=== PATIENT | female | born 1945 | race Caucasian/White ===

== ENCOUNTER → 2016-07-10 | Outpatient (CLI) | payer OTHER ==
[~2016-07-10] MED LIST: ASPI-232 PO; ATOR-22 PO; BROM0.07 OPL; CANA1TAB PO; CEPH500C2 PO; CHOL2000 PO; CIPR1TAB11 PO; FLUO20CA35 PO; FLUO27.5 PO; FLUT0.15 INH; FMR25 PO; GLC5 PO; GLC500 PO; GLUC10007 PO; LEVO125T4 PO; LEVO150T9 PO; LEVO175T PO; LISI2.5T5 PO; OXYB5TAB74 PO; PRED1SUS3 OPR; PRED20TA2 PO; TRN400 PO; VNTHFA/IN INH
--- NOTE | 2016-07-10 16:05 | DIAGNOSTIC IMAGING REPORT ---
PELVIC ULTRASOUND CLINICAL HISTORY: Postmenopausal bleeding. Status post right oophorectomy. COMPARISON STUDY: CT of the abdomen and pelvis November 21, 2011 and pelvic ultrasound January 21, 2013. TECHNIQUE: Transabdominal and transvaginal sonography of the pelvis was performed. FINDINGS: The uterus measures 6 x 3.4 x 2.5 cm. There is fluid within the endometrial cavity. The endometrium measures 4 mm in thickness. The left ovary was not visualized. Within the right adnexa, there is a 5.3 x 5 x 2.9 cm cystic abnormality. This is similar in appearance to exam of April 23, 2012. This remains indeterminate. No color flow shown within this finding. Slight irregularity of the wall is noted without definite mural nodularity. IMPRESSION: 1. No change in the 5.3 cm cystic focus within the right adnexa since ultrasound of April 23, 2012. Correlation with prior surgical history is recommended. By report, the patient is status post right oophorectomy. The imaging appearance favors a benign etiology although is considered pathologic in a postmenopausal patient. 2. Small amount of fluid within the endometrial cavity, a nonspecific finding. No significant endometrial thickening. 3. Nonvisualization of the left ovary. Electronically signed by: Ismael Darling M.D. 07/10/2016 4:04 PM Dictated Date/Time: 07/10/2016 3:59 PM
== END | disposition home or self-care (01) ==
LOC: C.ULTRBC 14:39
PROVIDERS: ATTEND Family Medicine
DX: N95.0 Postmenopausal bleeding (principal)

== ENCOUNTER → 2016-07-29 | Outpatient (CLI) | payer OTHER ==
[~2016-07-29] MED LIST changes: -BROM0.07 OPL; -LEVO175T PO; -PRED1SUS3 OPR
== END | disposition home or self-care (01) ==
LOC: C.PATHSPEC 17:36
PROVIDERS: ATTEND Obstetrics & Gynecology
DX: N95.0 Postmenopausal bleeding (principal); N85.8 Other specified noninflammatory disorders of uterus; Z51.0 Encounter for antineoplastic radiation therapy; C50.511 Malignant neoplasm of lower-outer quadrant of right female breast

== ENCOUNTER 2016-09-03 18:36 | Emergency (ER) | payer OTHER ==
[~2016-09-03] VITALS: Ht 170.2 cm; Wt 98.0 kg
[~2016-09-03 18:36] MED LIST changes: -CEPH500C2 PO; -DTR/5 PO; -FLUO27.5 PO; -GLUC10007 PO; -GLUCTAB7 PO; -LEVO125T5 PO; -LPT/40 PO; +OXYB5TAB74 PO; -PRED20TA2 PO; -TERB1CRE10 TOP; -VNTHFA/IN INH
[2016-09-03 18:40] VITALS: TEMP 36.6; Ht 170.2 cm; Wt 98.0 kg
[2016-09-03] MEDS ORDERED: SODIUM CHLORIDE 0.9% 1000ML 1,000 ML IV STA ×2 (18:51→19:41)
--- NOTE | 2016-09-03 18:54 | EMERGENCY ROOM VISIT NOTE ---
History Report prepared by Tomer: Alla Bhat Under the Supervision of: Dr. Ken Goode D.O. First contact with patient: 18:47 Chief Complaint: ABNORMAL LABS Stated Complaint: ABNORMAL LAB LEVELS History of Present Illness The patient is a 70 year old female who presents to the Emergency Room with complaints of abnormal lab results starting earlier today. The patient states that for the last 3 weeks she has been having respiratory issues and her PCP prescribed her prednisone and an antibiotic. The patient states that today she had a follow up today following radiation treatments ending in July and saw a [facility]. At this time she had blood work done and had a chest X-ray performed but they stated that tomorrow they would call her with the results. Later in the day the patient got a call stating her blood glucose was over 500 and her bilirubin was above 2 and to come into the ED to be evaluated. The patient states that she has not had any chest pain, pain or swelling in her legs or any recent fevers. The patient states that she had breast cancer and was treated with radiation treatments and did not need chemotherapy treatment and is currently not in need of further treatment. The patient states that she has been experiencing some increase in urinary frequency recently. Source of History: patient Onset: earlier today CLINICAL CYTOGENETICS DIRECTOR Position: other (global) Symptom Intensity: 500 blood glucose Associated Symptoms: + urinary symptoms (increased frequency), No chest pain , No fevers Note: Patient denies any leg pain or swelling Review of Systems See HPI for pertinent positives & negatives. A total of 10 systems reviewed and were otherwise negative. Past Medical & Surgical Medical Problems: (1) Peripheral artery disease (2) Type 2 diabetes mellitus Surgical Problems: (1) History of total adrenalectomy (2) History of tubal ligation Family History Patient reports no known family medical history. Social History Smoking Status: Former Smoker Alcohol Use: none Drug Use: none Marital Status: Occupation Status: employed Current/Historical Medications Scheduled Albuterol Hfa (Ventolin Hfa), 1 PUFF INH Q4 Aspirin (Aspir-81), 1 TAB PO DAILY Atorvastatin (Lipitor), 40 MG PO QAM Canagliflozin (Invokana), 1 TAB PO QAM Cephalexin Monohydrate (Keflex), 500 MG PO TID Cholecalciferol (Vitamin D3), 2 CAP PO DAILY Ciprofloxacin Tab (Cipro), 1 TAB PO BID Fluoxetine Hcl (Fluoxetine Hcl), 60 MG PO DAILY Glipizide (Glipizide), 1 TAB PO QAM Letrozole (Femara), 1 TAB PO DAILY Levothyroxine Sodium (Levothyroxine Sodium), 1 TAB PO DAILY Lisinopril (Lisinopril), 2.5 MG PO QAM Metformin HCl (Metformin HCl), 1,000 MG PO BID Oxybutynin Chloride (Ditropan), 10 MG PO QAM Pentoxifylline (Pentoxifylline ER), 1 TAB PO TID Scheduled PRN Fluticasone Propionate (Nasal) (Flonase Allergy Relief), 2 SPRAYS INH BID PRN for Nasal Congestion Miscellaneous Medications Prednisone (Prednisone Tab), 20 MG PO Allergies Coded Allergies: Coffee (Verified Allergy, Severe, TONGUE SWELLING,HIVES-COFFEE BEANS, 09/11) Magnesium Salicylate (Verified Adverse Reaction, Mild, migraines, 09/12/15) Physical Exam Vital Signs Date Time Temp Pulse Resp B/P Pulse Ox O2 Delivery O2 Flow Rate FiO2 09/03/16 21:42 74 18 139/74 99 09/03/16 20:15 72 17 118/53 95 Room Air 09/03/16 18:40 36.6 93 20 121/73 97 Physical Exam GENERAL: Patient is awake, alert, and in no acute distress. Patient is resting comfortably and showing no signs of anxiety EYES: The conjunctivae are clear. The pupils are round and reactive. EARS, NOSE, MOUTH AND THROAT: The nose is without any evidence of any deformity. Mucous membranes are moist tongue is midline NECK: The neck is nontender and supple. RESPIRATORY: Normal respiratory effort is noted there is no evidence of wheezing rhonchi or rales CARDIOVASCULAR: Regular rate and rhythm noted there no murmurs rubs or gallops normal S1 normal S2 GASTROINTESTINAL: The abdomen is soft. Bowel sounds are present in all quadrants. Abdomen is nontender MUSCULOSKELETAL/EXTREMITIES: There is no evidence of gross deformity full range of motion is noted in the hips and shoulders SKIN: There is no obvious evidence of any rash. There are no petechiae, pallor or cyanosis noted. NEUROLOGIC: Patient is awake alert and oriented x3. Medical Decision & Procedures ER Provider Diagnostic Interpretation: X-ray results as stated below per interpretation by me and the radiologist. CHEST 2 VIEWS ROUTINE CLINICAL HISTORY: cough dyspnea COMPARISON STUDY: HISTORY: 2015 FINDINGS: The bones soft tissues and hemidiaphragms are normal. The cardiomediastinal silhouette is normal. The lungs are clear. The pulmonary vasculature is normal. IMPRESSION: Negative chest. Electronically signed by: Rufus Perez M.D. 09/03/2016 8:22 PM Dictated Date/Time: 09/03/2016 8:22 PM Laboratory Results 09/03/16 19:05 Red Blood Count 5.09, Mean Corpuscular Volume 88.8, Mean Corpuscular Hemoglobin 31.2, Mean Corpuscular Hemoglobin Concent 35.2, Mean Platelet Volume 10.1, Neutrophils (%) (Auto) 68.4, Lymphocytes (%) (Auto) 21.2, Monocytes (%) (Auto) 7.9, Eosinophils (%) (Auto) 0.8, Basophils (%) (Auto) 0.2, Neutrophils # (Auto) 8.67, Lymphocytes # (Auto) 2.69, Monocytes # (Auto) 1.00, Eosinophils # (Auto) 0.10, Basophils # (Auto) 0.02 09/03/16 19:05 Test 09/03/16 19:05 09/03/16 20:00 White Blood Count 12.67 K/uL (4.8-10.8) Red Blood Count 5.09 M/uL (4.2-5.4) Hemoglobin 15.9 g/dL (12.0-16.0) Hematocrit 45.2 % (37-47) Mean Corpuscular Volume 88.8 fL (80-100) Mean Corpuscular Hemoglobin 31.2 pg (25-34) Mean Corpuscular Hemoglobin Concent 35.2 g/dl (32-36) Platelet Count 299 K/uL (130-400) Mean Platelet Volume 10.1 fL (7.4-10.4) Neutrophils (%) (Auto) 68.4 % Lymphocytes (%) (Auto) 21.2 % Monocytes (%) (Auto) 7.9 % Eosinophils (%) (Auto) 0.8 % Basophils (%) (Auto) 0.2 % Neutrophils # (Auto) 8.67 K/uL (1.4-6.5) Lymphocytes # (Auto) 2.69 K/uL (1.2-3.4) Monocytes # (Auto) 1.00 K/uL (0.11-0.59) Eosinophils # (Auto) 0.10 K/uL (0-0.5) Basophils # (Auto) 0.02 K/uL (0-0.2) RDW Standard Deviation 42.0 fL (36.4-46.3) RDW Coefficient of Variation 12.9 % (11.5-14.5) Immature Granulocyte % (Auto) 1.5 % Immature Granulocyte # (Auto) 0.19 K/uL (0.00-0.02) Prothrombin Time 10.2 SECONDS (9.0-12.0) Prothromb Time International Ratio 1.0 (0.9-1.1) Activated Partial Thromboplast Time 27.2 SECONDS (21.0-31.0) Partial Thromboplastin Ratio 1.0 Venous Blood pH 7.41 (7.36-7.41) Venous Blood Partial Pressure CO2 35 mmHg (38.0-50.0) Venous Blood Partial Pressure O2 37 mmHg Venous Blood HCO3 22 mmol/L Venous Blood Oxygen Saturation 68.5 % Venous Blood Base Excess -2.3 mmol/L Anion Gap 17.0 mmol/L (3-11) Est Creatinine Clear Calc Drug Dose 33.6 ml/min Estimated GFR () 30.6 Estimated GFR (Non- 26.4 BUN/Creatinine Ratio 19.6 (10-20) Calcium Level 9.6 mg/dl (8.5-10.1) Total Bilirubin 1.4 mg/dl (0.2-1) Direct Bilirubin 0.2 mg/dl (0-0.2) Aspartate Amino Transf (AST/SGOT) 14 U/L (15-37) Alanine Aminotransferase (ALT/SGPT) 31 U/L (12-78) Alkaline Phosphatase 106 U/L (45-117) Total Creatine Kinase 41 U/L (26-192) Creatine Kinase MB 2.0 ng/ml (0.5-3.6) Creatine Kinase MB Ratio 4.9 (0-3.0) Troponin I < 0.015 ng/ml (0-0.045) Total Protein 7.1 gm/dl (6.4-8.2) Albumin 3.5 gm/dl (3.4-5.0) Lipase 152 U/L (73-393) Beta-Hydroxybutyric Acid 1.36 mg/dL (0.2-2.81) Urine Color YELLOW Urine Appearance CLEAR (CLEAR) Urine pH 5.0 (4.5-7.5) Urine Specific Hines 1.032 (1.000-1.030) Urine Protein NEG (NEG) Urine Glucose (UA) 3+ (NEG) Urine Ketones NEG (NEG) Urine Occult Blood NEG (NEG) Urine Nitrite NEG (NEG) Urine Bilirubin NEG (NEG) Urine Urobilinogen NEG (NEG) Urine Leukocyte Esterase SMALL (NEG) Urine WBC (Auto) >30 /hpf (0-5) Urine RBC (Auto) 0-4 /hpf (0-4) Urine Hyaline Casts (Auto) 1-5 /lpf (0-5) Urine Epithelial Cells (Auto) 20-30 /lpf (0-5) Urine Bacteria (Auto) 1+ (NEG) Urine Yeast (Auto) BUD W/ HYPHAE (NONE PRSENT) Laboratory results per my review. Medications Administered Medications (Trade) Dose Ordered Sig/Karyna Route Start Time Stop Time Status Last Admin Dose Admin Sodium Chloride 1,000 ml @ 999 mls/hr Q1H1M STAT IV 09/03/16 18:51 09/03/16 19:51 DC 09/03/16 18:51 999 MLS/HR Sodium Chloride (Nss 1000ml) 1,000 ml @ 999 mls/hr Q1H1M STAT IV 09/03/16 19:41 09/03/16 20:41 DC 09/03/16 19:41 999 MLS/HR Albuterol (Ventolin Hfa Inhaler) 2 puffs NOW ONCE INH 09/03/16 21:15 09/03/16 21:16 DC 09/03/16 21:18 2 PUFFS Cephalexin Monohydrate (Keflex Cap) 500 mg NOW ONCE PO 09/03/16 21:15 09/03/16 21:16 DC 09/03/16 21:18 500 MG Cephalexin Monohydrate (Keflex 500MG Home Pack) 1 homepack NOW ONCE PO 09/03/16 21:15 09/03/16 21:16 DC 09/03/16 21:18 1 HOMEPACK ECG Indication: other (abnormal labs) Rate (beats per minute): 78 Rhythm: normal sinus Findings: no ectopy, other (No ST elevation) Comparison ECG Date: November 21, 2011 Change: no significant change ED Course 184: The patient was evaluated in room A3. A complete history and physical examination were performed. 1850: Ordered NSS 1,000 ml @ 999 mls/hr IV. 1940: Ordered NSS 1,000 ml @ 999 mls/hr IV 2022: I reevaluated the patient and she was resting comfortably. 2103: Upon reevaluation, the patient is resting comfortably. I discussed the results and treatment plan with her. She verbalized agreement of the treatment plan. The patient was discharged home. 2114: Ordered Cephalexin Monohydrate 1 homepack PO, Cephalexin Monohydrate 500 mg PO, Albuterol 2 puffs INH. Medical Decision Prior records/ancillary studies reviewed and summarized above. Nursing notes reviewed. Differential diagnosis: Etiologies such as metabolic, infection, hypo/hyperglycemia, electrolyte abnormalities, cardiac sources, intracerebral event, toxicologic, neurologic, as well as others were entertained. The patient is a 70-year-old female who presented to the emergency department for an evaluation of polyuria and polydipsia. The patient has a cough which is been ongoing for quite some time. She is currently taking Cipro and prednisone for the bronchitis. The patient had outpatient laboratory studies which revealed hyperglycemia which is likely secondary to the prednisone. She was told to go to the emergency department. She was treated with IV fluids in the emergency department. She appeared to have signs of urinary tract infection on urinalysis. She was started on antibiotic emergency department. I discussed the patient's laboratory and radiographic studies with her. She was encouraged to stop taking the prednisone. She was also encouraged to continue all other medications as prescribed. Is also encouraged to call her primary care physician in the morning to schedule follow-up appointment. She was also encouraged to return the emergency Department immediately if symptoms change worsen or the need arises. I also recommended that she have repeat laboratory studies done in 3-4 days to ensure her creatinine and her blood sugar were improving. Impression Primary Impression: Hyperglycemia Additional Impressions: Acute renal injury UTI (urinary tract infection) Scribe Attestation The scribe's documentation has been prepared under my direction and personally reviewed by me in its entirety. I confirm that the note above accurately reflects all work, treatment, procedures, and medical decision making performed by me. Departure Information Dispostion Home / Self-Care Prescriptions Albuterol Hfa (VENTOLIN HFA) 200 Puffs/91957 Mcg Aers 1 PUFF INH Q4, #1 INHALER Prov: Ken Goode, 09/03/16 Cephalexin Monohydrate (KEFLEX) 500 Mg Cap 500 MG PO TID, #28 CAP Prov: Ken Goode DO 09/03/16 Referrals Zane Mari DO (PCP) Forms HOME CARE DOCUMENTATION FORM, IMPORTANT VISIT INFORMATION, WORK / SCHOOL INSTRUCTIONS Patient Instructions [facility] Additional Instructions Call your family in the morning to schedule a follow-up appointment. Stop taking the steroid. Drink plenty of clear liquids. I would recommend repeat laboratory studies to recheck your kidney function as well as her blood sugar this week. Return to the emergency Department immediately if symptoms change worsen or if the need arises. Problem Qualifiers Additional Impressions: UTI (urinary tract infection) Urinary tract infection type: site unspecified Hematuria presence: without hematuria Qualified Codes: N39.0 - Urinary tract infection, site not specified
[2016-09-03] MEDS ORDERED: FLUO27.5 PO (19:07)
[2016-09-03] MEDS ORDERED: PRED20TA2 PO (19:07)
[2016-09-03 19:18] LABS: BASO % 0.2 %; BASO ABS # 0.02 K/uL (0-0.2); COMPLETE YES; EOS % 0.8 %; HEMATOCRIT 45.2 % (37-47); IG% 1.5 %; LYMPH % 21.2 %; LYMPH ABS # 2.69 K/uL (1.2-3.4); MEAN CELL VOLUME 88.8 fL (80-100); MEAN CORPUSCULAR HEMOGLOBIN 31.2 pg (25-34); MEAN CORPUSCULAR HGB CONC 35.2 g/dl (32-36); MEAN PLATELET VOLUME 10.1 fL (7.4-10.4); MONO % 7.9 %; NEUT % 68.4 %; PLATELET COUNT 299 K/uL (130-400); RED BLOOD COUNT 5.09 M/uL (4.2-5.4); WHITE BLOOD COUNT 12.67 K/uL (4.8-10.8)
[2016-09-03 19:19] LABS: VEN BLD GAS O2 SATURATION 68.5 %; VEN BLOOD GAS BASE EXCESS -2.3 mmol/L
[2016-09-03 19:35] LABS: PROTHROMBIN TIME (PATIENT) 10.2 SECONDS (9.0-12.0)
[2016-09-03 19:53] LABS: ALKALINE PHOSPHATASE 106 U/L (45-117); ALT/SGPT 31 U/L (12-78); AST/SGOT 14 U/L (15-37); BETA-HYDROXYBUTYRATE 1.36 mg/dL (0.2-2.81); BLOOD UREA NITROGEN 37 mg/dl (7-18); BUN/CREATININE RATIO 19.6 (10-20); CALCIUM 9.6 mg/dl (8.5-10.1); CARBON DIOXIDE 17 mmol/L (21-32); CHLORIDE 98 mmol/L (98-107); CKMB/CK RATIO 4.9 (0-3.0); GLUCOSE 387 mg/dl (70-99); POTASSIUM 4.2 mmol/L (3.5-5.1); SODIUM 132 mmol/L (136-145)
[2016-09-03 20:17] LABS: URINE APPEARANCE CLEAR (CLEAR); URINE BILIRUBIN NEG (NEG); URINE COLOR YELLOW; URINE EPITHELIAL CELL AUTO 20-30 /lpf (0-5); URINE NITRITE NEG (NEG); URINE SPECIFIC GRAVITY 1.032 (1.000-1.030); UROBILINOGEN NEG (NEG)
[2016-09-03 20:19] LABS: REVIEW REQ? YES
[2016-09-03 20:20] LABS: MANUAL MICROSCOPIC REQUIRED? NO
--- NOTE | 2016-09-03 20:23 | DIAGNOSTIC IMAGING REPORT ---
CHEST 2 VIEWS ROUTINE CLINICAL HISTORY: cough dyspnea COMPARISON STUDY: HISTORY: 2015 FINDINGS: The bones soft tissues and hemidiaphragms are normal. The cardiomediastinal silhouette is normal. The lungs are clear. The pulmonary vasculature is normal. IMPRESSION: Negative chest. Electronically signed by: Rufus Perez M.D. 09/03/2016 8:22 PM Dictated Date/Time: 09/03/2016 8:22 PM
[2016-09-03] MEDS ORDERED: VNTHFA/IN INH (21:10)
[2016-09-03] MEDS ORDERED: CEPH500C2 PO (21:10)
[2016-09-03] MEDS ORDERED: CEPHALEXIN 500MG HOME PACK 1 EA BTL PO ONE (21:15)
[2016-09-03] MEDS ORDERED: ALBUTEROL HFA 8 GM INHALER INH ONE (21:15)
[2016-09-03] MEDS ORDERED: CEPHALEXIN MONOHYDRATE 250 MG CAP PO ONE (21:15)
[2016-09-03 21:42] VITALS: BP 139/74; PULSE 74; O2SAT 99
[2017-03-06] MEDS ORDERED: GLUC10007 PO (14:44)
[2017-03-06] MEDS ORDERED: LEVO125T4 PO (14:44)
== END 2016-09-03 21:49 | disposition home or self-care (01) ==
LOC: C.EDB 18:38 → C.EDA 21:49
DX: E11.65 Type 2 diabetes mellitus with hyperglycemia (principal); N17.9 Acute kidney failure, unspecified; N39.0 Urinary tract infection, site not specified; I73.9 Peripheral vascular disease, unspecified; Z85.3 Personal history of malignant neoplasm of breast; E89.6 Postprocedural adrenocortical (-medullary) hypofunction; Z98.51 Tubal ligation status; Z87.891 Personal history of nicotine dependence; Z79.82 Long term (current) use of aspirin; Z79.84 Long term (current) use of oral hypoglycemic drugs; Z08 Encounter for follow-up examination after completed treatment for malignant neoplasm; Z92.3 Personal history of irradiation

== ENCOUNTER → 2016-09-03 | Outpatient (CLI) | payer OTHER ==
[~2016-09-03] MED LIST changes: +DTR/5 PO; +GLUCTAB7 PO; -LEVO125T4 PO; +LEVO125T5 PO; +LPT/40 PO; -OXYB5TAB74 PO; +TERB1CRE10 TOP
[2016-09-03 14:53] VITALS: BP 101/64; PULSE 84; TEMP 36.7; O2SAT 93
--- NOTE | 2016-09-03 16:42 | Radiation Oncology Follow-Up ---
Radiation Oncology Follow-Up Date of Visit Sep 03, 2016. Reason For Visit One-month follow-up a cancer survivorship care plan Radiation Completion Date 08/02/16 APB Diagnosis (1) Breast cancer Status: Acute Onset Date: 04/17/2016 Histology Subtype: ductal Stage: l (A) Permanent Comment: Abnormal right breast mammogram 04/17/2016 Status post stereotactic guided biopsy of the right breast 05/27/2016 revealing microinvasive ductal carcinoma Status post right partial mastectomy and sentinel lymph node biopsy 06/21/2016 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 Status post completion of radiation therapy 08/02/2016 received 3850 cGy utilizing accelerated partial breast treatment Last Edited By: Tati Tyler on Aug 09, 2016 09:42 History of Present Illness Ms. Shah is a 70-year-old female without a family history of breast cancer. She has been followed by annual screening mammograms. On 04/17/2016 patient underwent bilateral digital screening mammogram with CAD. This showed a new cluster of calcifications in the right anterior subareolar breast best seen on the craniocaudad view. There likely in the lower right breast on the MLO view. These calcifications are indeterminate and additional views were recommended. On 05/06/2016 patient underwent a unilateral right digital diagnostic mammogram. This confirmed a cluster of punctate and linear microcalcifications extending in a linear distribution over 9 mm in the 7:00 anterior right breast that is indeterminate. This warrants further evaluation with tissue sampling. No obvious arc detectable distortion or masses are identified. On 05/27/2016 the patient underwent a stereotactic guided biopsy of the lower outer quadrant of the right breast. This revealed a high-grade ductal carcinoma in situ with nuclear grade 3 of 3 and comedonecrosis. These areas were multiple with the largest measuring 6 mm in greatest dimension. Also noted was an area of microinvasive ductal carcinoma measuring 0.67 mm. This microinvasive carcinoma was within in a small nest of high-grade DCIS. The DCIS was ER and UT positive. The evaluation by HER-2 gene amplification by FISH was reported as negative. Case: [id number]. Patient was seen by Dr. Martínez Willis who discussed treatment options. The patient opted to proceed with the breast conserving technique. Therefore on she underwent a right partial mastectomy and sentinel node biopsy. The sentinel node was negative with no evidence of metastatic disease. The residual tissue excised contained no invasive carcinoma. There was however residual ductal carcinoma in situ, high-grade without necrosis. The examined margins of resection were negative however the DCIS was present less than 1 mm from the inked deep margins. As noted by Dr. Willis the deep margin is represented by the muscle fascia. He indicated that the muscle fascia contained no invasive or noninvasive disease. Therefore the deep margin is clearly negative. Case: [id number]. The patient has recovered well from surgery. She is felt to be a candidate for tamoxifen therapy but not for Arimidex. We were asked to see her in referral to discuss the potential role of adjuvant radiation. Options of treatment were reviewed with her. She returned for CT simulation. She was found to be a candidate for accelerated partial breast treatment. Treatment was given from 07/29/2016 to 08/02/2016. She received 3850 cGy. Interim History She has noticed no changes of her breast. She has noticed no masses or tenderness and no change of the axilla she's had no swelling of her arm. She is seen Dr. Willis follow-up and has recommended that she have a mammogram in November. She is going to call and schedule the mammogram on her an. This would be a digital diagnostic mammogram and it will be the right breast. She unfortunately has been having difficulty with viral illnesses and sinusitis. In June she had nausea, vomiting, and diarrhea. She then developed a sinus infection. She was seen by her primary care physician and given antibiotic therapy and then steroids. She continues to have a residual cough which is mildly productive. She has had a poor appetite and has lost approximately 16 pounds over the past 4 weeks. She is fatigued. She saw Dr. Wise and has been started on Femara. Allergies Coded Allergies: Coffee (Verified Allergy, Severe, TONGUE SWELLING,HIVES-COFFEE BEANS, 09/11) Magnesium Salicylate (Verified Adverse Reaction, Mild, migraines, 09/12/15) Home Medications Scheduled Aspirin (Aspir-81), 1 TAB PO DAILY Atorvastatin (Lipitor), 40 MG PO QAM Canagliflozin (Invokana), 1 TAB PO QAM Cholecalciferol (Vitamin D3), 2 CAP PO DAILY Ciprofloxacin Tab (Cipro), 1 TAB PO BID Fluoxetine (Prozac), 60 MG PO QAM Glipizide (Glipizide), 1 TAB PO QAM Letrozole (Femara), 1 TAB PO DAILY Levothyroxine Sodium (Levothyroxine Sodium), 1 TAB PO DAILY Lisinopril (Lisinopril), 2.5 MG PO QAM Metformin HCl (Metformin HCl), 1,000 MG PO BID Oxybutynin Chloride (Ditropan), 10 MG PO QAM Pentoxifylline (Pentoxifylline ER), 1 TAB PO TID Miscellaneous Medications Fluticasone Propionate (Nasal) (Flonase Allergy Relief) Review of Systems Gastrointestinal: Symptoms: Nausea, Vomiting GI Comments: Has vomited 3 times in the past 3 weeks;vomits and nausea resolves; Oral: Symptoms: No Problems Respiratory: Symptoms: Moist Cough, Productive Cough Respiratory Comments: Yellow nasal drainage with blowing nose; Other Respiratory: Does't look at sputum color. Urinary: Symptoms: WNL Skin: Symptoms: No Problems Breast: Right Upper Arm Measurement: 31.5 Right Mid Arm Measurement: 26.0 Right Wrist Measurement: 17.0 Left Upper Arm Measurement: 32.0 Left Mid Arm Measurement: 25.0 Left Wrist Measurement: 17.0 Arm Dominence: Right Physical Exam Vital Signs Date Time Temp Pulse Resp B/P Pulse Ox O2 Delivery O2 Flow Rate FiO2 09/03/16 14:53 36.7 84 20 101/64 93 Fatigue: Moderate General Appearance: no apparent distress Eyes: normal inspection, EOMI ENT: normal ENT inspection, hearing grossly normal Neck: no adenopathy, thyroid normal Respiratory/Chest: lungs clear, no respiratory distress, no accessory muscle use Breast: Breast examination reveals well-healed incisions of the right breast. There are no masses or tenderness and no axillary adenopathy. There is some edema of the nipple in the lower quadrants. Using the [place] score cosmesis she has a good outcome. The left breast showed no masses or tenderness and no axillary adenopathy. Cardiovascular: regular rate, rhythm, no gallop, no murmur Abdomen: non tender, soft Extremities: no pedal edema Neurologic/Psychiatric: no motor/sensory deficits, alert, normal mood/affect Skin: warm/dry Lymphatic: no adenopathy Laboratory Studies Test 09/03/16 15:58 Assessment & Plan Plan: Continue follow-up with Dr. Willis and her primary care physician. Continue follow-up with Dr. Wise. She'll be scheduling her mammogram for November. Due to the weight loss and upper respiratory infection symptoms laboratory studies were ordered. We'll plan to send a copy of these to Dr. Vivian Reddy. I included laboratory studies that he had recommended on his last note. We'll also obtain a chest x-ray due to the cough. She will be notified as to results of these studies. Today we completed a cancer survivorship care plan. A copy of the document was given to the patient. She was given a survivorship booklet. We asked her to return to our office in 6 months. She' ll need to continue to follow with her primary care physician in regards to her upper respiratory symptoms. Total Time In Follow-Up I spent 25 minutes speaking to the patient performing examination. I spent 20 minutes reviewing information in completing this note. Copy To Martínez Willis M.D.; Zane Mari, ; Tristan Wise MD Problem Qualifiers (1) Breast cancer: Breast location: lower outer quadrant of breast Laterality: right
[2016-09-03 16:44] LABS: BASO % 0.2 %; BASO ABS # 0.03 K/uL (0-0.2); COMPLETE YES; EOS % 0.7 %; HEMATOCRIT 46.6 % (37-47); IG% 1.6 %; LYMPH % 20.3 %; MEAN CELL VOLUME 90.1 fL (80-100); MEAN CORPUSCULAR HEMOGLOBIN 30.6 pg (25-34); MEAN CORPUSCULAR HGB CONC 33.9 g/dl (32-36); MEAN PLATELET VOLUME 10.3 fL (7.4-10.4); MONO % 5.9 %; NEUT % 71.3 %; PLATELET COUNT 300 K/uL (130-400); RED BLOOD COUNT 5.17 M/uL (4.2-5.4); WHITE BLOOD COUNT 12.81 K/uL (4.8-10.8)
[2016-09-03 17:21] LABS: ALKALINE PHOSPHATASE 102 U/L (45-117); ALT/SGPT 35 U/L (12-78); AST/SGOT 9 U/L (15-37); BLOOD UREA NITROGEN 40 mg/dl (7-18); CALCIUM 9.2 mg/dl (8.5-10.1); CARBON DIOXIDE 24 mmol/L (21-32); CHLORIDE 98 mmol/L (98-107); GLUCOSE 520 mg/dl (70-99); SODIUM 132 mmol/L (136-145)
[2016-09-03 17:43] LABS: BETA-HYDROXYBUTYRATE 0.93 mg/dL (0.2-2.81)
== END | disposition home or self-care (01) ==
LOC: C.ONC 14:47
PROVIDERS: ATTEND Physician Assistant Medical
DX: Z08 Encounter for follow-up examination after completed treatment for malignant neoplasm (principal); Z92.3 Personal history of irradiation; Z85.3 Personal history of malignant neoplasm of breast

== ENCOUNTER → 2016-12-20 | Outpatient (CLI) | payer OTHER ==
[~2016-12-20] MED LIST changes: +CEPH500C2 PO; +DTR/5 PO; -FLUO20CA35 PO; +FLUO27.5 PO; +GLUC10007 PO; +GLUCTAB7 PO; +LEVO125T5 PO; +LPT/40 PO; -OXYB5TAB74 PO; +PRED20TA2 PO; +TERB1CRE10 TOP; +VNTHFA/IN INH
--- NOTE | 2016-12-20 16:02 | MAMMOGRAPHY REPORT ---
UNILATERAL RIGHT DIGITAL DIAGNOSTIC MAMMOGRAM TOMOSYNTHESIS WITH CAD: 12/20/2016 CLINICAL HISTORY: History of right breast cancer status post lumpectomy May 2016 as well as radi ation therapy. The patient reports no current complaints. TECHNIQUE: Breast tomosynthesis in addition to standard 2D mammography was performed. Current study was also evaluated with a Computer Aided Detection (CAD) system. Right CC and MLO 2-D and tomosynthe sis images and spot magnification right cc and ML views were obtained. COMPARISON: Comparison is made to exams dated: 05/27/2016 mammogram, 05/27/2016 stereotactic biopsy, 05/06/2016 mammogram, 04/17/2016 mammogram, 04/14/2015 mammogram, and 04/13/2014 mammogram - [facility]. BREAST COMPOSITION: The tissue of the right breast is heterogeneously dense, which may obscure small masses. FINDINGS: There are new post surgical changes in the right central breast status post lumpectomy, in cluding architectural distortion and surgical clips at the lumpectomy bed. A linear scar marker alex henrique a scar on the right breast. Spot magnification views of the lumpectomy bed demonstrate no suspic ious masses or clusters of microcalcifications at the lumpectomy bed. 2 coarse benign-appearing calc ifications within the right upper inner quadrant are stable compared to prior exams including the 201 5 exam. The remainder of the right breast is stable compared to prior exams, without suspicious mass es, calcifications, or areas of architectural distortion noted. Small nodular asymmetry in the right superior breast on the MLO view middle depth is stable compared to the 2011 exam. IMPRESSION: ACR-BI-RADS CATEGORY 3: PROBABLY BENIGN Expected post surgical changes status post lumpectomy, without mammographic evidence of malignancy in the right breast. Recommend bilateral diagnostic mammograms in 6 months, to reevaluate the right br east postsurgical changes and for routine mammography of the left breast. The patient has been verbally notified of the results. Approximately 10% of breast cancers are not detected with mammography. A negative mammographic report should not delay biopsy if a clinically suggestive mass is present. Samara Holden M.D. /:12/20/2016 14:44:13 Hardware Engineering Manager: Ronnell ARIAS(R)(Paresh), [facility] letter sent: Personal History 3 BI-RADS Code: ACR-BI-RADS Category 3: Probably Benign
== END | disposition home or self-care (01) ==
LOC: C.MAMM 14:10
PROVIDERS: ATTEND Surgery
DX: Z08 Encounter for follow-up examination after completed treatment for malignant neoplasm (principal); Z85.3 Personal history of malignant neoplasm of breast; Z92.3 Personal history of irradiation

== ENCOUNTER → 2017-03-06 | Outpatient (CLI) | payer OTHER ==
[~2017-03-06] MED LIST changes: -DTR/5 PO; -GLUCTAB7 PO; +LEVO125T4 PO; -LEVO125T5 PO; -LPT/40 PO; +OXYB5TAB74 PO; -TERB1CRE10 TOP
[2017-03-06 14:29] VITALS: BP 114/65; PULSE 77; TEMP 37; O2SAT 94
--- NOTE | 2017-03-06 15:28 | Radiation Oncology Follow-Up ---
Radiation Oncology Follow-Up Date of Visit Mar 06, 2017. Reason For Visit Six-month follow-up Radiation Completion Date finished accelerated partial breast radiation therapy 08-02-16 Diagnosis (1) Breast cancer Status: Resolved Onset Date: 04/17/2016 Stage: l (A) Permanent Comment: Abnormal right breast mammogram 04/17/2016 Status post stereotactic guided biopsy of the right breast 05/27/2016 revealing microinvasive ductal carcinoma Status post right partial mastectomy and sentinel lymph node biopsy 06/21/2016 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 Status post completion of radiation therapy 08/02/2016 received 3850 cGy utilizing accelerated partial breast treatment Last Edited By: Tati Tyler on Aug 09, 2016 09:42 History of Present Illness Ms. Shah is a 70-year-old female without a family history of breast cancer. She has been followed by annual screening mammograms. On 04/17/2016 patient underwent bilateral digital screening mammogram with CAD. This showed a new cluster of calcifications in the right anterior subareolar breast best seen on the craniocaudad view. There likely in the lower right breast on the MLO view. These calcifications are indeterminate and additional views were recommended. On 05/06/2016 patient underwent a unilateral right digital diagnostic mammogram. This confirmed a cluster of punctate and linear microcalcifications extending in a linear distribution over 9 mm in the 7:00 anterior right breast that is indeterminate. This warrants further evaluation with tissue sampling. No obvious arc detectable distortion or masses are identified. On 05/27/2016 the patient underwent a stereotactic guided biopsy of the lower outer quadrant of the right breast. This revealed a high-grade ductal carcinoma in situ with nuclear grade 3 of 3 and comedonecrosis. These areas were multiple with the largest measuring 6 mm in greatest dimension. Also noted was an area of microinvasive ductal carcinoma measuring 0.67 mm. This microinvasive carcinoma was within in a small nest of high-grade DCIS. The DCIS was ER and CO positive. The evaluation by HER-2 gene amplification by FISH was reported as negative. Case: [id number]. Patient was seen by Dr. Martínez Willis who discussed treatment options. The patient opted to proceed with the breast conserving technique. Therefore on she underwent a right partial mastectomy and sentinel node biopsy. The sentinel node was negative with no evidence of metastatic disease. The residual tissue excised contained no invasive carcinoma. There was however residual ductal carcinoma in situ, high-grade without necrosis. The examined margins of resection were negative however the DCIS was present less than 1 mm from the inked deep margins. As noted by Dr. Willis the deep margin is represented by the muscle fascia. He indicated that the muscle fascia contained no invasive or noninvasive disease. Therefore the deep margin is clearly negative. Case: [id number]. The patient has recovered well from surgery. She is felt to be a candidate for tamoxifen therapy but not for Arimidex. We were asked to see her in referral to discuss the potential role of adjuvant radiation. Options of treatment were reviewed with her. She returned for CT simulation. She was found to be a candidate for accelerated partial breast treatment. Treatment was given from 07/29/2016 to 08/02/2016. She received 3850 cGy. Interim History She's been doing well over this past month. She has noted no changes to her breasts. She has no masses or tenderness no change of the axilla. She has no swelling of her arm. She is up-to-date on mammography. She continues on Femara. At her last visit she had complained of a loss and feeling poorly. Laboratory studies were obtained. She was found have a blood sugar greater than 500. She went to the emergency room at our request. She was evaluated and treated. She had been on steroids for bronchitis which caused the sugar to go up. She has become much more aware of her type 2 diabetes and is proactive in checking her blood sugars and watching her diet. She has completed diabetic education classes and will now be joining a support group. Allergies Coded Allergies: Coffee (Verified Allergy, Severe, TONGUE SWELLING,HIVES-COFFEE BEANS, 09/11) Magnesium Salicylate (Verified Adverse Reaction, Mild, migraines, 09/12/15) Home Medications Scheduled Aspirin (Aspir-81), 1 TAB PO DAILY Atorvastatin (Lipitor), 40 MG PO QAM Canagliflozin (Invokana), 1 TAB PO QAM Cholecalciferol (Vitamin D3), 2 CAP PO DAILY Fluoxetine Hcl (Fluoxetine Hcl), 60 MG PO DAILY Glipizide (Glipizide), 1 TAB PO QAM Glucosamine Sulfate (Glucosamine), 1,000 MG PO TID Letrozole (Femara), 1 TAB PO DAILY Levothyroxine Sodium (Levothyroxine Sodium), 1 TAB PO DAILY Lisinopril (Lisinopril), 2.5 MG PO QAM Metformin HCl (Metformin HCl), 1,000 MG PO BID Oxybutynin Chloride (Ditropan), 10 MG PO QAM Pentoxifylline (Pentoxifylline ER), 1 TAB PO TID Review of Systems Gastrointestinal: Symptoms: WNL Oral: Symptoms: No Problems Respiratory: Symptoms: WNL Urinary: Symptoms: Nocturia Comments: nocturia times 1 Skin: Symptoms: No Problems Breast: Right Upper Arm Measurement: 33.0 Right Mid Arm Measurement: 26.0 Right Wrist Measurement: 17.4 Left Upper Arm Measurement: 31.5 Left Mid Arm Measurement: 25.5 Left Wrist Measurement: 17.1 Arm Dominence: Right Patient Cosmetic Evaluation: Excellent Staff Cosmetic Evalaluation: Excellent Physical Exam Vital Signs Date Time Temp Pulse Resp B/P (MAP) Pulse Ox O2 Delivery O2 Flow Rate FiO2 03/06/17 14:29 37.0 77 16 114/65 94 Pain: Side: Bilateral Patient Pain Scale: 0 - 10 Initial Pain Intensity: 0.0 Fatigue: None General Appearance: no apparent distress Eyes: normal inspection, EOMI ENT: normal ENT inspection, hearing grossly normal Neck: no adenopathy, thyroid normal Respiratory/Chest: lungs clear, no respiratory distress, no accessory muscle use Breast: Breast examination reveals well-healed incisions of the right breast. There are no masses or tenderness and no axillary adenopathy. She has no skin retractions or nipple changes. Using the Flushing score of cosmesis, she has an excellent outcome. The left breast showed no masses or tenderness and no axillary adenopathy. Cardiovascular: regular rate, rhythm, no gallop, no murmur Abdomen: non tender, soft Extremities: no pedal edema Neurologic/Psychiatric: no motor/sensory deficits, alert, normal mood/affect Skin: warm/dry Laboratory Studies Test 12/18/16 14:26 White Blood Count 9.45 K/uL (4.8-10.8) Red Blood Count 4.85 M/uL (4.2-5.4) Hemoglobin 15.0 g/dL (12.0-16.0) Hematocrit 46.0 % (37-47) Mean Corpuscular Volume 94.8 fL (80-100) Mean Corpuscular Hemoglobin 30.9 pg (25-34) Mean Corpuscular Hemoglobin Concent 32.6 g/dl (32-36) Platelet Count 318 K/uL (130-400) Mean Platelet Volume 10.0 fL (7.4-10.4) Neutrophils (%) (Auto) 66.2 % Lymphocytes (%) (Auto) 26.3 % Monocytes (%) (Auto) 5.3 % Eosinophils (%) (Auto) 1.6 % Basophils (%) (Auto) 0.3 % Neutrophils # (Auto) 6.25 K/uL (1.4-6.5) Lymphocytes # (Auto) 2.49 K/uL (1.2-3.4) Monocytes # (Auto) 0.50 K/uL (0.11-0.59) Eosinophils # (Auto) 0.15 K/uL (0-0.5) Basophils # (Auto) 0.03 K/uL (0-0.2) RDW Standard Deviation 44.3 fL (36.4-46.3) RDW Coefficient of Variation 13.0 % (11.5-14.5) Immature Granulocyte % (Auto) 0.3 % Immature Granulocyte # (Auto) 0.03 K/uL (0.00-0.02) Sodium Level 140 mmol/L (136-145) Potassium Level 4.6 mmol/L (3.5-5.1) Chloride Level 106 mmol/L (98-107) Carbon Dioxide Level 24 mmol/L (21-32) Anion Gap 10.0 mmol/L (3-11) Blood Urea Nitrogen 29 mg/dl (7-18) Creatinine 1.50 mg/dl (0.60-1.20) Estimated GFR () 40.5 Estimated GFR (Non- 34.9 BUN/Creatinine Ratio 19.3 (10-20) Random Glucose 125 mg/dl (70-99) Calcium Level 9.6 mg/dl (8.5-10.1) Total Bilirubin 0.9 mg/dl (0.2-1) Aspartate Amino Transferase (AST) 16 U/L (15-37) Alanine Aminotransferase (ALT) 25 U/L (12-78) Alkaline Phosphatase 100 U/L (45-117) Lactate Dehydrogenase 128 U/L (84-246) Total Protein 7.5 gm/dl (6.4-8.2) Albumin 3.9 gm/dl (3.4-5.0) Globulin 3.6 gm/dl (2.5-4.0) Albumin/Globulin Ratio 1.1 (0.9-2) Additional Studies Patient: NASRA MANNING Rec: [id number] Address[address]: [address] Address2: Acct ID: [id number] Date: 1945 Sex: F Ref Phy: Abdiaziz Nettles M.D. Att Phy: Martínez Willis M.D. Jesusita Phy: Zane Mari, Inter Phy: Samara Holden MD [facility] Zip: [place] [address] SC: .MAMM Report #: [id number] Utilities Estimator And Drafter: SHAR Diagnosis: 6 MONTH F/U S/P BREAST SURGERY Service Date: 12/20/16 MNE: [id number] Ordering Dr: Martínez Willis M.D. CC: Martínez Willis M.D. CONF: DICTATED BY: Samara Holden MD MAMMOGRAPHY REPORT UNILATERAL RIGHT DIGITAL DIAGNOSTIC MAMMOGRAM TOMOSYNTHESIS WITH CAD: 12/20/2016 CLINICAL HISTORY: History of right breast cancer status post lumpectomy May 2016 as well as radiation therapy. The patient reports no current complaints. TECHNIQUE: Breast tomosynthesis in addition to standard 2D mammography was performed. Current study was also evaluated with a Computer Aided Detection (CAD ) system. Right CC and MLO 2-D and tomosynthesis images and spot magnification right cc and ML views were obtained. COMPARISON: Comparison is made to exams dated: 05/27/2016 mammogram, 2015 stereotactic biopsy, 05/06/2016 mammogram, 04/17/2016 mammogram, 04/14/2015 mammogram, and 04/13/2014 mammogram - [facility]. BREAST COMPOSITION: The tissue of the right breast is heterogeneously dense, which may obscure small masses. FINDINGS: There are new post surgical changes in the right central breast status post lumpectomy, including architectural distortion and surgical clips at the lumpectomy bed. A linear scar marker denotes a scar on the right breast. Spot magnification views of the lumpectomy bed demonstrate no suspicious masses or clusters of microcalcifications at the lumpectomy bed. 2 coarse benign-appearing calcifications within the right upper inner quadrant are stable compared to prior exams including the 2015 exam. The remainder of the right breast is stable compared to prior exams, without suspicious masses, calcifications, or areas of architectural distortion noted. Small nodular asymmetry in the right superior breast on the MLO view middle depth is stable compared to the 2011 exam. IMPRESSION: ACR-BI-RADS CATEGORY 3: PROBABLY BENIGN Expected post surgical changes status post lumpectomy, without mammographic evidence of malignancy in the right breast. Recommend bilateral diagnostic mammograms in 6 months, to reevaluate the right breast postsurgical changes and for routine mammography of the left breast. The patient has been verbally notified of the results. Approximately 10% of breast cancers are not detected with mammography. A negative mammographic report should not delay biopsy if a clinically suggestive mass is present. Samara Holden M.D. ah/:12/20/2016 14:44:13 Company Driver: Ronnell ARIAS(Alphonse)(Paersh), [facility] letter sent: Personal History 3 BI-RADS Code: ACR-BI-RADS Category 3: Probably Benign Dictated by: Samara Holden MD Signed by: Samara Holden MD Assessment & Plan Plan: Continue regular follow-up with Dr. Wise, her breast surgeon, and Dr. Mari. Continue with scheduled mammography. She is due for her next mammogram in May. She continues on Femara. We asked her to return to our office in 1 year. She may call if she has any questions or concerns in the interim. Total Time In Follow-Up I spent 20 minutes speaking to the patient and performing examination. I spent 15 minutes reviewing information and completeness note. Copy To Martínez Willis M.D.; Zane Mari, DO; Tristan Wise MD Problem Qualifiers (1) Breast cancer: Breast location: lower outer quadrant of breast Estrogen receptor status: positive Patient sex: female Laterality: right Qualified Codes: C50.511 - Malignant neoplasm of lower-outer quadrant of right female breast; Z17.0 - Estrogen receptor positive status [ER+]
== END | disposition home or self-care (01) ==
LOC: C.ONC 14:15
PROVIDERS: ATTEND Physician Assistant Medical
DX: Z08 Encounter for follow-up examination after completed treatment for malignant neoplasm (principal); Z92.3 Personal history of irradiation; Z85.3 Personal history of malignant neoplasm of breast

== ENCOUNTER → 2017-06-02 | Day surgery (SDC) | payer OTHER ==
[2017-05-20 07:42] VITALS: Ht 170.2 cm; Wt 97.3 kg
[~2017-06-02] VITALS: Ht 170.2 cm; Wt 97.3 kg
[~2017-06-02] MED LIST changes: -ATOR-22 PO; -CEPH500C2 PO; -CIPR1TAB11 PO; +DTR/5 PO; -FLUT0.15 INH; -GLUC10007 PO; +GLUCTAB7 PO; -LEVO125T4 PO; +LEVO125T5 PO; -LEVO150T9 PO; +LIDOCAINE HCL 2% 2 ML VIAL (20MG/ML) ONE; +LPT/40 PO; -OXYB5TAB74 PO; -PRED20TA2 PO; +PROPOFOL IV EMULSION 10 MG/ML 20 ML VIAL IV ONE; +TERB1CRE10 TOP; -VNTHFA/IN INH
--- NOTE | 2017-06-02 14:07 | Endo History and Physical ---
History & Physical Date of Service: Jun 02, 2017. Chief Complaint: 5 yr F/U, hx of polyps Referring Physician: Ruthy Mari History of Present Illness For colonoscopy Past Medical History Cancer, High Cholesterol, Thyroid Disease, Depression Past Surgical History Hx Cardiac Surgery: No Hx Internal Defibrillator: No Hx Pacemaker: No Hx Abdominal Surgery: Yes (RT OVARIAN CYSTECTOMY) Hx of Implantable Prosthesis: No Hx Post-Op Nausea and Vomiting: No Hx Cancer Surgery: Yes (RT BREAST LUMPECTOMY) Hx Thoracic Surgery: No Hx Orthopedic: No Hx Urinary Tract Surgery: No Family History Colon CA Social History Smoking Status: Former Smoker Hx Substance Use: No Hx Alcohol Use: No Allergies Coded Allergies: Coffee (Verified Allergy, Severe, TONGUE SWELLING,HIVES-COFFEE BEANS, 06/02) Magnesium Salicylate (Verified Adverse Reaction, Mild, migraines, 06/02/17) Current Medications Reported Home Medications Medications Dose Route/Sig Max Daily Dose Days Date Category Lamisil At Athletes Foot (Terbinafine Hcl (Topical)) 1 % Cre 1 Dose TOP DAILY 05/20/17 Reported Glucosamine Chondroitin (Kefwbbhhdsk-Uaadadtnbjv-Pse C-) 1 Tab Tab 1 Tab PO TID 05/20/17 Reported Lipitor (Atorvastatin) 40 Mg Tab 40 Mg PO QAM 05/20/17 Reported Levothyroxine Sodium 125 Mcg Tab 1 Tab PO QAM 03/06/17 Reported Fluoxetine Hcl 60 Mg Tab 60 Mg PO QAM 09/03/16 Reported Femara (Letrozole) 2.5 Mg Tab 1 Tab PO AFTERNOON 09/03/16 Reported Vitamin D3 (Cholecalciferol) 2,000 Unit Cap 2 Cap PO QAM 07/11/16 Reported Pentoxifylline ER (Pentoxifylline) 400 Mg Tabcr 1 Tab PO TID 07/11/16 Reported Aspir-81 (Aspirin) 81 Mg Tab 1 Tab PO QAM 07/11/16 Reported Ditropan (Oxybutynin Chloride) 5 Mg Tab 10 Mg PO QAM 06/19/15 Reported Metformin HCl 500 Mg Tab 1,000 Mg PO BID 06/19/15 Reported Glipizide 5 Mg Tab 1 Tab PO QAM 06/19/15 Reported Invokana (Canagliflozin) 100 Mg Tab 1 Tab PO QAM 06/19/15 Reported Lisinopril 2.5 Mg Tab 2.5 Mg PO QAM 06/19/15 Reported Vital Signs Weight (Kilograms): 97.27 Height (Feet): 5 Height (Inches): 7 Date Time Temp Pulse Resp B/P (MAP) Pulse Ox O2 Delivery O2 Flow Rate FiO2 06/02/17 13:47 37.1 74 18 102/54 (70) 92 Room Air Physical Exam General Appearance: + obese Respiratory/Chest: Respiratory effort: no dyspnea, good air movement Cardiovascular: Heart Auscultation: RRR Abdomen: Bowel Sounds: pertinent finding (Scars) Assessment and Plan Hx polyps for colonoscopy
--- NOTE | 2017-06-02 14:34 | Discharge Instructions ---
Endoscopy Patient Instructions Date / Procedure(s) Performed Jun 02, 2017. Colonoscopy Allergy Information Coded Allergies: Coffee (Verified Allergy, Severe, TONGUE SWELLING,HIVES-COFFEE BEANS, 06/02) Magnesium Salicylate (Verified Adverse Reaction, Mild, migraines, 06/02/17) Discharge Date / Findings Jun 02, 2017. Normal colon Medication Instructions Stopped Medication(s): Glipizide last taken on 06/01/17 Metformin last taken on 05/30/17 81mg Aspirin last taken on 05/30/17 Restart Stopped Medication(s): resume meds Reported Home Medications Medications Dose Route/Sig Max Daily Dose Days Date Category Lamisil At Athletes Foot (Terbinafine Hcl (Topical)) 1 % Cre 1 Dose TOP DAILY 05/20/17 Reported Glucosamine Chondroitin (Ltzjcipvzcz-Nhyjgalniwp-Hsm C-) 1 Tab Tab 1 Tab PO TID 05/20/17 Reported Lipitor (Atorvastatin) 40 Mg Tab 40 Mg PO QAM 05/20/17 Reported Levothyroxine Sodium 125 Mcg Tab 1 Tab PO QAM 03/06/17 Reported Fluoxetine Hcl 60 Mg Tab 60 Mg PO QAM 09/03/16 Reported Femara (Letrozole) 2.5 Mg Tab 1 Tab PO AFTERNOON 09/03/16 Reported Vitamin D3 (Cholecalciferol) 2,000 Unit Cap 2 Cap PO QAM 07/11/16 Reported Pentoxifylline ER (Pentoxifylline) 400 Mg Tabcr 1 Tab PO TID 07/11/16 Reported Aspir-81 (Aspirin) 81 Mg Tab 1 Tab PO QAM 07/11/16 Reported Ditropan (Oxybutynin Chloride) 5 Mg Tab 10 Mg PO QAM 06/19/15 Reported Metformin HCl 500 Mg Tab 1,000 Mg PO BID 06/19/15 Reported Glipizide 5 Mg Tab 1 Tab PO QAM 06/19/15 Reported Invokana (Canagliflozin) 100 Mg Tab 1 Tab PO QAM 06/19/15 Reported Lisinopril 2.5 Mg Tab 2.5 Mg PO QAM 06/19/15 Reported Provider Instructions Activity Restrictions - No exercising or heavy lifting for 24 hours. - Do not drink alcohol the day of the procedure. - Do not drive a car or operate machinery until the day after the procedure. - Do not make any important decisions or sign important papers in 24 hours after the procedure. Following Day: - Return to full activity which may include returning to work/school. Diet Start your diet with liquids and light foods (jello, soup, juice, toast). Then eat your usual diet if not nauseated. Treatment For Common After Affects For mild abdominal pain, bloating, or excessive gas: - Rest - Eat lightly - Lie on right side Follow-Up Information Follow-up with Ruthy Mari as scheduled Anesthesia Information What You Should Know You have had a procedure that required some medicine to reduce anxiety and discomfort. This treatment is called moderate sedation. After receiving the treatment, you may be sleepy, but you will be able to breathe on your own. The effects of the treatment may last for several hours. Follow these instructions along with Activity/Diet recommendations noted above: * Do NOT do anything where dizziness or clumsiness would be dangerous. * Rest quietly at home today, then you can be up and about tomorrow. * Have a responsible person stay with you the rest of today. * You may have had an I.V. today. If so, you may take the dressing off later today. Recommendations Call your doctor if: * Trouble breathing * Continuous vomiting for more than 24 hours * Temperature above 101 degrees * Severe abdominal pain or bloating * Pain not relieved by pain medicine ordered * There is increased drainage or redness from any incision * A large amount of rectal bleeding greater than 2-3 tablespoons. (If you had a polyp/s removed or have hemorrhoids, a small amount of blood - from the rectum is to be expected.) * You have any unanswered questions or concerns. IN THE EVENT OF A SERIOUS EMERGENCY, GO TO THE NEAREST EMERGENCY ROOM Your discharge instructions were prepared by provider Bhaskar Rocha. Patient Instructions Signature Page Diana Scott Patient (or Guardian) Signature/Date: I have read and understand the instructions given to me by my caregivers. Caregiver/RN/Doctor Signature/Date: The above-named patient and/or guardian has received patient instructions on this date. + Original Patient Signature Page (only) stays with chart. Please make copy for patient.
--- NOTE | 2017-06-02 14:37 | GI REPORT ---
Procedure Date: 06/02/2017 2:11 PM Procedure: Colonoscopy Indications: Personal history of colonic polyps Medicines: Propofol total dose 260 mg IV, Lidocaine 40 mg IV Complications: No immediate complications. Estimated Blood Loss: Estimated blood loss: none. Procedure: Pre-Anesthesia Assessment: - Prior to the procedure, a History and Physical was performed, and patient medications, allergies and sensitivities were reviewed. The patient's tolerance of previous anesthesia was reviewed. - The risks and benefits of the procedure and the sedation options and risks were discussed with the patient. All questions were answered and informed consent was obtained. After I obtained informed consent, the scope was passed under direct vision. Throughout the procedure, the patient's blood pressure, pulse, and oxygen saturations were monitored continuously. The scope was introduced through the anus and advanced to the cecum, identified by appendiceal orifice and ileocecal valve. The colonoscopy was performed without difficulty. The patient tolerated the procedure well. The quality of the bowel preparation was good. Findings: The entire examined colon appeared normal. Impression: - The entire examined colon is normal. - No specimens collected. Recommendation: - Discharge patient to home (ambulatory). - Continue present medications. - Repeat colonoscopy in 5 years for surveillance. - Return to primary care physician PRN. Bhaskar Rocha M.D. Bhaskar Rocha MD 06/02/2017 2:36:51 PM This report has been signed electronically. Note Initiated On: 06/02/2017 2:11 PM I attest to the content of the Intraoperative Record and orders documented therein, exceptions below
--- NOTE | 2017-06-02 15:10 | Anesthesiology Progress Note ---
Anesthesia Post Op Note Date & Time Jun 02, 2017 at 15:10 Vital Signs Pain Intensity: 0 Vital Signs Past 12 Hours Date Time Temp Pulse Resp B/P (MAP) Pulse Ox O2 Delivery O2 Flow Rate FiO2 06/02/17 14:56 69 20 130/79 (96) 94 Room Air 06/02/17 14:41 72 20 109/50 (69) 93 Room Air 06/02/17 13:47 37.1 74 18 102/54 (70) 92 Room Air Notes Mental Status: alert / awake / arousable, participated in evaluation Pt Amnestic to Procedure: Yes Nausea / Vomiting: adequately controlled Pain: adequately controlled Airway Patency, RR, SpO2: stable & adequate BP & HR: stable & adequate Hydration State: stable & adequate Anesthetic Complications: no major complications apparent
[2017-06-02 15:11] VITALS: BP 141/85; PULSE 69; O2SAT 96
== END | disposition home or self-care (01) ==
LOC: C.GI 13:17
PROVIDERS: ATTEND Internal Medicine Gastroenterology
DX: Z86.010 Personal history of colon polyps (principal); Z80.0 Family history of malignant neoplasm of digestive organs; Z87.891 Personal history of nicotine dependence; Z85.3 Personal history of malignant neoplasm of breast; E07.9 Disorder of thyroid, unspecified

== ENCOUNTER → 2017-07-14 | Outpatient (CLI) | payer OTHER ==
[~2017-07-14] MED LIST changes: -LIDOCAINE HCL 2% 2 ML VIAL (20MG/ML) ONE; -PROPOFOL IV EMULSION 10 MG/ML 20 ML VIAL IV ONE
--- NOTE | 2017-07-14 14:48 | MAMMOGRAPHY REPORT ---
BILATERAL DIGITAL DIAGNOSTIC MAMMOGRAM TOMOSYNTHESIS WITH CAD AND TARGETED RIGHT ULTRASOUND: 8 CLINICAL HISTORY: 71-year-old woman with a personal history of right breast carcinoma status post lum pectomy and radiation therapy. She presents for close follow-up in the right breast and routine eval uation of the left breast one year after treatment. She also reports an abnormal sensation and possi ble lump in the right axilla. TECHNIQUE: Bilateral breast tomosynthesis in addition to standard 2D mammography was performed. Spot magnification right CC and ML views were also obtained. Current study was also evaluated with a CalA[employer] Aided Detection (CAD) system. COMPARISON: Comparison is made to exams dated: 12/20/2016 mammogram, 05/27/2016 mammogram, 05/27/2016 stereotactic biopsy, 05/06/2016 mammogram, 04/17/2016 mammogram, and 04/14/2015 mammogram - [facility]. BREAST COMPOSITION: There are scattered areas of fibroglandular density in both breasts. FINDINGS: There is expected architectural distortion and surgical clips in the lower outer middle one third of the right breast, at the site of prior lumpectomy. There is minimal persistent skin thicke eliel of the lower inner quadrant of the right breast, likely related to prior treatment. There are a re 2 stable punctate microcalcifications in the medial right breast, which appears similar dating moshe k to at least 2013, therefore likely benign. No new suspicious mass, asymmetry, architectural distor tion or suspicious calcifications are seen in the right breast. There is fluctuating nodularity in the medial left breast, most likely represented fluctuating cysts. The visualized circumscribed masses are decreased comparing to the 2015 mammograms. There are scat tered benign round and coarse calcifications throughout the remainder of the left breast. No new sofia picious spiculated or irregular mass, focal area of architectural distortion, asymmetry or suspicious calcifications are seen in the left breast. Targeted ultrasound was performed in the right axilla in the area of abnormal sensation pointed out b y the patient. Sonographically normal subcutaneous tissues are identified as well as a few morpholog ically normal lymph nodes. No focal skin thickening, drainable fluid collection, suspicious mass or suspicious lymphadenopathy identified. IMPRESSION: ACR-BI-RADS CATEGORY 3: PROBABLY BENIGN, TARGETED ULTRASOUND ACR-BI-RADS CATEGORY 3: PRO BABLY BENIGN 1. Stable expected posttreatment changes in the right breast, without definite mammographic evidence of malignancy. Another close follow-up right diagnostic tomosynthesis mammogram and possible ultras ound is recommended to ensure longer stability after treatment. 2. Fluctuating nodularity in the medial left breast, without mammographic evidence of malignancy in the left breast. Recommend routine screening in 1 year. 3. No targeted sonographic evidence of malignancy or suspicious lymphadenopathy identified in the ri ght axilla in the area of concern pointed out by the patient. Continued clinical monitoring is recom mended. These results and recommendations were discussed with the patient at the time of the exam. Approximately 10% of breast cancers are not detected with mammography. A negative mammographic report should not delay biopsy if a clinically suggestive mass is present. Solange Perez M.D. ay/:07/14/2017 14:32:17 Correspondence Dictator: Millie MCBRIDE (R)), [facility] letter sent: Follow Up Recommended 3 BI-RADS Code: ACR-BI-RADS Category 3: Probably Benign Ultrasound BI-RADS: ACR-BI-RADS Category 3: Pr obably Benign
== END ==
LOC: C.MAMM 13:48
PROVIDERS: ATTEND Physician Assistant Medical
DX: Z09 Encounter for follow-up examination after completed treatment for conditions other than malignant neoplasm (principal); Z85.3 Personal history of malignant neoplasm of breast

== ENCOUNTER → 2017-09-25 | Outpatient (CLI) | payer OTHER ==
--- NOTE | 2017-09-25 09:07 | DIAGNOSTIC IMAGING REPORT ---
ULTRASOUND ABDOMEN COMPLETE CLINICAL HISTORY: Generalized abdominal pain. COMPARISON STUDY: Abdominal CT dated 11/21/2011. TECHNIQUE: Real-time, grayscale, and color flow sonography of the abdomen was performed. Images are reviewed in the transverse and longitudinal planes. FINDINGS: Liver: The liver appears mildly enlarged and demonstrates heterogeneously increased echotexture consistent with hepatic steatosis. There is no intrahepatic biliary ductal dilatation. The main portal vein is patent. Gallbladder: The gallbladder is normal in appearance. No gallstones are identified. There is no gallbladder wall thickening or pericholecystic fluid. A sonographic Gonzalez's sign is reportedly absent. The common bile duct measures up to 0.4 cm in diameter. Pancreas: Visualized portions of the pancreatic head and body are normal in appearance. Spleen: The spleen is normal in size and echotexture, measuring 10.3 cm in length. Kidneys: The kidneys demonstrate mild cortical atrophy. There is no hydronephrosis. The right kidney measures 11.8 cm in length and the left kidney measures 12.2 cm in length. No shadowing calculi are identified. Abdominal vasculature: Visualized portions of the abdominal aorta and IVC are normal as imaged. Ascites: None. IMPRESSION: 1. No acute sonographic abnormality is identified. No gallstones are seen. 2. Hepatomegaly and hepatic steatosis. Electronically signed by: Moe Martinez M.D. 09/25/2017 9:05 AM Dictated Date/Time: 09/25/2017 9:03 AM
== END | disposition home or self-care (01) ==
LOC: C.ULTRBC 08:20
PROVIDERS: ATTEND Family Medicine
DX: R10.11 Right upper quadrant pain (principal); R16.0 Hepatomegaly, not elsewhere classified; K76.0 Fatty (change of) liver, not elsewhere classified

== ENCOUNTER → 2017-10-09 | Outpatient (CLI) | payer OTHER ==
[~2017-10-09] MED LIST changes: +LISI-1116 PO; -LISI2.5T5 PO; +SINCALIDE INJ 1.9 MCG in SODIUM CHLORIDE 0.9% 100ML 100 ML IV ONE
--- NOTE | 2017-10-09 12:59 | DIAGNOSTIC IMAGING REPORT ---
NUCLEAR MEDICINE HEPATOBILIARY SCAN WITH GALLBLADDER EJECTION FRACTION CLINICAL HISTORY: Generalized abdominal pain. COMPARISON: Abdominal ultrasound September 26, 2007 13. TECHNIQUE: 5.4 mCi of technetium 99m Choletec IV was injected at 10:30 AM on October 09, 2017. Immediately following injection, imaging of the abdomen was carried out for 60 minutes in the anterior projection. At this time, 1.9 mcg of Sincalide was injected IV as per protocol. Imaging was performed for an additional 45 minutes to estimate a gallbladder ejection fraction. FINDINGS: Hepatic uptake of radiotracer is prompt and homogeneous. Activity is identified within the gallbladder, common bile duct and small bowel at 10 minutes. Following injection of sincalide, normal gallbladder emptying was noted within ejection fraction of 44%. Normal screening in 30-35%. IMPRESSION: 1. Normal hepatobiliary scan. No evidence for acute or chronic cholecystitis. 2. Normal gallbladder ejection fraction of 44%. Electronically signed by: Ismael Darling M.D. 10/09/2017 12:58 PM Dictated Date/Time: 10/09/2017 12:57 PM
== END | disposition home or self-care (01) ==
LOC: C.NUCL 10:08
PROVIDERS: ATTEND Family Medicine
DX: R10.84 Generalized abdominal pain (principal)

== ENCOUNTER → 2018-01-14 | Outpatient (CLI) | payer OTHER ==
[~2018-01-14] MED LIST changes: -SINCALIDE INJ 1.9 MCG in SODIUM CHLORIDE 0.9% 100ML 100 ML IV ONE
--- NOTE | 2018-01-15 08:09 | MAMMOGRAPHY REPORT ---
UNILATERAL RIGHT DIGITAL DIAGNOSTIC MAMMOGRAM TOMOSYNTHESIS WITH CAD AND RIGHT ULTRASOUND: 01/14/2018 CLINICAL HISTORY: 72-year-old woman with a personal history of right breast cancer status post breast conservation treatment presents for continued close follow-up imaging of the right breast. TECHNIQUE: Right breast CC and MLO 2D and tomosynthesis images, spot magnification right CC and ML; s pot compression right CC and exaggerated lateral tomosynthesis right CC views were obtained. The cur rent study was also evaluated with the use of computer aided detection. COMPARISON: Comparison is made to exams dated: 07/14/2017 mammogram, 12/20/2016 mammogram, 05/27/2016 mammogram, 05/06/2016 mammogram, 04/17/2016 mammogram, and 04/14/2015 mammogram - [facility]. BREAST COMPOSITION: The tissue of right breast is heterogeneously dense, which may obscure small mass es. FINDINGS: There are stable postsurgical changes in the central right breast at the site of prior lump ectomy, with surgical clips remaining in place. There are a few scattered benign-appearing calcifica tions in the medial and retroareolar right breast that are stable comparing to remote prior mammogram s, therefore considered benign. There is a 4.4 mm nodular asymmetry in the lateral, posterior right breast seen on the CC 2D and tomosynthesis images that could represent scar tissue or normal overlapp ing tissue and additional spot compression CC tomosynthesis and exaggerated lateral CC tomosynthesis images were obtained. The supplemental tomosynthesis images demonstrate partial effacement of the 4.4 mm nodular asymmetry in the lateral, posterior right breast. Further evaluation with ultrasound was performed. Targeted ultrasound was performed in the lateral right breast with particular attention to the 6:00 a nd 7:00 axes. There is visible diagonally oriented skin surgical scar in this location, suggesting t he asymmetry may simply represent scar tissue. No suspicious sonographic mass was identified. Howev er, given the personal history of right breast cancer and dense breasts as well as far posterior loca tion of this asymmetry, further characterization with a bilateral breast MRI is recommended. IMPRESSION: ACR BI-RADS CATEGORY 0: INCOMPLETE EVALUATION: NEED ADDITIONAL IMAGING EVALUATION, ULTRAS OUND ACR BI-RADS CATEGORY 0: INCOMPLETE EVALUATION: NEED ADDITIONAL IMAGING EVALUATION 1. A contrast-enhanced bilateral breast MRI is recommended for additional surveillance and also for an effacing asymmetry in the far posterior, lateral right breast which may simply represent scar tiss ue or normal overlapping fibroglandular tissue given that additional tomosynthesis views and ultrasou nd obtained during this diagnostic workup did not reveal any suspicious abnormality. Nevertheless, b ilateral breast MRI is recommended. 2. Also recommend bilateral diagnostic mammography and possible ultrasound in 6 months to ensure 2 y ears of stability after treatment. These results and recommendations were discussed with the patient at the time of the exam. Approximately 10% of breast cancers are not detected with mammography. A negative mammographic report should not delay biopsy if a clinically suggestive mass is present. Solange Perez M.D. ay/:01/14/2018 15:22:35 Intelligence Agent: RT Kimberly(Alphonse)(M), [facility]; Fátima Quintero [facility] letter sent: Addl Imaging 0 OVERALL STUDY BIRADS: 0 Indeterminate
== END | disposition home or self-care (01) ==
LOC: C.MAMM 13:33
PROVIDERS: ATTEND Family Medicine
DX: R92.8 Other abnormal and inconclusive findings on diagnostic imaging of breast (principal); Z85.3 Personal history of malignant neoplasm of breast; Z08 Encounter for follow-up examination after completed treatment for malignant neoplasm

== ENCOUNTER → 2018-01-28 | Outpatient (CLI) | payer OTHER ==
[~2018-01-28] MED LIST changes: +GADAVIST IV PRN
--- NOTE | 2018-01-29 14:57 | MAMMOGRAPHY REPORT ---
BREAST MRI OF BOTH BREASTS: 01/28/2018 CLINICAL HISTORY: History of right breast cancer status post right lumpectomy. The patient presents f or additional surveillance and evaluate an asymmetry seen within the right lateral posterior breast o n recent diagnostic mammograms. COMPARISON: Comparison is made to exams dated: 01/14/2018 mammogram, 01/14/2018 ultrasound, 07/14/2017 ultrasound, 07/14/2017 mammogram, 12/20/2016 mammogram, and 05/27/2016 mammogram - [facility]. Technique: The patient was placed prone in a dedicated breast imaging coil. Precontrast axial T1-angeles ghted, axial T2-weighted fat saturation, and axial T1-weighted fat saturation images were obtained. After the administration of 9.5 mL of Gadavist IV contrast, sequential T1-weighted fat saturation meena ges were obtained. Subtraction images were obtained of the dynamic contrast enhanced sequences, and 3-D reformations were performed. The [email or web address] software was used for kinetic analysis. Findings: Right breast: There is mild background parenchymal enhancement involving the right breast. There are expected postsurgical changes in the right lateral breast from prior lumpectomy. There are no suspi cious enhancing masses or areas of abnormal non-mass enhancement within the right breast. Specifical ly, there are no suspicious enhancing masses in the region of the asymmetry seen within the right lat eral posterior breast on the recent diagnostic mammograms. Left breast: There is mild background parenchymal enhancement involving the left breast. A few round circumscribed subcentimeter T2 hyperintense, rim-enhancing masses are seen within the left breast, c onsistent with benign cysts. There is an ovoid enhancing 4 mm focus with circumscribed margins in th e left subareolar breast, which demonstrates a benign type persistent kinetic pattern (series [id number] i [id number]) and is probably benign. The remainder of the left breast demonstrates no suspicious enhanci ng masses or areas of abnormal murmurs enhancement. There is no evidence of axillary adenopathy. Visualized extramammary soft tissues are grossly unrema rkable. IMPRESSION: ACR-BI-RADS CATEGORY 3: PROBABLY BENIGN 1. Expected posttreatment changes in the right breast, without MRI evidence of malignancy in the rig ht breast. No corresponding suspicious abnormality seen within the right lateral posterior breast in the region of the mammographic asymmetry; given the lack of a corresponding MRI abnormality, the asy mmetry is probably benign and likely represents normal fibroglandular tissue. This can be reassessed at the time of bilateral diagnostic mammograms which are due June 2018. 2. Ovoid enhancing 4 mm focus in the left subareolar breast, which demonstrates a benign type persis tent kinetic pattern and is probably benign. Recommend follow-up bilateral breast MRI in 6 months to reevaluate, given no prior MRIs to document stability. The patient will receive written notification of the results. Samara Holden M.D. ah/:01/28/2018 16:26:47 Adoption Manager: diamond powder mixer, [facility] letter sent: Follow Up Recommended 3 BI-RADS Code: ACR-BI-RADS Category 3: Probably Benign
== END | disposition home or self-care (01) ==
LOC: C.MRI 11:29
PROVIDERS: ATTEND Family Medicine
DX: R92.8 Other abnormal and inconclusive findings on diagnostic imaging of breast (principal)

== ENCOUNTER 2019-12-07 17:09 | Inpatient (IN) ==
--- NOTE | 2019-12-07 17:17 | Emergency Department Note ---
Impression & Plan Brain TIA, Dehydration ED Provider Note NAME: NASRA MANNING AGE: 74 SEX: F : 1945 ARRIVES VIA: Ambulance INFORMANT: Patient, ED PROVIDER(S): Sudheer Gold MD Chief Complaint: Syncope, fall HPI: Patient does present status post fall. The patient is unsure as really not she truly passed out. Jzuca-wa-pgmx glucose prior to arrival was 136. Patient states that she dropped a mouse and then bent over to try and get it in which point she fell over. The patient at this time felt as though she had some di fficulty with expressive speech as well as some right arm numbness. Patient denies any history of seizures. The patient states that her speech is improved. Patient states this started around 330 and lasted about 30 minutes. Patient states as though she felt as though she was can have a migraine aura but that it went away. Patient currently denies any headache. The patient did have associated nausea with vomiting and still has nausea. The patient denies any recent head trauma. Patient denies any visual difficulties. Patient denies current sensory deficits. ROS: See HPI for pertinent positives and negatives. A total of 10 systems were reviewed and otherwise negative. Past medical history: See below Surgical history: See below Social history: See below Physical Exam: GENERAL: NAD, non-toxic. Wearing a mask. EYE EXAM: Normal conjunctiva. PERRL, no anisocoria and EOM's grossly intact w/o pain. NECK: Supple, no nuchal rigidity, no adenopathy, non-tender. No signs of meningismus. LUNGS: Clear to auscultation. Normal chest wall mechanics. HEART: NSR, no MRG. ABDOMEN: Abdomen soft, non-tender, normo-active bowel sounds, no masses, no rebound or guarding. BACK: No CVA TTP. SKIN: No rashes and no bruising. UPPER EXTREMITIES: Upper extremities are grossly normal. LOWER EXTREMITIES: Grossly normal, no edema. NEURO EXAM: A&O x3, cranial nerves II-XII grossly intact, normal speech, moves all 4 extremities on command w/o issue. Slight difficulty with uflqyo-ur-yvcb, no drift, no sensory deficits. Differential diagnoses: Infection, dehydration, metabolic abnormality, hyp o/hyperglycemia, electrolyte disturbance, anemia, hypoxia, cardiac sources, intracerebral event, toxicologic, neurologic, as well as other pathologies. Course: Patient was seen and evaluated the bedside. Full history physical exam was performed. EKG: Indication: Fall Normal sinus rhythm, rate of 94, normal intervals, left axis deviation, no acute ST S elevations. Imaging Studies: Radiology results as stated below per my review in the radiologist's interpretation: XR chest 1V portable HISTORY: weakness COMPARISON: Chest 10 03/05/2006. FINDINGS: Patchy left basilar densities. The heart is mildly enlarged. There are low lung volumes. No evidence for pulmonary edema. No pleural effusions. No pneumothorax. IMPRESSION: Patchy left basilar densities. This may represent atelectasis or pneumonia. ACT 112: Negative or not required by law. Electronically signed by: Anant Adam M.D. 12/07/2019 6:05 PM Dictated: 12/07/191801 Transcribed: 12/07/191801 HEAD CT NONCONTRAST CT DOSE: 614.27 mGy.cm HISTORY: expressive aphasia TECHNIQUE: Multiaxial CT images of the head were performed without the use of intravenous contrast. Automated exposure control was utilized for this study. A dose lowering technique was utilized adhering to the principles of ALARA. Comparison: None. Findings: The paranasal sinuses and mastoid air cells are clear. The calvarium and skull base are intact. There is no mass, hematoma, midline shift, acute infarct. White matter hypodensity is nonspecific but suggestive of microvascular ischemic change. The ventricles and sulci demonstrate mild age-related involutional changes. 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 Impression: No acute intracranial abnormality. Atrophy and microvascular ischemic changes. ACT 112: Negative or not required by law. Electronically signed by: Anant Adam M.D. 12/07/2019 6:33 PM Dictated: 12/07/191827 Transcribed: 12/07/191827 Cardiac monitoring: An order was placed for continuous cardiac monitoring. The monitor shows a rate of 93 with sinus rhythm. MDM: Patient is present with concern for fall as well as TIA type symptoms. Blood work was obtained. BSG prior to arrival was normal. The patient is awake alert oriented follows commands slight difficulty with xuawmx-cy-zkzv but otherwise no obvious focal findings currently. The patient speech is appropriate. Patient did have CT of the head was given IV fluids and antiemetics. Patient denies any headache or abdominal pain. Patient has mild white count of 15. They are calling patchy atelectatic versus pneumonia on the chest x-ray. The patient has not complained of any infectious symptoms and I believe this is more to be atelectatic. Patient does have some mildly elevated BUN to creatinine ratio consistent with prerenal azotemia. Patient CT just shows chronic changes but nothing acute. The patient was ordered a full dose aspirin. I did speak the on-call hospitalist Dr. Mixon. The patient was admitted to the [facility] medicine service. 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 Status post completion of radiation therapy 08/02/2016 received 3850 cGy utilizing accelerated partial breast treatment" Breast cancer RIGHT-05/2016 Hyperlipidemia Hypertension Migraine HX Peripheral artery disease (Chronic) Thyroid nodule RADIATION TX Type 2 diabetes mellitus (Chronic) Surgical History History of cataract surgery R/L History of colonoscopy X MULTIPLE Hx of lumpectomy 2015 WITH NODE EXCISION-RADIATION/NO CHEMO Family History Mother Family hx of colon cancer Other Cancer Diabetes Lung disease Social History Preferred Language: Iraqi Communication Ability: Effective 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 Beliefs That Will Affect Care: None Current Living Situation: Alone Other Information That Helps Us Care for You: No Feels Safe at Home: Yes Safety Concerns: Feels Safe At This Time Smoking Status: Never smoker Do You Dip or Chew Tobacco: No ; Second Hand Exposure: No ; Tobacco Cessation Education Requested by Patient: No Hx Alcohol Use: No Hx Substance Use: No Allergies Allergies Allergy/AdvReac Type Severity Reaction Status Date / Time coffee (Coffea arabica) Allergy Severe TONGUE Verified 12/07/19 18:43 SWELLING,HIVES-COFFEE BEANS magnesium salicylate AdvReac Mild migraines-M Verified 12/07/19 18:43 SG lactose AdvReac Unknown INTOLERANT Verified 12/07/19 18:43 WITH MILK PRODUCTS Home Meds Home Medications Medication Instructions Recorded Confirmed aspirin 81 mg PO QAM 07/24/18 12/07/19 atorvastatin 40 mg PO QAM 07/24/18 12/07/19 cholecalciferol (vitamin D3) 4,000 unit PO QAM 07/24/18 12/07/19 fluoxetine 60 mg PO QAM 07/24/18 12/07/19 glipizide 2.5 mg PO QAM 07/24/18 12/07/19 letrozole 2.5 mg PO QAM 07/24/18 12/07/19 levothyroxine 150 mcg PO QAM 07/24/18 12/07/19 lisinopril 2.5 mg PO QAM 07/24/18 12/07/19 metformin 1,000 mg PO 07/24/18 12/07/19 oxybutynin chloride 10 mg PO QAM 07/24/18 12/07/19 pentoxifylline 1 tab PO BID 07/24/18 12/07/19 empagliflozin 10 mg tablet 10 mg PO QAM 03/09/19 12/07/19 Probiotic 3,000 mmu cells PO QAM 07/30/19 12/07/19 cholecalciferol (vitamin D3) 25 mcg PO QPM 07/30/19 12/07/19 [Vitamin D3] cyanocobalamin (vitamin B-12) 1,000 mcg PO 07/30/19 12/07/19 ibuprofen [Motrin IB] 600 mg PO Q6H PRN 07/30/19 12/07/19 tramadol 50 mg PO BID 12/07/19 12/07/19 Results & Data (ED) Vital Signs Vital Signs - 24 hr 12/07/19 17:17 12/07/19 17:30 12/07/19 17:32 Temperature 37.3 C Temperature Source Oral Pulse Rate 93 H 94 H 85 Pulse Rate from SpO2 Sensor 94 H 84 Pulse Rhythm Regular Pulse Strength Normal Respiratory Rate 18 21 20 Respiratory Effort / Characteristics Non-Labored Spontaneous Respiratory Depth Normal Respiratory Pattern Regular Blood Pressure 117/74 118/65 Blood Pressure Mean 88 95 Blood Pressure Position Lying Pulse Oximetry 97 94 94 Oxygen Delivery Method Room Air Room Air Room Air Sepsis Recent Fever Within 48 Hours No Sepsis New/Unexplained Change in Mental Status No Sepsis Action Taken by Nursing No Action Required 12/07/19 17:34 12/07/19 18:08 12/07/19 18:10 Temperature Temperature Source Pulse Rate 74 73 Pulse Rate from SpO2 Sensor 74 Pulse Rhythm Pulse Strength Respiratory Rate 17 15 Respiratory Effort / Characteristics Respiratory Depth Respiratory Pattern Blood Pressure 132/55 L Blood Pressure Mean 77 Blood Pressure Position Pulse Oximetry 97 97 Oxygen Delivery Method Room Air Room Air Sepsis Recent Fever Within 48 Hours Sepsis New/Unexplained Change in Mental Status Sepsis Action Taken by Nursing 12/07/19 18:30 12/07/19 18:54 12/07/19 19:00 Temperature Temperature Source Pulse Rate 75 73 78 Pulse Rate from SpO2 Sensor 75 73 79 Pulse Rhythm Pulse Strength Respiratory Rate 18 17 29 H Respiratory Effort / Characteristics Respiratory Depth Respiratory Pattern Blood Pressure 138/84 147/66 H Blood Pressure Mean 104 76 Blood Pressure Position Pulse Oximetry 98 95 96 Oxygen Delivery Method Room Air Room Air Room Air Sepsis Recent Fever Within 48 Hours Sepsis New/Unexplained Change in Mental Status Sepsis Action Taken by Nursing 12/07/19 19:30 12/07/19 19:31 12/07/19 19:32 Temperature Temperature Source Pulse Rate 74 73 72 Pulse Rate from SpO2 Sensor 74 73 73 Pulse Rhythm Pulse Strength Respiratory Rate 20 20 20 Respiratory Effort / Characteristics Respiratory Depth Respiratory Pattern Blood Pressure 121/64 Blood Pressure Mean 81 Blood Pressure Position Pulse Oximetry 96 96 Oxygen Delivery Method Room Air Room Air Sepsis Recent Fever Within 48 Hours Sepsis New/Unexplained Change in Mental Status Sepsis Action Taken by Nursing 12/07/19 20:00 12/07/19 20:01 12/07/19 20:30 Temperature Temperature Source Pulse Rate 77 75 73 Pulse Rate from SpO2 Sensor 74 74 Pulse Rhythm Pulse Strength Respiratory Rate 21 21 Respiratory Effort / Characteristics Respiratory Depth Respiratory Pattern Blood Pressure 125/75 124/73 Blood Pressure Mean 119 92 Blood Pressure Position Pulse Oximetry 95 93 Oxygen Delivery Method Room Air Room Air Sepsis Recent Fever Within 48 Hours Sepsis New/Unexplained Change in Mental Status Sepsis Action Taken by Nursing 12/07/19 20:31 Temperature Temperature Source Pulse Rate 73 Pulse Rate from SpO2 Sensor 73 Pulse Rhythm Pulse Strength Respiratory Rate Respiratory Effort / Characteristics Respiratory Depth Respiratory Pattern Blood Pressure Blood Pressure Mean Blood Pressure Position Pulse Oximetry 94 Oxygen Delivery Method Room Air Sepsis Recent Fever Within 48 Hours Sepsis New/Unexplained Change in Mental Status Sepsis Action Taken by Longterm Medications Current Medication List: was personally reviewed by me Laboratory Data Attestation: I reviewed the patient's lab results. Result diagrams: 12/07/19 17:42 12/07/19 17:42 Lab Results 12/07/19 12/07/19 Range/Units 17:42 17:42 WBC 15.25 H (4.8-10.8) K/uL RBC 4.62 (4.2-5.4) M/uL Hgb 14.6 (12.0-16.0) g/dL Hct 43.5 (37-47) % MCV 94.2 (80-100) fL MCH 31.6 (25-34) pg MCHC 33.6 (32-36) g/dL RDW Std Deviation 41.8 (36.4-46.3) fL RDW Coeff of Slim 12.3 (11.5-14.5) % Plt Count 301 (130-400) K/uL MPV 10.2 (7.4-10.4) fL Immature Gran % (Auto) 0.2 % Neut % (Auto) 85.9 % Lymph % (Auto) 8.1 % [place]oula % (Auto) 5.0 % Eos % (Auto) 0.7 % Baso % (Auto) 0.1 % Immature Gran # (Auto) 0.03 H (0.00-0.02) K/uL Neut # (Auto) 13.11 H (1.4-6.5) K/uL Lymph # (Auto) 1.23 (1.2-3.4) K/uL [place] # (Auto) 0.76 H (0.11-0.59) K/uL Eos # (Auto) 0.10 (0-0.5) K/uL Baso # (Auto) 0.02 (0-0.2) K/uL Sodium 136 (136-145) mmol/L Potassium 4.5 (3.5-5.1) mmol/L Chloride 106 (98-107) mmol/L Carbon Dioxide 20 L (21-32) mmol/L Anion Gap 10.0 (3-11) BUN 27 H (7-18) mg/dl Creatinine 1.19 (0.6-1.2) mg/dl Est Cr Clr Drug Dosing 49.9 ml/min Est GFR ( Amer) 52.4 Est GFR (Non-Af Amer) 45.3 BUN/Creatinine Ratio 22.5 H (10-20) Glucose 145 H (70-99) mg/dl Calcium 9.5 (8.5-10.1) mg/dl Magnesium 2.0 (1.8-2.4) mg/dl Total Bilirubin 0.9 (0.2-1) mg/dl AST 15 (15-37) U/L ALT 28 (12-78) U/L Alkaline Phosphatase 131 H (45-117) U/L Troponin I < 0.015 (0-0.045) ng/ml Total Protein 7.9 (6.4-8.2) gm/dl Albumin 3.8 (3.4-5.0) gm/dl Globulin 4.1 H (2.5-4.0) gm/dl Albumin/Globulin Ratio 0.9 (0.9-2) TSH 0.371 (0.300-4.500) uIu/ml Administered Medications Gadobutrol (Gadavist 65ml) 9 ml IV ONCE PRN PRN Reason: Interaction Checking Stop: 12/11/19 23:23 Last Admin: 12/07/19 23:24 Dose: 9 ml Documented by: [id number] Ioversol (Optiray 320 125ml) 120 ml IV ONCE PRN PRN Reason: Interaction Checking Stop: 12/11/19 22:36 Last Admin: 12/07/19 22:37 Dose: 120 ml Documented by: [id number] Discontinued Medications Aspirin (Aspirin) 324 mg PO NOW STA Stop: 12/07/19 19:22 Last Admin: 12/07/19 20:00 Dose: 324 mg Documented by: [id number] Sodium Chloride (Nss 1000ml) 1,000 mls @ 999 mls/hr IV .Q1H1M ELISHA Stop: 12/07/19 18:30 Last Infusion: 12/07/19 18:43 Dose: 0 mls/hr Documented by: [id number] Admin: 12/07/19 17:42 Dose: 999 mls/hr Documented by: [id number] Ondansetron HCl (Zofran) 4 mg IV NOW STA Stop: 12/07/19 17:27 Last Admin: 12/07/19 17:42 Dose: 4 mg Documented by: [id number] Discharge Plan Visit Data *Final* Discharge Date/Time: 12/07/19 21:15 Chief Complaint: Syncope Stated Complaint: SYNCOPE ED Provider: Sudheer Gold Discharge Problem: Brain TIA, Dehydration Patient Disposition: Admitted As Inpatient Discharge Instructions Interventions: ED Discharge Assessment Last Done: 12/07/19 21:15
[2019-12-07] MEDS ORDERED: ONDANSETRON INJ 2 MG/ML 2 ML VIAL IV STA (17:26)
[2019-12-07] MEDS ORDERED: SODIUM CHLORIDE 0.9% 1000ML 1,000 ML IV SCH (17:30)
[2019-12-07 18:01] LABS: Basophils # (auto) 0.02 K/uL (0-0.2); Basophils % (auto) 0.1 %; Eosinophils % (auto) 0.7 %; Hematocrit (blood only) 43.5 % (37-47); Hemoglobin 14.6 g/dL (12.0-16.0); Immature Granulocytes # (auto) 0.03 K/uL (0.00-0.02); Immature Granulocytes % (auto) 0.2 %; Lymphocytes # (auto) 1.23 K/uL (1.2-3.4); Lymphocytes % (auto) 8.1 %; Mean Corpuscular Hemoglobin 31.6 pg (25-34); Mean Corpuscular Hgb Conc 33.6 g/dL (32-36); Mean Corpuscular Volume 94.2 fL (80-100); Mean Platelet Volume 10.2 fL (7.4-10.4); Monocytes # (auto) 0.76 K/uL (0.11-0.59); Neutrophils # (auto) 13.11 K/uL (1.4-6.5); Neutrophils % (auto) 85.9 %; Platelet Count 301 K/uL (130-400); RDW Coefficient of Variation 12.3 % (11.5-14.5); RDW Standard Deviation 41.8 fL (36.4-46.3); Red Blood Count 4.62 M/uL (4.2-5.4); White Blood Count 15.25 K/uL (4.8-10.8)
--- NOTE | 2019-12-07 18:06 | XRay Report ---
XR chest 1V portable HISTORY: weakness COMPARISON: Chest 10 03/05/2006. FINDINGS: Patchy left basilar densities. The heart is mildly enlarged. There are low lung volumes. No evidence for pulmonary edema. No pleural effusions. No pneumothorax. IMPRESSION: Patchy left basilar densities. This may represent atelectasis or pneumonia. ACT 112: Negative or not required by law. Electronically signed by: Anant Adam M.D. 12/07/2019 6:05 PM
[2019-12-07 18:27] LABS: Alanine Aminotransferase 28 U/L (12-78); Albumin Level 3.8 gm/dl (3.4-5.0); Aspartate Aminotransferase 15 U/L (15-37); BUN Creatinine Ratio 22.5 (10-20); Blood Urea Nitrogen 27 mg/dl (7-18); Calcium 9.5 mg/dl (8.5-10.1); Carbon Dioxide 20 mmol/L (21-32); Chloride 106 mmol/L (98-107); Creatinine Clr Calc Pharmacy 49.9 ml/min; Est GFR (African American) 52.4; Est GFR (Non-African American) 45.3; Glucose 145 mg/dl (70-99); Potassium 4.5 mmol/L (3.5-5.1); Sodium 136 mmol/L (136-145)
--- NOTE | 2019-12-07 18:35 | CT Scan Report ---
HEAD CT NONCONTRAST CT DOSE: 614.27 mGy.cm HISTORY: expressive aphasia TECHNIQUE: Multiaxial CT images of the head were performed without the use of intravenous contrast. A utomated exposure control was utilized for this study. A dose lowering technique was utilized adheri ng to the principles of ALARA. Comparison: None. Findings: The paranasal sinuses and mastoid air cells are clear. The calvarium and skull base are int act. There is no mass, hematoma, midline shift, acute infarct. White matter hypodensity is nonspecifi c but suggestive of microvascular ischemic change. The ventricles and sulci demonstrate mild age-rela manuel involutional changes. 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 Impression: No acute intracranial abnormality. Atrophy and microvascular ischemic changes. ACT 112: Negative or not required by law. Electronically signed by: Anant Adam M.D. 12/07/2019 6:33 PM
[2019-12-07 18:38] LABS: Albumin Globulin Ratio 0.9 (0.9-2); Alkaline Phosphatase 131 U/L (45-117); Bilirubin,Total 0.9 mg/dl (0.2-1); Globulin 4.1 gm/dl (2.5-4.0); Thyroid Stimulating Hormone 0.371 uIu/ml (0.300-4.500); Total Protein 7.9 gm/dl (6.4-8.2); Troponin I < 0.015 ng/ml (0-0.045)
[2019-12-07] MEDS ORDERED: ASPIRIN CHEW 324 MG PO STA (19:21)
--- NOTE | 2019-12-07 21:11 | History & Physical Report ---
Date of Service December 07, 2019 Assessment & Plan (1) Fall: Mrs. Scott is a 74 yo F with a PMHx of well-controlled type 2 diabetes mellitus, peripheral arterial disease and breast cancer s/p lumpectomy and radiation, currently on aromatase inhibitor therapy who presented to the ED for evaluation of a fall and subsequent neurological symptoms concerning for stoke/TIA. Patient presented to ED outside of TPA window. - fall was not mechanical; history of prodrome suggests vaso-vagal syncope - unclear as to whether patient lost consciousness - not on a blood thinner - head CT on admission showing no active process (2) Right upper extremity numbness: - clumsiness appreciated on physical exam - reduced speed of rapid alternative movements on R relative to L - co-existent expressive aphasia is concerning for occlusive vascular disease - patient has multiple vascular risk factors including diabetes, PAD, aromatase inhibitor use, 20 pack year smoking history - will pursue stroke/TIA work up, including brain MRI, CTA head and neck, TTE, cardiac monitoring, HbA1c, fasting lipid panel - neuro consult placed (3) Type 2 diabetes mellitus: - per patient A1c from two weeks ago 7.4; at goal for age - home regimen consists of Metformin, Glipizide and empagliflozin - will hold oral anti-glycemics while in hospital - 9 units of basal insulin BID; NovoLog with correction factor of 40 and carb ratio of 15 - HbA1c and fasting lipid panel as part of stroke work up - patient is on high intensity statin, daily ASA and PRIMITIVO inhibitor. - continue the above while in hospital (4) Peripheral artery disease: - patient already on high intensity statin, daily baby ASA and pentoxifylline - continue all of the above while in hospital (5) Breast cancer: - hx of ER+, [place] +, DCIS in 2005 - status post lumpectomy and radiation therapy - on daily Aromatase Inhibitor therapy - continue the above while in hospital (6) Hypothyroid: - currently on replacement with levothyroxine 150 mcg - TSH 0.3 on admission Dispo: Tele Diet: NPO until bedside swallow DVT: lovenox Code: full History of Present Illness Primary Care Provider: NO PCP Mrs. Scott is a 74 yo F with a PMHx of type II diabetes mellitus, peripheral arterial disease, and a history of breast cancer, currently on an Aromatase inhibitor, who presented to the ED after falling from a seated position while at home today at 3:30 pm. She dropped her mouse while working on the computer, and when she bent over to pick it up, she realized she had fallen to the floor. When asked if she experienced a prodrome, she ambivalently endorses a feeling of lightheadedness. She does not believe she lost consciousness, although this event was unwitnessed. When she got herself up, she realized her R forearm was numb. Denies associated R arm weakness, but provides a description of R hand clumsiness. She phoned a friend for assistance after falling and reports her "words came out jumbled," when making the phone call. Her friend contacted her PCP, who sent an ambulance directly to Mrs. Scott's home. On the ride to the hospital, her blood glucose was recorded at 136. She reports that her expressive aphasia has persisted on arrival to the hospital, as she was unable to clearly state her PCP's name to ED staff even though she knew the answer. She also reports intermittent R hand clumsiness since arrival. While in the ED she became nauseous and vomited x2. Mrs. Shaffer diabetes seems to be well-controlled. She reports an A1c of 7.4 drawn two weeks ago. She manages it with Glipizide, Metformin and empagliflozin. Additional vascular risk factors include history a 20 pack year history of cigarette smoking, although she quit in 2011. No personal history of seizure disorder. Remote history of migraine headaches with aura, although none in past years. Prior to this episode, Mrs. Scott had been in her usual state of health, denies fever/chills, cough, SOB, general malaise. ED course: Non-contrast Head CT on admission showing no acute process. WBC elevated to 15 with neutrophil predominance; CBC otherwise normal. CMP WNL. Blood glucose at 145. CXR showing a patchy left basilar infiltrate. Patient was bolused with 1 liter of normal saline and given chewable Aspirin 324mg. She was placed on harvest worker field crop. Allergies Allergy/AdvReac Type Severity Reaction Status Date / Time coffee (Coffea arabica) Allergy Severe TONGUE Verified 12/07/19 18:43 SWELLING,HIVES-COFFEE BEANS No Known Drug Allergies Allergy Unknown Verified 12/08/19 12:01 magnesium salicylate AdvReac Mild migraines-M Verified 12/07/19 18:43 SG lactose AdvReac Unknown INTOLERANT Verified 12/07/19 18:43 WITH MILK PRODUCTS Home Medications Home Medications Medication Instructions Recorded Confirmed Type aspirin 81 mg PO QAM 07/24/18 12/07/19 History atorvastatin 40 mg PO QAM 07/24/18 12/07/19 History cholecalciferol (vitamin D3) 4,000 unit PO QAM 07/24/18 12/07/19 History fluoxetine 60 mg PO QAM 07/24/18 12/07/19 History glipizide 2.5 mg PO QAM 07/24/18 12/07/19 History letrozole 2.5 mg PO QAM 07/24/18 12/07/19 History levothyroxine 150 mcg PO QAM 07/24/18 12/07/19 History lisinopril 2.5 mg PO QAM 07/24/18 12/07/19 History metformin 1,000 mg PO HS 07/24/18 12/07/19 History oxybutynin chloride 10 mg PO QAM 07/24/18 12/07/19 History pentoxifylline 1 tab PO BID 07/24/18 12/07/19 History empagliflozin 10 mg tablet 10 mg PO QAM 03/09/19 12/07/19 History Probiotic 3,000 mmu cells PO QAM 07/30/19 12/07/19 History cholecalciferol (vitamin D3) 25 mcg PO QPM 07/30/19 12/07/19 History [Vitamin D3] cyanocobalamin (vitamin B-12) 1,000 mcg PO HS 07/30/19 12/07/19 History ibuprofen [Motrin IB] 600 mg PO Q6H PRN 07/30/19 12/07/19 History tramadol 50 mg PO BID 12/07/19 12/07/19 History 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 Status post completion of radiation therapy 08/02/2016 received 3850 cGy utilizing accelerated partial breast treatment" Breast cancer RIGHT-05/2016 Hyperlipidemia Hypertension Migraine HX Peripheral artery disease (Chronic) Thyroid nodule RADIATION [place] Type 2 diabetes mellitus (Chronic) Surgical History History of cataract surgery R/L History of colonoscopy X MULTIPLE Hx of lumpectomy 2016 WITH NODE EXCISION-RADIATION/NO CHEMO Family History Mother Family hx of colon cancer Other Cancer Diabetes Lung disease Social History Preferred Language: Chilean Communication Ability: Effective 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 Beliefs That Will Affect Care: None Current Living Situation: Alone Other Information That Helps Us Care for You: No Feels Safe at Home: Yes Safety Concerns: Feels Safe At This Time Smoking Status: Never smoker Do You Dip or Chew Tobacco: No ; Second Hand Exposure: No ; Tobacco Cessation Education Requested by Patient: No Hx Alcohol Use: No Hx Substance Use: No Review of Systems Gastrointestinal: + nausea and + vomiting Neurologic: + numbness (R forearm ) and + abnormal speech Physical Exam Constitutional: WD/WN, vitals as above no acute distress Eyes: + anicteric sclerae and + nystagmus (2 beats horiztontal in R eye) ENMT: external ear and nose normal, oropharynx normal Neck: normal visual inspection and trachea midline Respiratory: normal respiratory effort, lungs clear to auscultation Cardiovascular: Rate/Rhythm: regular rate and regular rhythm Heart Sounds: normal S1, normal S2 and + murmur (systolic ejection murmur) Vessels: normal carotid upstroke Extremities: no pedal edema Gastrointestinal (Abdomen): normal bowel sounds, soft, nontender, no hepatosplenomegaly Skin: no rashes, warm and dry Neurologic: PERRL, EOMI, accommodation nl, no face palsy, no dysarthria CN's II-XI intact bilaterally and moves all extremities; no focal motor deficits Speech / Cognition: normal speech Motor/Sensory: no sensory deficit Coordination: + abnormal rapid alternating movements (R hand clumisness relative to left ) Psychiatric: A+Ox3, euthymic affect Results & Data Results & Data ([facility]) Vital Signs (Past 12 Hours) Vital Signs Temp Pulse Resp BP Pulse Ox 12/07/19 20:31 73 94 12/07/19 20:30 73 124/73 93 12/07/19 20:01 75 21 125/75 95 12/07/19 20:00 77 21 12/07/19 19:32 72 20 96 12/07/19 19:31 73 20 121/64 96 12/07/19 19:30 74 20 12/07/19 19:00 78 29 H 147/66 H 96 12/07/19 18:54 73 17 138/84 95 12/07/19 18:30 75 18 98 12/07/19 18:10 73 15 132/55 L 97 12/07/19 18:08 74 17 12/07/19 17:34 97 12/07/19 17:32 85 20 94 12/07/19 17:30 94 H 21 118/65 94 12/07/19 17:17 37.3 C 93 H 18 117/74 97 Supervising Physician Co-Signing Physician Notes Attending addendum: I have physically seen this patient, have supervised the medical residents activities, and agree with the H&P unless as otherwise noted. Assessment and Plan: Stroke without TPA- Syncopal event, with resolved expressive aphasia but persistent right upper extremity numbness and clumsiness. The patient will be admitted to telemetry for serial cardiac enzymes, serial EKG's, cardiac rhythm monitoring and a 2-D echocardiogram with Dopplers. Admit on stroke without TPA protocol. Continue aspirin 81 mg chewable daily N.p.o. until passes dysphagia screening. Permissive hypertension. CT of head negative. Order CTA head and neck. Order MRI brain without contrast. Consult PT/OT/speech/neurology Check hemoglobin A1c and fasting lipid panel. Hold ibuprofen. Diabetes mellitus- Hold empagliflozin, glipizide and metformin. Placed on Accu-Cheks before meals and at bedtime with NovoLog coverage per scale. Check hemoglobin A1c. Hypothyroidism- Continue levothyroxine 90 mcg daily. Peripheral vascular disease- Continue pentoxifylline. Remainder of orders and notations as noted. Resident Activity Tracking Resident Involvement: Resident Care Provided Care Provided: [facility] Medicine (1) Breast cancer Breast location: lower outer quadrant of breast Estrogen receptor status: positive Laterality: right Patient sex: female Qualified Code(s): C50.511 - Malignant neoplasm of lower-outer quadrant of right female breast; Z17.0 - Estrogen receptor positive status [ER+]
[2019-12-07] MEDS ORDERED: GLUCOSE 10 TABS/TUBE PO PRN (21:40)
[2019-12-07] MEDS ORDERED: DEXTROSE 50% 50 ML SYRINGE IV PRN (21:40)
[2019-12-07] MEDS ORDERED: GLUCAGON FOR INJ 1 MG VIAL SQ PRN (21:40)
[2019-12-07] MEDS ORDERED: PHARMACIST DISCHARGE MED REC CONSULT PRN (21:40)
[2019-12-07] MEDS ORDERED: GLUCOSE 40% GEL 15 GM TUBE PO PRN (21:40)
[2019-12-07] MEDS ORDERED: CARBOHYDRATES FOR HYPOGLYCEMIA PO PRN (21:40)
[2019-12-07] MEDS ORDERED: OPTIRAY 320 125ml IV PRN (22:37)
[2019-12-07] MEDS ORDERED: GADOBUTROL 65ML VIAL IV PRN (23:24)
[2019-12-08] MEDS ORDERED: ENOXAPARIN INJ 40 MG/0.4 ML SYR SQ SCH ×2 (00:15→09:00)
[2019-12-08] MEDS: INSULIN GLARGINE SOLOSTAR 100 UNITS/ML 3 ML PEN SC SCH ×3 (00:20→20:54)
[2019-12-08] MEDS: INSULIN ASPART 100 UNITS/ML 3 ML PEN SC SCH ×5 (00:21→20:56)
[2019-12-08] MEDS: PENTOXIFYLLINE 400MG EXT REL TAB PO SCH ×3 (00:22→20:57)
[2019-12-08] MEDS: CYANOCOBALAMIN 500 MCG TABLET (VITAMIN B-12) PO SCH ×2 (00:22→20:57)
[2019-12-08] MEDS: CHOLECALCIFEROL 1,000 UNITS 25 MCG TAB PO SCH ×3 (00:25→20:58)
[2019-12-08] MEDS: LEVOTHYROXINE SODIUM 150 MCG TABLET PO SCH (05:24)
[2019-12-08 05:29] LABS: Appearance Urine Clear (Clear); Bilirubin Urine Negative (Negative); Blood Urine Negative (Negative); Color Urine Yellow; Glucose Urine UA 3+ (Negative); Ketones Urine Negative (Negative); Leukocyte Esterase Urine Negative (Negative); Nitrite Urine Negative (Negative); Protein Urine Negative (Negative); Specific Gravity Urine 1.024 (1.000-1.030); Urobilinogen Urine Negative (Negative)
[2019-12-08] MEDS ORDERED: LEVOTHYROXINE SODIUM 150 MCG TABLET PO SCH (06:30)
[2019-12-08 06:41] LABS: Basophils # (auto) 0.02 K/uL (0-0.2); Basophils % (auto) 0.2 %; Eosinophils # (auto) 0.11 K/uL (0-0.5); Eosinophils % (auto) 0.9 %; Hematocrit (blood only) 41.2 % (37-47); Immature Granulocytes # (auto) 0.04 K/uL (0.00-0.02); Immature Granulocytes % (auto) 0.3 %; Lymphocytes # (auto) 1.74 K/uL (1.2-3.4); Mean Corpuscular Hemoglobin 32.3 pg (25-34); Mean Corpuscular Volume 94.9 fL (80-100); Mean Platelet Volume 10.4 fL (7.4-10.4); Monocytes # (auto) 0.95 K/uL (0.11-0.59); Monocytes % (auto) 7.7 %; Neutrophils # (auto) 9.53 K/uL (1.4-6.5); Neutrophils % (auto) 76.9 %; Platelet Count 274 K/uL (130-400); RDW Coefficient of Variation 12.3 % (11.5-14.5); RDW Standard Deviation 42.3 fL (36.4-46.3); Red Blood Count 4.34 M/uL (4.2-5.4); White Blood Count 12.39 K/uL (4.8-10.8)
[2019-12-08 06:48] LABS: Prothrombin Time 10.4 Seconds (9.0-12.0)
[2019-12-08 07:06] LABS: Estimated Average Glucose 180 mg/dl; Hemoglobin A1C 7.9 % (4.5-5.6)
[2019-12-08 07:14] LABS: BUN Creatinine Ratio 20.6 (10-20); Calcium 9.6 mg/dl (8.5-10.1); Creatinine Clr Calc Pharmacy 49.1 ml/min; Est GFR (Non-African American) 45.7; Potassium 4.7 mmol/L (3.5-5.1)
--- NOTE | 2019-12-08 07:35 | Magnetic Resonance Report ---
MRI OF THE BRAIN WITHOUT AND WITH IV CONTRAST CLINICAL HISTORY: expressive aphasia, R upper extremity numbness COMPARISON STUDY: Head CT and CTA of the head December 07, 2019. TECHNIQUE: Utilizing a 1.5 Cookie magnet and dedicated coil, multiplanar, multiecho imaging of the br ain was performed pre and postcontrast administration. IV administration of 9 mL of Gadavist contras t was uneventful. FINDINGS: There are several small foci of acute infarction within the left centrum semiovale ovale an d left parietal and temporal lobes. There is no mass effect or hemorrhage. Ventricular system is unre markable. The basilar cisterns are patent. There is no intracranial mass or pathologic enhancement. C alvarial signal is normal. An old infarct within left cerebellar hemisphere is noted. White matter T2 hyperintense foci suggest small vessel disease. Orbits are unremarkable. Note is made of moderate at rophy. IMPRESSION: Several small acute infarcts within the left centrum semiovale ovale and left parietal and temporal l obes. No mass effect or hemorrhage. ACT 112: Negative or not required by law. Electronically signed by: Ismael Darling M.D. 12/08/2019 7:34 AM
[2019-12-08] MEDS: LETROZOLE 2.5 MG TAB PO SCH (07:43)
[2019-12-08] MEDS: ASPIRIN 81 MG ECTAB PO SCH (07:45)
[2019-12-08] MEDS: OXYBUTYNIN CHLORIDE XL 5 MG TABCR PO SCH (07:45)
[2019-12-08] MEDS: FLUOXETINE HCL 20 MG CAP PO SCH (07:45)
--- NOTE | 2019-12-08 07:47 | CT Scan Report ---
CT ANGIOGRAPHY OF THE NECK WITH CONTRAST CLINICAL HISTORY: R upper extremity numbness, expressive aphasia COMPARISON STUDY: No previous studies for comparison. Technique: CT angiography of the carotid and vertebral arteries was obtained using [employer] 320 IV and 3D reconstruction on an independent workstation. NASCET criteria was utilized. Automated exposure c ontrol was utilized for the study. A dose lowering technique was utilized adhering to the principles of ALARA. CT DOSE: 591.72 mGy.cm Findings: Lung apices are clear. There is no cervical lymphadenopathy. There is no cervical spine fra cture. No suspicious osseous lesions are noted. No mucosal lesions are identified by CT. Note is made of calcified and noncalcified plaque within the proximal left internal carotid artery which results in severe stenosis. The vessel caliber at site of narrowing is approximately 0.4 mm. The distal left internal carotid artery measures 3.3 mm in caliber. There is calcified plaque within the proximal rig ht internal carotid artery which results in stenosis. Vessel measures 1.1 mm in caliber at site of st enosis and 3.6 mm distally. There is tortuosity of the cervical left internal carotid artery and prox imal left vertebral artery. The vertebral arteries are patent. There is no dissection within the iker r vessels of the neck. Incidental note is made of a 1.2 cm right lobe thyroid nodule. IMPRESSION: 1. Severe stenosis of the proximal bilateral internal carotid arteries, more severe on the left. Appr oximate 90% stenosis of the proximal left internal carotid artery and 80% stenosis of the proximal ri ght internal carotid artery. 2. No dissection. ACT 112: Negative or not required by law. Electronically signed by: Ismael Darling M.D. 12/08/2019 7:46 AM
--- NOTE | 2019-12-08 08:19 | CT Scan Report ---
HEAD CTA HISTORY: R hand numbness, expressive aphasia TECHNIQUE: Multiaxial CT images of the head were performed following the intravenous administration o f contrast to evaluate the major cerebral vessels. Maximum intensity projection images were also obta ined. A dose lowering technique was utilized adhering to the principles of ALARA. COMPARISON: Head CT 12/07/2019. FINDINGS: Outside plaque within the cavernous portion of internal carotid arteries, left greater than right. Disr-nj-ngpcucos diffuse narrowing of the intracranial left internal carotid artery in compar brandon to the right. This demonstrates up to 60% narrowing within the distal petrous and cavernous segm ents. Visualized distal vertebral arteries, and basilar artery are widely patent. There is no signifi cant stenosis, occlusion, or aneurysm seen within the bilateral ACAs, MCAs, or order processor. IMPRESSION: No significant stenosis, occlusion, or aneurysm within the ely [place]. Mild to moderate narrowi ng of the intracranial left internal carotid artery which demonstrates up to 60% narrowing at the dis akash petrous and cavernous segments. ACT 112: Negative or not required by law. Electronically signed by: Anant Adam M.D. 12/08/2019 8:17 AM
[2019-12-08] MEDS ORDERED: ATORVASTATIN 40 MG TAB PO SCH (09:00)
[2019-12-08] MEDS: TRAMADOL HCL 50 MG TABLET PO SCH ×2 (09:36→20:55)
--- NOTE | 2019-12-08 11:19 | Neurology Consultation ---
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 There is an 80% stenosis of the proximal right internal carotid artery as well which would be considered asymptomatic at this time. Patient will need consultation with vascular surgery to discuss carotid endarterectomy. Would start Plavix 75 mg/day. Continue daily low-dose aspirin. Consider increasing dosage of atorvastatin to 80 mg/day. Please order echocardiogram if not already done so. PT/OT/speech therapy consultations. Avoid aggressive reduction in blood pressure, systolic blood pressure 140 to 160 mmHg appropriate at this time. History of Present Illness Reason for Consultation: Stroke Requesting Physician: Patricia Hernández MD Attending Physician: Alireza Chacon DO History of Present Illness The patient is a 74-year-old female with a chief complaint of right upper extremity numbness and weakness with associated difficulty with expressive speech that began acutely late yesterday afternoon, and nearly resolved within about 30 minutes. She continues to complain of very mild difficulty with weakness or coordination of the right hand. Her speech difficulty has resolved. Patient denies headache or vertigo. 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 Allergies Allergy/AdvReac Type Severity Reaction Status Date / Time coffee (Coffea arabica) Allergy Severe TONGUE Verified 12/07/19 18:43 SWELLING,HIVES-COFFEE BEANS No Known Drug Allergies Allergy Unknown Verified 12/08/19 12:01 magnesium salicylate AdvReac Mild migraines-M Verified 12/07/19 18:43 SG lactose AdvReac Unknown INTOLERANT Verified 12/07/19 18:43 WITH MILK PRODUCTS Home Medications Home Medications Medication Instructions Recorded Confirmed Type aspirin 81 mg PO QAM 07/24/18 12/07/19 History atorvastatin 40 mg PO QAM 07/24/18 12/07/19 History cholecalciferol (vitamin D3) 4,000 unit PO QAM 07/24/18 12/07/19 History fluoxetine 60 mg PO QAM 07/24/18 12/07/19 History glipizide 2.5 mg PO QAM 07/24/18 12/07/19 History letrozole 2.5 mg PO QAM 07/24/18 12/07/19 History levothyroxine 150 mcg PO QAM 07/24/18 12/07/19 History lisinopril 2.5 mg PO QAM 07/24/18 12/07/19 History metformin 1,000 mg PO HS 07/24/18 12/07/19 History oxybutynin chloride 10 mg PO QAM 07/24/18 12/07/19 History pentoxifylline 1 tab PO BID 07/24/18 12/07/19 History empagliflozin 10 mg tablet 10 mg PO QAM 03/09/19 12/07/19 History Probiotic 3,000 mmu cells PO QAM 07/30/19 12/07/19 History cholecalciferol (vitamin D3) 25 mcg PO QPM 07/30/19 12/07/19 History [Vitamin D3] cyanocobalamin (vitamin B-12) 1,000 mcg PO HS 07/30/19 12/07/19 History ibuprofen [Motrin IB] 600 mg PO Q6H PRN 07/30/19 12/07/19 History tramadol 50 mg PO BID 12/07/19 12/07/19 History Patient History Medical History Arthritis LEFT HAND Breast cancer (Chronic 04/17/16) "Abnormal right breast mammogram 04/17/2016 Status post stereotactic guided biopsy of the right breast 05/27/2016 revealing microinvasive ductal carcinoma Status post right partial mastectomy and sentinel lymph node biopsy 05/31 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 Status post completion of radiation therapy 08/02/2016 received 3850 cGy utilizing accelerated partial breast treatment" Breast cancer RIGHT-05/2016 Hyperlipidemia Hypertension Migraine HX Peripheral artery disease (Chronic) Thyroid nodule RADIATION [place] Type 2 diabetes mellitus (Chronic) Surgical History History of cataract surgery R/L History of colonoscopy X MULTIPLE Hx of lumpectomy 2015 WITH NODE EXCISION-RADIATION/NO CHEMO Family History Mother Family hx of colon cancer Other Cancer Diabetes Lung disease Social History Preferred Language: Mongolian Communication Ability: Effective District Superintendent Required: No Beliefs That Will Affect Care: None Current Living Situation: Alone Other Information That Helps Us Care for You: No Feels Safe at Home: Yes Safety Concerns: Feels Safe At This Time Smoking Status: Never smoker Do You Dip or Chew Tobacco: No ; Second Hand Exposure: No ; Tobacco Cessation Education Requested by Patient: No Hx Alcohol Use: No Hx Substance Use: No Review of Systems Constitutional: no fever and no chills Eyes: no blind spots and no diplopia Ear, Nose, Mouth, Throat: no hearing loss Respiratory: no cough and no dyspnea Cardiovascular: no chest pain and no palpitations Gastrointestinal: no nausea and no vomiting Genitourinary: no urinary incontinence Musculoskeletal: no neck pain and no myalgia Integumentary: no rash and no lesions Neurologic: as per Subjective / HPI, + localized weakness, + loss of sensation and + abnormal speech Psychiatric: no depression and no anxiety Hematologic / Lymphatic: no easy bleeding and no easy bruising Exam (Neuro) Physical Exam: Patient has mild dysmetria with [id number] on the right and mild impairment of fine finger movements for the right hand. Otherwise, strength is full, no facial droop, no aphasia at this time. Constitutional: well developed and well nourished; no acute distress Eyes: normal visual mulligan by confrontation, PERRL, normal accommodation and EOM intact bilaterally; no fundoscopic abnormality, no nystagmus and no papilledema Cardiovascular: Vessels: normal carotid upstroke; no carotid bruit Neurologic: Oriented to:: Person, Place and Time Memory: Short Term Intact and Remote Intact Attention: Span Intact and Concentration Intact Language: Naming Objects and Repeating Phrases Speech Fluency: negative Dysarthria Speech Aphasia: negative Aphasia Fund of Knowledge: Current Events, Past History and Vocabulary Cranial Nerves: Normal II (Visual mulligan full to confrontation, visual acuity normal), III, IV, (Pupils equal round reactive to light and accommodation, eye movements normal), V (Facial sensation intact), VII (There is no facial droop or weakness), VIII (Hearing intact), IX, X (Palate elevates to midline), XI (Shoulder shrug intact) and XII (Tongue protrudes to midline) Motor Strength: Normal Lower Extremities and Normal Upper Extremities; negative Pronator Drift Motor Tone: Normal Lower Extremities and Normal Upper Extremities Muscle Bulk/Involuntary Movements: No Involuntary Movements; negative Muscle Atrophy Sensation: Light Touch Intact, Pain/Temperature Intact, Vibration Intact and Proprioception Intact Coordination: Normal and Finger-Nose Abnormal Laterality: Right; negative Limited Balance, Dysdiadochokinesia and Heel-Bui Abnormal Deep Tendon Reflexes: Rt Triceps: 2+, Lt Triceps: 2+, Rt Biceps: 2+, Lt Biceps: 2+, Rt Brachioradialis: 2+, Lt Brachioradialis: 2+, Rt Patellar: 2+, Lt Patellar: 2+, Rt Ankle: 2+ and Lt Ankle: 2+ Special Tests: negative Babinski Present Gait: Normal Station and Gait Results & Data ([facility]) Vital Signs (Past 12 Hours) Vital Signs Temp Pulse Pulse Pulse Resp BP Pulse Ox 12/08/19 07:41 36.8 C 78 16 132/81 96 12/08/19 03:44 36.8 C 71 17 135/72 95 12/08/19 00:00 66 12/07/19 23:45 36.7 C 67 18 147/81 H 95 Laboratory Results Triglycerides 204, cholesterol 124, LDL 54, VLDL 41, HDL 29 Diagnostic Findings An MRI of the brain reveals several small acute infarcts within the left centrum semiovale as well as the left parietal and left temporal lobes. There is a chronic infarct within the left cerebellar hemisphere. CT angiography of the head and neck reveals severe stenosis of the proximal bilateral internal carotid arteries, 90% on the left, 80% on the right. There is a 60% narrowing at the distal petrous and cavernous segments of the left internal carotid artery. I reviewed the images as well as the radiologist's interpretation of these tests. An electrocardiogram reveals a normal sinus rhythm. 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
--- NOTE | 2019-12-08 12:00 | Hospitalist Progress Note ---
Date of Service December 08, 2019 Assessment & Plan (1) Stroke due to embolism of carotid artery: already on aspirin, will add Plavix 75mg daily increase Lipitor to 80mg daily symptoms of right arm tingling and weakness are improved speech is improved as well appreciate neurology consultation appreciate vascular surgery consult, recommend left CEA on Friday, patient agrees with plan (2) Right upper extremity numbness: due to stroke, MRI brain shows left parietal and temporal lobe scattered strokes symptoms improved/resolved today consult PT/OT to work with patient (3) Type 2 diabetes mellitus: hold oral agents diabetic diet Novolog SS monitor for hypoglycemia (4) Hyperlipidemia: increase Lipitor from 40mg to 80mg due to stroke and severe/critical stenosis (5) Hypertension: BP control with Lisinopril (6) Carotid artery stenosis: bilateral, left is severe/critical with 90% and stroke on left side right is moderate to severe, no need for intervention at this time (7) Depression: on Prozac Prozac interacts with Plavix, decreases the effectiveness of the Plavix would recommend changing SSRI as outpatient, would require taper off of Prozac will defer to PCP, for now will continue mood is stable Admission and Anticipated Discharge Date Admission Date: December 07, 2019 Subjective patient doing better, speech is improved discussed with Dr. Lorenz, he recommended adding Plavix, increasing Lipitor discussed with Dr. Sears, he recommends carotid EA on friday for the severe left ICA stenosis patient agrees with this plan reviewed chart, reviewed labs, reviewed imaging patient eating well, moving right hand and arm a lot better, strength near normal speech clear, no more word finding Review of Systems Review of Systems: All systems reviewed & are unremarkable except as noted in HPI & below Musculoskeletal: + muscle weakness (right arm and hand) Neurologic: + abnormal speech (some word finding, improved) Physical Exam Constitutional: WD/WN, vitals as above + overweight Eyes: PERRL, conjunctivae normal, anicteric sclerae ENMT: external ear and nose normal, oropharynx normal Neck: trachea midline, no thyromegaly Respiratory: normal respiratory effort, lungs clear to auscultation Cardiovascular: RRR, no murmur, no edema Gastrointestinal (Abdomen): normal bowel sounds, soft, nontender, no hepatosplenomegaly Musculoskeletal: no cyanosis or clubbing, extremities motor strength 5/5 Skin: no rashes, warm and dry Neurologic: patellar DTR's 2+ bilat, sensation intact and PERRL, EOMI, accommodation nl, no face palsy, no dysarthria Psychiatric: A+Ox3, euthymic affect Lymphatic: no cervical or axillary lymphadenopathy Results & Data Results & Data ([facility]) Vital Signs (Past 12 Hours) Vital Signs Temp Pulse Pulse Pulse Resp BP Pulse Ox 12/08/19 11:29 37.5 C 75 18 118/77 95 12/08/19 07:41 36.8 C 78 16 132/81 96 12/08/19 03:44 36.8 C 71 17 135/72 95 12/08/19 00:00 66 Laboratory Results Laboratory Results - last 24 hr 12/07/19 12/07/19 12/07/19 17:42 17:42 17:42 WBC 15.25 H RBC 4.62 Hgb 14.6 Hct 43.5 MCV 94.2 MCH 31.6 MCHC 33.6 RDW Std Deviation 41.8 RDW Coeff of Slim 12.3 Plt Count 301 MPV 10.2 Immature Gran % (Auto) 0.2 Neut % (Auto) 85.9 Lymph % (Auto) 8.1 [place] % (Auto) 5.0 Eos % (Auto) 0.7 Baso % (Auto) 0.1 Immature Gran # (Auto) 0.03 H Neut # (Auto) 13.11 H Lymph # (Auto) 1.23 [place] # (Auto) 0.76 H Eos # (Auto) 0.10 Baso # (Auto) 0.02 PT INR Sodium 136 Potassium 4.5 Chloride 106 Carbon Dioxide 20 L Anion Gap 10.0 BUN 27 H Creatinine 1.19 Est Cr Clr Drug Dosing 49.9 Est GFR ( Amer) 52.4 Est GFR (Non-Af Amer) 45.3 BUN/Creatinine Ratio 22.5 H Glucose 145 H POC Glucose Estimat Average Glucose 180 Hemoglobin A1c 7.9 H Calcium 9.5 Magnesium 2.0 Total Bilirubin 0.9 AST 15 ALT 28 Alkaline Phosphatase 131 H Troponin I < 0.015 Total Protein 7.9 Albumin 3.8 Globulin 4.1 H Albumin/Globulin Ratio 0.9 Triglycerides Cholesterol LDL Cholesterol, Calc VLDL Cholesterol, Calc HDL Cholesterol Cholesterol/HDL Ratio TSH 0.371 Urine Color Urine Appearance Urine pH Ur Specific Broad Top Urine Protein Urine Glucose (UA) Urine Ketones Urine Blood Urine Nitrite Urine Bilirubin Urine Urobilinogen Ur Leukocyte Esterase 12/08/19 12/08/19 12/08/19 00:06 05:25 06:00 WBC 12.39 H RBC 4.34 Hgb 14.0 Hct 41.2 MCV 94.9 MCH 32.3 MCHC 34.0 RDW Std Deviation 42.3 RDW Coeff of Slim 12.3 Plt Count 274 MPV 10.4 Immature Gran % (Auto) 0.3 Neut % (Auto) 76.9 Lymph % (Auto) 14.0 [place] % (Auto) 7.7 Eos % (Auto) 0.9 Baso % (Auto) 0.2 Immature Gran # (Auto) 0.04 H Neut # (Auto) 9.53 H Lymph # (Auto) 1.74 [place] # (Auto) 0.95 H Eos # (Auto) 0.11 Baso # (Auto) 0.02 PT INR Sodium Potassium Chloride Carbon Dioxide Anion Gap BUN Creatinine Est Cr Clr Drug Dosing Est GFR ( Amer) Est GFR (Non-Af Amer) BUN/Creatinine Ratio Glucose POC Glucose 102 H Estimat Average Glucose Hemoglobin A1c Calcium Magnesium Total Bilirubin AST ALT Alkaline Phosphatase Troponin I Total Protein Albumin Globulin Albumin/Globulin Ratio Triglycerides Cholesterol LDL Cholesterol, Calc VLDL Cholesterol, Calc HDL Cholesterol Cholesterol/HDL Ratio TSH Urine Color Yellow Urine Appearance Clear Urine pH 7.0 Ur Specific Broad Top 1.024 Urine Protein Negative Urine Glucose (UA) 3+ H Urine Ketones Negative Urine Blood Negative Urine Nitrite Negative Urine Bilirubin Negative Urine Urobilinogen Negative Ur Leukocyte Esterase Negative 12/08/19 12/08/19 12/08/19 06:00 06:00 07:43 WBC RBC Hgb Hct MCV MCH MCHC RDW Std Deviation RDW Coeff of Slmi Plt Count MPV Immature Gran % (Auto) Neut % (Auto) Lymph % (Auto) [place] % (Auto) Eos % (Auto) Baso % (Auto) Immature Gran # (Auto) Neut # (Auto) Lymph # (Auto) [place] # (Auto) Eos # (Auto) Baso # (Auto) PT 10.4 INR 1.0 Sodium 137 Potassium 4.7 Chloride 105 Carbon Dioxide 25 Anion Gap 7.0 BUN 24 H Creatinine 1.18 Est Cr Clr Drug Dosing 49.1 Est GFR ( Amer) 53.0 Est GFR (Non-Af Amer) 45.7 BUN/Creatinine Ratio 20.6 H Glucose 147 H POC Glucose 150 H Estimat Average Glucose Hemoglobin A1c Calcium 9.6 Magnesium Total Bilirubin AST ALT Alkaline Phosphatase Troponin I Total Protein Albumin Globulin Albumin/Globulin Ratio Triglycerides 204 H Cholesterol 124 LDL Cholesterol, Calc 54 VLDL Cholesterol, Calc 41 HDL Cholesterol 29 Cholesterol/HDL Ratio 4 TSH Urine Color Urine Appearance Urine pH Ur Specific Broad Top Urine Protein Urine Glucose (UA) Urine Ketones Urine Blood Urine Nitrite Urine Bilirubin Urine Urobilinogen Ur Leukocyte Esterase 12/08/19 11:40 WBC RBC Hgb Hct MCV MCH MCHC RDW Std Deviation RDW Coeff of Slim Plt Count MPV Immature Gran % (Auto) Neut % (Auto) Lymph % (Auto) [place] % (Auto) Eos % (Auto) Baso % (Auto) Immature Gran # (Auto) Neut # (Auto) Lymph # (Auto) [place] # (Auto) Eos # (Auto) Baso # (Auto) PT INR Sodium Potassium Chloride Carbon Dioxide Anion Gap BUN Creatinine Est Cr Clr Drug Dosing Est GFR ( Amer) Est GFR (Non-Af Amer) BUN/Creatinine Ratio Glucose POC Glucose 161 H Estimat Average Glucose Hemoglobin A1c Calcium Magnesium Total Bilirubin AST ALT Alkaline Phosphatase Troponin I Total Protein Albumin Globulin Albumin/Globulin Ratio Triglycerides Cholesterol LDL Cholesterol, Calc VLDL Cholesterol, Calc HDL Cholesterol Cholesterol/HDL Ratio TSH Urine Color Urine Appearance Urine pH Ur Specific Broad Top Urine Protein Urine Glucose (UA) Urine Ketones Urine Blood Urine Nitrite Urine Bilirubin Urine Urobilinogen Ur Leukocyte Esterase Medications Administered Current Inpatient Medications Aspirin (Ecotrin Ectab) 81 mg PO [facility] Stop: 01/07/20 08:59 Last Admin: 12/08/19 07:45 Dose: 81 mg Documented by: Atorvastatin Calcium (Lipitor) 80 mg PO [facility] Stop: 01/08/20 08:59 [facility]idogrel [facility]) [facility]: 01/07/20 11:59 Cyanocobalamin (Vitamin B-12) 1,000 mcg PO [facility] Stop: 01/06/20 21:39 Last Admin: 12/08/19 00:22 Dose: 1,000 mcg Documented by: Dextrose (Dextrose 50%) 25 - 50 ml IV UD PRN; Protocol PRN Reason: Hypoglycemia Protocol Stop: 01/06/20 21:39 Enoxaparin Sodium (Lovenox) 40 mg SQ DAILY@2100 [facility] Stop: 01/07/20 20:59 Fluoxetine HCl (Prozac) 60 mg PO QAM [facility] Stop: 01/07/20 08:59 Last Admin: 12/08/19 07:45 Dose: 60 mg Documented by: Gadobutrol (Gadavist 65ml) 9 ml IV ONCE PRN PRN Reason: Interaction Checking Stop: 12/11/19 23:23 Last Admin: 12/07/19 23:24 Dose: 9 ml Documented by: Glucagon (Glucagen) 1 mg SQ UD PRN; Protocol PRN Reason: Hypoglycemia Protocol Stop: 01/06/20 21:39 Glucose (Dex4 Glucose) 4 - 8 tabs PO UD PRN; Protocol PRN Reason: Hypoglycemia Protocol Stop: 01/06/20 21:39 Glucose (Glucose 40%) 15 - 30 gm PO UD PRN; Protocol PRN Reason: Hypoglycemia Protocol Stop: 01/06/20 21:39 Insulin Aspart (Novolog Flexpen) 0 units SC ACHS [facility] Stop: 01/06/20 21:39 Last Admin: 12/08/19 11:52 Dose: 5 units Documented by: Insulin Glargine (Lantus Solostar Pen) 9 units SC BID [facility] Stop: 01/06/20 21:39 Last Admin: 12/08/19 07:48 Dose: 9 units Documented by: Ioversol (Optiray 320 125ml) 120 ml IV ONCE PRN PRN Reason: Interaction Checking Stop: 12/11/19 22:36 Last Admin: 12/07/19 22:37 Dose: 120 ml Documented by: Letrozole (Femara) [facility] Stop: 01/07/20 08:59 Last Admin: 12/08/19 07:43 Dose: 2.5 mg Documented by: Levothyroxine Sodium (Synthroid) 150 mcg PO DAILYBB [facility] Stop: 01/07/20 06:29 Last Admin: 12/08/19 05:24 Dose: 150 mcg Documented by: Lisinopril (Zestril) 2.5 mg PO QAM [facility] Stop: 01/07/20 08:59 Last Admin: 12/08/19 07:45 Dose: 2.5 mg Documented by: Miscellaneous (Carbohydrates For Hypoglycemia) 15 - 30 gm PO UD PRN PRN Reason: Hypoglycemia Protocol Stop: 01/06/20 21:39 Miscellaneous Information (Pharmacist Discharge Med Rec Consult) 1 ea N/A UD PRN PRN Reason: Consult Stop: 01/06/20 21:39 Oxybutynin Chloride (Ditropan Xl) 10 mg PO QAM [facility] Stop: 01/07/20 08:59 Last Admin: 12/08/19 07:45 Dose: 10 mg Documented by: Pentoxifylline (Trental) 400 mg PO BID [facility] Stop: 01/06/20 21:39 Last Admin: 12/08/19 07:45 Dose: 400 mg Documented by: Tramadol HCl (Ultram) 50 mg PO BID [facility] Stop: 01/07/20 08:59 Last Admin: 12/08/19 09:36 Dose: 50 mg Documented by: Vitamin D (Vitamin D3) 4,000 units PO QAM [facility] Stop: 01/07/20 08:59 Last Admin: 12/08/19 07:43 Dose: 4,000 units Documented by: Vitamin D (Vitamin D3) 1,000 units PO QPM [facility] Stop: 01/06/20 21:39 Last Admin: 12/08/19 00:25 Dose: 1,000 units Documented by: PG Care Time/CCT Total # of Minutes Spent Total Time Spent with Patient: Total time spent is greater than 50% in coordinat ion of care (as documented) at patient's floor/unit and/or counseling patient: Coding Level of Care Code 50734 Subseq Hosp Care Lvl 3 Diagnoses Stroke due to embolism of carotid artery I63.139 Right upper extremity numbness R20.0 Type 2 diabetes mellitus E11.9 Hyperlipidemia E78.5 Hypertension I10 Carotid artery stenosis I65.29 Depression F32.9
[2019-12-08] MEDS: CLOPIDOGREL BISULFATE 75 MG TAB PO SCH (13:09)
--- NOTE | 2019-12-08 13:21 | Consultation ---
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 Pt also seen by Dr Sears today. Recommends pt undergo L CEA in OR on FRIDAY. Pt agreeable, but did request we also speak with her friend, Ankit. R ICA stenosis also noted to be significant, but is asymptomatic at this time. Will discuss at later appts. Patient was seen, examined, and chart reviewed. Agree with exam and treatment plan of the Vascular PA. Patient for a left CEA this Friday. I have discussed the risks options and benefits of the procedure with the patient. The patient understands the risks options and benefits and agrees to the procedure. History of Present Illness Reason for Consultation: L hemispheric CVA, BL ICA stenosis Attending Physician: Alireza Chacon DO History of Present Illness 74 yo f with hx of breast ca, DMII, hypothyriodism, admitted yesterday after experiencing difficulty speaking and RUE numbness/weakness, seen in consultation today for Bl ICA stenosis noted on CTA. Pt states she fell to her floor at home yesterday and had R hand numbness and weakness and difficulty speaking. She was finally able to get up after about 30 minutes and call her friend, who helped her call ambulance. States she had a L sided HOOD and felt "off" 3 days ago, but that resolved after a few hrs. No other sx until she fell yesterday. Pt states she feels tired today. Her expressive aphasia and R hand weakness/numbness have improved slightly, but not resolved. Denies amaurosis, facial droop, chest pain, SOB, palpitations, abd pain, N/V, recent illness, rest pain, other complaints. No prior similar events. Does have a hx of sciatica and chronic pain/weakness of BLE, uses a cane typically for ambulation. Feels slightly weaker than normal when trying to ambulate. CTA neck demonstrates 90% stenosis of L ICA and 70-80% of R ICA. Allergies Allergy/AdvReac Type Severity Reaction Status Date / Time coffee (Coffea arabica) Allergy Severe TONGUE Verified 12/07/19 18:43 SWELLING,HIVES-COFFEE BEANS No Known Drug Allergies Allergy Unknown Verified 12/08/19 12:01 magnesium salicylate AdvReac Mild migraines-M Verified 12/07/19 18:43 SG lactose AdvReac Unknown INTOLERANT Verified 12/07/19 18:43 WITH MILK PRODUCTS Home Medications Home Medications Medication Instructions Recorded Confirmed Type aspirin 81 mg PO QAM 07/24/18 12/07/19 History atorvastatin 40 mg PO QAM 07/24/18 12/07/19 History cholecalciferol (vitamin D3) 4,000 unit PO QAM 07/24/18 12/07/19 History fluoxetine 60 mg PO QAM 07/24/18 12/07/19 History glipizide 2.5 mg PO QAM 07/24/18 12/07/19 History letrozole 2.5 mg PO QAM 07/24/18 12/07/19 History levothyroxine 150 mcg PO QAM 07/24/18 12/07/19 History lisinopril 2.5 mg PO QAM 07/24/18 12/07/19 History metformin 1,000 mg PO HS 07/24/18 12/07/19 History oxybutynin chloride 10 mg PO QAM 07/24/18 12/07/19 History pentoxifylline 1 tab PO BID 07/24/18 12/07/19 History empagliflozin 10 mg tablet 10 mg PO QAM 03/09/19 12/07/19 History Probiotic 3,000 mmu cells PO QAM 07/30/19 12/07/19 History cholecalciferol (vitamin D3) 25 mcg PO QPM 07/30/19 12/07/19 History [Vitamin D3] cyanocobalamin (vitamin B-12) 1,000 mcg PO HS 07/30/19 12/07/19 History ibuprofen [Motrin IB] 600 mg PO Q6H PRN 07/30/19 12/07/19 History tramadol 50 mg PO BID 12/07/19 12/07/19 History Patient History Medical History Arthritis LEFT HAND Breast cancer (Chronic 04/17/16) "Abnormal right breast mammogram 04/17/2016 Status post stereotactic guided biopsy of the right breast 05/27/2016 revealing microinvasive ductal carcinoma Status post right partial mastectomy and sentinel lymph node biopsy 06/21/2016 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 Status post completion of radiation therapy 08/02/2016 received 3850 cGy utilizing accelerated partial breast treatment" Breast cancer RIGHT-05/2016 Hyperlipidemia Hypertension Migraine HX Peripheral artery disease (Chronic) Thyroid nodule RADIATION TX Type 2 diabetes mellitus (Chronic) Surgical History History of cataract surgery R/L History of colonoscopy X MULTIPLE Hx of lumpectomy 2016 WITH NODE EXCISION-RADIATION/NO CHEMO Family History Mother Family hx of colon cancer Other Cancer Diabetes Lung disease Social History Preferred Language: Nauruan Communication Ability: Effective Professor/Nurse Anesthetist Required: No Beliefs That Will Affect Care: None Current Living Situation: Alone Other Information That Helps Us Care for You: No Feels Safe at Home: Yes Safety Concerns: Feels Safe At This Time Smoking Status: Never smoker Do You Dip or Chew Tobacco: No ; Second Hand Exposure: No ; Tobacco Cessation Education Requested by Patient: No Hx Alcohol Use: No Hx Substance Use: No Review of Systems Review of Systems: All systems reviewed & are unremarkable except as noted in HPI & below Physical Exam Constitutional: WD/WN, vitals as above + obese, healthy appearing, cooperative and comfortable; not in distress Eyes: PERRL, conjunctivae normal, anicteric sclerae ENMT: external ear and nose normal, oropharynx normal Ears: no hearing impairment Neck: trachea midline, no thyromegaly normal visual inspection Respiratory: normal respiratory effort, lungs clear to auscultation Cardiovascular: RRR, no murmur, no edema Vessels: brachial pulses present and radial pulses present; + abnormal peripheral pulses Extremities: normal capillary refill Gastrointestinal (Abdomen): normal bowel sounds, soft, nontender, no hepatosplenomegaly Musculoskeletal: Extremities: extremities normal to inspection and strength 5/5 throughout Skin: no rashes, warm and dry Neurologic: moves all extremities and awake; not confused Speech / Cognition: + abnormal speech (difficulty word finding, stuttering.) and + abnormal cognition Psychiatric: A+Ox3, euthymic affect Results & Data Vital Signs (Past 12 Hours) Vital Signs Temp Pulse Pulse Resp BP Pulse Ox 12/08/19 11:29 37.5 C 75 18 118/77 95 12/08/19 07:41 36.8 C 78 16 132/81 96 12/08/19 03:44 36.8 C 71 17 135/72 95
[2019-12-08] MEDS: ENOXAPARIN INJ 40 MG/0.4 ML SYR SQ SCH (20:55)
--- NOTE | 2019-12-08 21:27 | Billing Data ---
Date of Service December 08, 2019 Coding Level of Care Code 57176 Initial Inpt Care Lvl 3
--- NOTE | 2019-12-08 22:09 | Electrocardiogram Report ---
Test Reason : Blood Pressure : / mmHG Vent. Rate : 094 BPM Atrial Rate : 094 BPM P-R Int : 152 ms QRS Dur : 078 ms QT Int : 360 ms P-R-T Axes : 035 -39 041 degrees QTc Int : 450 ms Poor data quality, interpretation may be adversely affected Normal sinus rhythm Left axis deviation Low voltage QRS Cannot rule out Anterior infarct , age undetermined Abnormal ECG When compared with ECG of 24-JUL-2018 20:33, Minimal criteria for Anterior infarct are now Present Confirmed by Phong Chen ([id number]) on 12/08/2019 10:09:14 PM Referred By: REFERRED SELF Confirmed By:Phong Chen
[2019-12-09] MEDS: LEVOTHYROXINE SODIUM 150 MCG TABLET PO SCH (05:12)
[2019-12-09 06:17] LABS: Basophils # (auto) 0.02 K/uL (0-0.2); Basophils % (auto) 0.2 %; Eosinophils # (auto) 0.13 K/uL (0-0.5); Eosinophils % (auto) 1.3 %; Hematocrit (blood only) 40.1 % (37-47); Hemoglobin 13.5 g/dL (12.0-16.0); Immature Granulocytes # (auto) 0.03 K/uL (0.00-0.02); Immature Granulocytes % (auto) 0.3 %; Lymphocytes # (auto) 1.59 K/uL (1.2-3.4); Lymphocytes % (auto) 16.3 %; Mean Corpuscular Hemoglobin 31.8 pg (25-34); Mean Corpuscular Hgb Conc 33.7 g/dL (32-36); Mean Corpuscular Volume 94.6 fL (80-100); Monocytes # (auto) 0.81 K/uL (0.11-0.59); Monocytes % (auto) 8.3 %; Neutrophils # (auto) 7.17 K/uL (1.4-6.5); Neutrophils % (auto) 73.6 %; Platelet Count 267 K/uL (130-400); RDW Coefficient of Variation 12.3 % (11.5-14.5); RDW Standard Deviation 42.4 fL (36.4-46.3); Red Blood Count 4.24 M/uL (4.2-5.4); White Blood Count 9.75 K/uL (4.8-10.8)
[2019-12-09 06:54] LABS: BUN Creatinine Ratio 16.3 (10-20); Calcium 9.8 mg/dl (8.5-10.1); Creatinine Clr Calc Pharmacy 43.7 ml/min; Est GFR (African American) 45.8; Est GFR (Non-African American) 39.6; Potassium 4.4 mmol/L (3.5-5.1)
[2019-12-09] MEDS: INSULIN ASPART 100 UNITS/ML 3 ML PEN SC SCH ×4 (08:20→21:46)
[2019-12-09] MEDS: LETROZOLE 2.5 MG TAB PO SCH (08:21)
[2019-12-09] MEDS: CHOLECALCIFEROL 1,000 UNITS 25 MCG TAB PO SCH ×2 (08:21→20:19)
[2019-12-09] MEDS: INSULIN GLARGINE SOLOSTAR 100 UNITS/ML 3 ML PEN SC SCH ×2 (08:21→21:50)
[2019-12-09] MEDS: PENTOXIFYLLINE 400MG EXT REL TAB PO SCH ×2 (08:22→20:18)
[2019-12-09] MEDS: CLOPIDOGREL BISULFATE 75 MG TAB PO SCH (08:22)
[2019-12-09] MEDS: OXYBUTYNIN CHLORIDE XL 5 MG TABCR PO SCH (08:22)
[2019-12-09] MEDS: ASPIRIN 81 MG ECTAB PO SCH (08:22)
[2019-12-09] MEDS: FLUOXETINE HCL 20 MG CAP PO SCH (08:22)
[2019-12-09] MEDS: ATORVASTATIN 40 MG TAB PO SCH (08:22)
[2019-12-09] MEDS: TRAMADOL HCL 50 MG TABLET PO SCH ×2 (08:24→20:20)
--- NOTE | 2019-12-09 10:45 | XCELERA ---
[id number]
--- NOTE | 2019-12-09 13:38 | Hospitalist Progress Note ---
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: already on aspirin, will add Plavix 75mg daily increase Lipitor to 80mg daily symptoms of right arm tingling and weakness are improved/resolved today speech is improved as well, speaking clearly, making effort to speak slowly appreciate neurology consultation appreciate vascular surgery consult, recommend left CEA on Friday, patient agrees with plan NPO after midnight for surgery tomorrow (2) Right upper extremity numbness: due to stroke, MRI brain shows left parietal and temporal lobe scattered strokes symptoms improved/resolved today consult PT/OT to work with patient (3) Type 2 diabetes mellitus: hold oral agents diabetic diet Novolog monitor for hypoglycemia, no episodes (4) Hyperlipidemia: increase Lipitor from 40mg to 80mg due to stroke and severe/critical stenosis (5) Hypertension: BP control with Lisinopril (6) Carotid artery stenosis: bilateral, left is severe/critical with 90% and stroke on left side right is moderate to severe, no need for intervention at this time (7) Depression: on Prozac Prozac interacts with Plavix, decreases the effectiveness of the Plavix would recommend changing SSRI as outpatient, would require taper off of Prozac will defer to PCP, for now will continue mood is stable Admission and Anticipated Discharge Date Admission Date: December 07, 2019 Subjective patient is happy, she is speaking more clearly today, making an effort to speak slowly her right hand strength is near normal, coordination intact, she used the hand to wash her face and brush her hair today she is eating well, ambulating well, no chest pain, no dyspnea, no fever/chills she is planning for CEA tomorrow with Dr. Sears Review of Systems Review of Systems: All systems reviewed & are unremarkable except as noted in HPI & below Physical Exam Constitutional: WD/WN, vitals as above + overweight Eyes: PERRL, conjunctivae normal, anicteric sclerae ENMT: external ear and nose normal, oropharynx normal Neck: trachea midline, no thyromegaly Respiratory: normal respiratory effort, lungs clear to auscultation Cardiovascular: RRR, no murmur, no edema Gastrointestinal (Abdomen): normal bowel sounds, soft, nontender, no hepatosplenomegaly Musculoskeletal: no cyanosis or clubbing, extremities motor strength 5/5 Skin: no rashes, warm and dry Neurologic: patellar DTR's 2+ bilat, sensation intact and PERRL, EOMI, accommodation nl, no face palsy, no dysarthria Psychiatric: A+Ox3, euthymic affect Lymphatic: no cervical or axillary lymphadenopathy Results & Data Results & Data ([facility]) Vital Signs (Past 12 Hours) Vital Signs Temp Pulse Resp BP Pulse Ox 12/09/19 11:37 36.8 C 75 18 109/70 97 12/09/19 08:03 37.1 C 67 18 118/75 95 12/09/19 03:31 37.4 C 67 18 117/76 92 Laboratory Results Laboratory Results - last 24 hr 12/08/19 12/08/19 12/09/19 16:21 20:45 05:47 WBC 9.75 RBC 4.24 Hgb 13.5 Hct 40.1 MCV 94.6 MCH 31.8 MCHC 33.7 RDW Std Deviation 42.4 RDW Coeff of Slim 12.3 Plt Count 267 MPV 10.0 Immature Gran % (Auto) 0.3 Neut % (Auto) 73.6 Lymph % (Auto) 16.3 [place] % (Auto) 8.3 Eos % (Auto) 1.3 Baso % (Auto) 0.2 Immature Gran # (Auto) 0.03 H Neut # (Auto) 7.17 H Lymph # (Auto) 1.59 [place] # (Auto) 0.81 H Eos # (Auto) 0.13 Baso # (Auto) 0.02 Sodium Potassium Chloride Carbon Dioxide Anion Gap BUN Creatinine Est Cr Clr Drug Dosing Est GFR ( Amer) Est GFR (Non-Af Amer) BUN/Creatinine Ratio Glucose POC Glucose 231 H 186 H Calcium COVID-19 PCR Blood Type Antibody Screen 12/09/19 12/09/19 12/09/19 05:47 07:44 09:37 WBC RBC Hgb Hct MCV MCH MCHC RDW Std Deviation RDW Coeff of Slim Plt Count MPV Immature Gran % (Auto) Neut % (Auto) Lymph % (Auto) [place] % (Auto) Eos % (Auto) Baso % (Auto) Immature Gran # (Auto) Neut # (Auto) Lymph # (Auto) [place] # (Auto) Eos # (Auto) Baso # (Auto) Sodium 137 Potassium 4.4 Chloride 107 Carbon Dioxide 24 Anion Gap 6.0 BUN 22 H Creatinine 1.33 H Est Cr Clr Drug Dosing 43.7 Est GFR ( Amer) 45.8 Est GFR (Non-Af Amer) 39.6 BUN/Creatinine Ratio 16.3 Glucose 151 H POC Glucose 151 H Calcium 9.8 COVID-19 PCR Blood Type O Positive Antibody Screen NEGATIVE 12/09/19 12/09/19 09:50 11:29 WBC RBC Hgb Hct MCV MCH MCHC RDW Std Deviation RDW Coeff of Slim Plt Count MPV Immature Gran % (Auto) Neut % (Auto) Lymph % (Auto) [place] % (Auto) Eos % (Auto) Baso % (Auto) Immature Gran # (Auto) Neut # (Auto) Lymph # (Auto) [place] # (Auto) Eos # (Auto) Baso # (Auto) Sodium Potassium Chloride Carbon Dioxide Anion Gap BUN Creatinine Est Cr Clr Drug Dosing Est GFR ( Amer) Est GFR (Non-Af Amer) BUN/Creatinine Ratio Glucose POC Glucose 159 H Calcium COVID-19 PCR NEGATIVE Blood Type Antibody Screen Medications Administered Current Inpatient Medications Aspirin (Ecotrin Ectab) 81 mg PO [facility] Stop: 01/07/20 08:59 Last Admin: 12/09/19 08:22 Dose: 81 mg Documented by: Atorvastatin Calcium (Lipitor) 80 mg PO [facility] Stop: 01/08/20 08:59 Last Admin: 12/09/19 08:22 Dose: 80 mg Documented by: Clopidogrel Bisulfate (Plavix) 75 mg PO [facility] Stop: 01/07/20 12:59 Last Admin: 12/09/19 08:22 Dose: 75 mg Documented by: Cyanocobalamin (Vitamin B-12) 1,000 mcg PO [facility] Stop: 01/06/20 21:39 Last Admin: 12/08/19 20:57 Dose: 1,000 mcg Documented by: Dextrose (Dextrose 50%) 25 - 50 ml IV UD PRN; Protocol PRN Reason: Hypoglycemia Protocol Stop: 01/06/20 21:39 Enoxaparin Sodium (Lovenox) 40 mg SQ DAILY@2100 [facility] Stop: 01/07/20 20:59 Last Admin: 12/08/19 20:55 Dose: 40 mg Documented by: Fluoxetine HCl (Prozac) 60 mg PO [facility] Stop: 01/07/20 08:59 Last Admin: 12/09/19 08:22 Dose: 60 mg Documented by: Gadobutrol (Gadavist 65ml) 9 ml IV ONCE PRN PRN Reason: Interaction Checking Stop: 12/11/19 23:23 Last Admin: 12/07/19 23:24 Dose: 9 ml Documented by: Glucagon (Glucagen) 1 mg SQ UD PRN; Protocol PRN Reason: Hypoglycemia Protocol Stop: 01/06/20 21:39 Glucose (Dex4 Glucose) 4 - 8 tabs PO UD PRN; Protocol PRN Reason: Hypoglycemia Protocol Stop: 01/06/20 21:39 Glucose (Glucose 40%) 15 - 30 gm PO UD PRN; Protocol PRN Reason: Hypoglycemia Protocol Stop: 01/06/20 21:39 Cefazolin Sodium (Ancef 2000mg) 2,000 mg in 15 mls @ 3.75 mls/min IV PREOP ELISHA; Protocol Stop: 12/11/19 05:59 Insulin Aspart (Novolog Flexpen) 0 units SC ACHS [facility] Stop: 01/06/20 21:39 Last Admin: 12/09/19 12:21 Dose: 1 units Documented by: Insulin Glargine (Lantus Solostar Pen) 9 units SC BID [facility] Stop: 01/06/20 21:39 Last Admin: 12/09/19 08:21 Dose: 9 units Documented by: Ioversol (Optiray 320 125ml) 120 ml IV ONCE PRN PRN Reason: Interaction Checking Stop: 12/11/19 22:36 Last Admin: 12/07/19 22:37 Dose: 120 ml Documented by: [facility]rozole ([facility]ara) [facility]: 01/07/20 08:59 Last Admin: 12/09/19 08:21 Dose: 2.5 mg Documented by: Levothyroxine Sodium (Synthroid) 150 mcg PO DAILYBB [facility] Stop: 01/07/20 06:29 Last Admin: 12/09/19 05:12 Dose: 150 mcg Documented by: Lisinopril (Zestril) 2.5 mg PO QAM [facility] Stop: 01/07/20 08:59 Last Admin: 12/09/19 08:22 Dose: 2.5 mg Documented by: Miscellaneous (Carbohydrates For Hypoglycemia) 15 - 30 gm PO UD PRN PRN Reason: Hypoglycemia Protocol Stop: 01/06/20 21:39 Miscellaneous Information (Pharmacist Discharge Med Rec Consult) 1 ea N/A UD PRN PRN Reason: Consult Stop: 01/06/20 21:39 Oxybutynin Chloride (Ditropan Xl) 10 mg PO QAM [facility] Stop: 01/07/20 08:59 Last Admin: 12/09/19 08:22 Dose: 10 mg Documented by: Pentoxifylline (Trental) 400 mg PO BID [facility] Stop: 01/06/20 21:39 Last Admin: 12/09/19 08:22 Dose: 400 mg Documented by: Tramadol HCl (Ultram) 50 mg PO BID [facility] Stop: 01/07/20 08:59 Last Admin: 12/09/19 08:24 Dose: 50 mg Documented by: Vitamin D (Vitamin D3) 4,000 units PO QAM [facility] Stop: 01/07/20 08:59 Last Admin: 12/09/19 08:21 Dose: 4,000 units Documented by: Vitamin D (Vitamin D3) 1,000 units PO QPM [facility] Stop: 01/06/20 21:39 Last Admin: 12/08/19 20:58 Dose: 1,000 units Documented by: PG Care Time/CCT Total # of Minutes Spent Total Time Spent with Patient: Total time spent is greater than 50% in coordination of care (as documented) at patient's floor/unit and/or counseling patient: Coding Level of Care Code 64591 Subseq Hosp Care Lvl 2 Diagnoses Stroke due to embolism of carotid artery I63.139 Right upper extremity numbness R20.0 Type 2 diabetes mellitus E11.9 Hyperlipidemia E78.5 Hypertension I10 Carotid artery stenosis I65.29 Depression F32.9
--- NOTE | 2019-12-09 16:55 | XRay Report ---
XR ankle RT min 3V routine CLINICAL HISTORY: Right ankle pain and swelling. Fall. COMPARISON: None FINDINGS: Note is made of an acute oblique minimally displaced fracture that extends from the distal shaft of the right fibula to the level the tibiotalar joint. This extends 6.3 cm proximally from the level of the tibiotalar joint. There is also an acute nondisplaced fracture of the medial malleolus. No posterior tibial fracture is noted. There is at most minimal widening of the medial ankle mortise . Ankle soft tissue swelling is present. IMPRESSION: 1. Acute oblique minimally displaced distal right fibular fracture and acute nondisplaced fracture of the medial malleolus. 2. Equivocal minimal medial ankle mortise widening. ACT 112: Negative or not required by law. Electronically signed by: Ismael Darling M.D. 12/09/2019 4:53 PM
[2019-12-09] MEDS: IBUPROFEN 600 MG TAB PO PRN (17:22)
--- NOTE | 2019-12-09 18:39 | Anesthesiology Consultation ---
Date of Service December 09, 2019 Assessment & Plan (1) Encounter for pre-operative examination: Chart Review Chart Review: Acceptable Risk for Surgery and Patient NOT seen in Pre Admission Testing COVID-19 ROUTINE PREOP SCREENING TEST FROM 12/09/2019 WAS NEGATIVE. Consults Requested none History Surgery Operation Date: 12/10/19 12:35 Proposed Procedures p Left Carotid Endarterectomy - Dev Sears MD Height/Weight Height: 5 ft 6 in Weight: 94.6 kg Allergies Allergy/AdvReac Type Severity Reaction Status Date / Time coffee (Coffea arabica) Allergy Severe TONGUE Verified 12/07/19 18:43 SWELLING,HIVES-COFFEE BEANS No Known Drug Allergies Allergy Unknown Verified 12/08/19 12:01 magnesium salicylate AdvReac Mild migraines-M Verified 12/07/19 18:43 SG lactose AdvReac Unknown INTOLERANT Verified 12/07/19 18:43 WITH MILK PRODUCTS Medications Home Medications Medication Instructions Recorded Confirmed Last Taken aspirin 81 mg PO QAM 07/24/18 12/07/19 12/07/19 atorvastatin 40 mg PO QAM 07/24/18 12/07/19 12/07/19 cholecalciferol (vitamin D3) 4,000 unit PO QAM 07/24/18 12/07/19 12/07/19 fluoxetine 60 mg PO QAM 07/24/18 12/07/19 12/07/19 glipizide 2.5 mg PO QAM 07/24/18 12/07/19 12/07/19 letrozole 2.5 mg PO QAM 07/24/18 12/07/19 12/07/19 levothyroxine 150 mcg PO QAM 07/24/18 12/07/19 12/07/19 lisinopril 2.5 mg PO QAM 07/24/18 12/07/19 12/07/19 metformin 1,000 mg PO HS 07/24/18 12/07/19 12/07/19 oxybutynin chloride 10 mg PO QAM 07/24/18 12/07/19 12/07/19 pentoxifylline 1 tab PO BID 07/24/18 12/07/19 12/07/19 empagliflozin 10 mg tablet 10 mg PO QAM 03/09/19 12/07/19 12/07/19 Probiotic 3,000 mmu cells PO QAM 07/30/19 12/07/19 12/07/19 cholecalciferol (vitamin D3) 25 mcg PO QPM 07/30/19 12/07/19 12/07/19 [Vitamin D3] cyanocobalamin (vitamin B-12) 1,000 mcg PO HS 07/30/19 12/07/19 12/07/19 ibuprofen [Motrin IB] 600 mg PO Q6H PRN 07/30/19 12/07/19 12/07/19 tramadol 50 mg PO BID 12/07/19 12/07/19 12/07/19 Active Medications Generic Name Dose Route Start Last Admin Trade Name Freq PRN Reason Stop Dose Admin Aspirin 81 mg 12/08/19 09:00 12/09/19 08:22 Ecotrin Ectab PO 01/07/20 08:59 81 mg QAM ELISHA Administration Atorvastatin Calcium 80 mg 12/09/19 09:00 12/09/19 08:22 Lipitor PO 01/08/20 08:59 80 mg QAM ELISHA Administration Clopidogrel Bisulfate 75 mg 12/08/19 13:00 12/09/19 08:22 Plavix PO 01/07/20 12:59 75 mg QAM ELISHA Administration Cyanocobalamin 1,000 mcg 12/07/19 21:40 12/08/19 20:57 Vitamin B-12 PO 01/06/20 21:39 1,000 mcg HS ELISHA Administration Enoxaparin Sodium 40 mg 12/08/19 21:00 12/08/19 20:55 Lovenox SQ 01/07/20 20:59 40 mg DAILY@2100 ELISHA Administration Fluoxetine HCl 60 mg 12/08/19 09:00 12/09/19 08:22 Prozac PO 01/07/20 08:59 60 mg QAM ELISHA Administration Gadobutrol 9 ml 12/07/19 23:24 12/07/19 23:24 Gadavist 65ml IV 12/11/19 23:23 9 ml ONCE PRN Administration Interaction Checking Ibuprofen 600 mg 12/09/19 16:00 12/09/19 17:22 Motrin PO 01/08/20 15:59 600 mg Q6H PRN Administration Pain Insulin Aspart 0 units 12/07/19 21:40 12/09/19 17:23 Novolog Flexpen SC 01/06/20 21:39 3 units ACHS ELISHA Administration Insulin Glargine 9 units 12/07/19 21:40 12/09/19 08:21 Lantus Solostar Pen SC 01/06/20 21:39 9 units BID ELISHA Administration Ioversol 120 ml 12/07/19 22:37 12/07/19 22:37 Optiray 320 125ml IV 12/11/19 22:36 120 ml ONCE PRN Administration Interaction Checking Letrozole 2.5 mg 12/08/19 09:00 12/09/19 08:21 Femara PO 01/07/20 08:59 2.5 mg QAM ELISHA Administration Levothyroxine Sodium 150 mcg 12/08/19 06:30 12/09/19 05:12 Synthroid PO 01/07/20 06:29 150 mcg DAILYBB ELISHA Administration Lisinopril 2.5 mg 12/08/19 09:00 12/09/19 08:22 Zestril PO 01/07/20 08:59 2.5 mg QAM ELISHA Administration Oxybutynin Chloride 10 mg 12/08/19 09:00 12/09/19 08:22 Ditropan Xl PO 01/07/20 08:59 10 mg QAM ELISHA Administration Pentoxifylline 400 mg 12/07/19 21:40 12/09/19 08:22 Trental PO 01/06/20 21:39 400 mg BID ELISHA Administration Tramadol HCl 50 mg 12/08/19 09:00 12/09/19 08:24 Ultram PO 01/07/20 08:59 50 mg BID ELISHA Administration Vitamin D 4,000 units 12/08/19 09:00 12/09/19 08:21 Vitamin D3 PO 01/07/20 08:59 4,000 units QAM ELISHA Administration Vitamin D 1,000 units 12/07/19 21:40 12/08/19 20:58 Vitamin D3 PO 01/06/20 21:39 1,000 units QPM ELISHA Administration Past Medical History Medical History (Updated 12/09/19 @ 18:39 by Yohan Plata MD) Arthritis LEFT HAND Breast cancer (Chronic 04/17/16) "Abnormal right breast mammogram 04/17/2016 Status post stereotactic guided biopsy of the right breast 05/27/2016 revealing microinvasive ductal carcinoma Status post right partial mastectomy and sentinel lymph node biopsy 06/21/2016 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 Status post completion of radiation therapy 08/02/2016 received 3850 cGy utilizing accelerated partial breast treatment" Breast cancer RIGHT-05/2016 Carotid artery stenosis Acute left hemispheric infarcts likely due to embolism from L ICA (90% proximal stenosis). CVA (cerebral vascular accident) Depression Hyperlipidemia Hypertension Hypothyroid Migraine HX Peripheral artery disease (Chronic) Right upper extremity numbness Thyroid nodule RADIATION TX Type 2 diabetes mellitus (Chronic) 12/07/2019: Patient presented to ER s/p fall and with s/s concerning for stroke/TIA. Patient was outside TPA window. Past Family History Family History Mother Family hx of colon cancer Other Cancer Diabetes Lung disease Past Surgical History Surgical History History of cataract surgery R/L History of colonoscopy X MULTIPLE Hx of lumpectomy 2015 WITH NODE EXCISION-RADIATION/NO CHEMO Social History Smoking Status: Never smoker Do You Dip or Chew Tobacco: No Hx Alcohol Use: No Hx Substance Use: No Physical Exam Vital Signs Last Vital Signs Temp 36.9 C 12/09/19 15:23 Pulse 71 12/09/19 16:27 Resp 21 12/09/19 15:23 BP 121/75 12/09/19 15:23 Pulse Ox 95 12/09/19 15:23 Testing Laboratory Results 12/09/19 05:47 12/09/19 05:47 PT 10.4 Seconds (9.0-12.0) 12/08/19 06:00 INR 1.0 (0.9-1.1) 12/08/19 06:00 Hemoglobin A1c 7.9 % (4.5-5.6) H 12/07/19 17:42 Urine Color Yellow 12/08/19 05:25 Urine Appearance Clear (Clear) 12/08/19 05:25 Urine pH 7.0 (4.5-7.5) 12/08/19 05:25 Ur Specific Peck 1.024 (1.000-1.030) 12/08/19 05:25 Urine Protein Negative (Negative) 12/08/19 05:25 Urine Glucose (UA) 3+ (Negative) H 12/08/19 05:25 Urine Ketones Negative (Negative) 12/08/19 05:25 Urine Nitrite Negative (Negative) 12/08/19 05:25 Ur Leukocyte Esterase Negative (Negative) 12/08/19 05:25 Blood Type O Positive 12/09/19 09:37 Antibody Screen NEGATIVE 12/09/19 09:37 12/09/19 12/09/19 12/09/19 16:22 11:29 07:44 POC Glucose 176 H 159 H 151 H Electrocardiogram Date: 12/07/19 Findings: + NSR @ (94) Poor data quality, interpretation may be adversely affected Normal sinus rhythm Left axis deviation Low voltage QRS Cannot rule out Anterior infarct , age undetermined Abnormal ECG When compared with ECG of 24-JUL-2018 20:33, Minimal criteria for Anterior infarct are now Present Confirmed by Phong Chen ([id number]) on 12/08/2019 10:09:14 PM Chest X-Ray Date: 12/07/19 XR chest 1V portable HISTORY: weakness COMPARISON: Chest 10 03/05/2006. FINDINGS: Patchy left basilar densities. The heart is mildly enlarged. There are low lung volumes. No evidence for pulmonary edema. No pleural effusions. No pneumothorax. IMPRESSION: Patchy left basilar densities. This may represent atelectasis or pneumonia. Echocardiogram Date: 12/08/19 Normal LV size and function. EF 60-65%. No RWMA. Mild LVH. No significant valvular abnormalities visualized. No ASD. Other Testing Brain MRI 12/07/2019: MRI OF THE BRAIN WITHOUT AND WITH IV CONTRAST CLINICAL HISTORY: expressive aphasia, R upper extremity numbness COMPARISON STUDY: Head CT and CTA of the head December 07, 2019. TECHNIQUE: Utilizing a 1.5 Cookie magnet and dedicated coil, multiplanar, multiecho imaging of the brain was performed pre and postcontrast administrat ion. IV administration of 9 mL of Gadavist contrast was uneventful. FINDINGS: There are several small foci of acute infarction within the left centrum semiovale ovale and left parietal and temporal lobes. There is no mass effect or hemorrhage. Ventricular system is unremarkable. The basilar cisterns are patent. There is no intracranial mass or pathologic enhancement. Calvarial signal is normal. An old infarct within left cerebellar hemisphere is noted. White matter T2 hyperintense foci suggest small vessel disease. Orbits are unremarkable. Note is made of moderate atrophy. IMPRESSION: Several small acute infarcts within the left centrum semiovale ovale and left parietal and temporal lobes. No mass effect or hemorrhage.
[2019-12-09] MEDS: CYANOCOBALAMIN 500 MCG TABLET (VITAMIN B-12) PO SCH (20:18)
--- NOTE | 2019-12-10 00:09 | Consultation Report ---
DATE OF CONSULTATION: 12/09/2019 ORTHOPEDIC CONSULTATION CHIEF COMPLAINT: Right ankle pain. HISTORY OF PRESENT ILLNESS: The patient is a 74-year-old female with a medical history significant for type 2 diabetes, hypothyroidism, hypertension and a history of breast cancer who sustained a stroke 2 days ago on 12/07/2019. She reports she was sitting in her chair and lean forward and then next thing she knew she was on the ground. She was able to call and get help from a friend. Ambulance brought her to the hospital. She was admitted to the hospital. She was not given TPA. She has had some right sided symptoms as a result of her stroke including numbness in both the upper and lower extremities as well as some expressive aphasia. This has reportedly been improving. She was worked up by Dr. Sears, our vascular surgeon and was found to be a candidate for a carotid endarterectomy and is on the schedule to have this surgical procedure performed tomorrow. While ambulating in the hospital the last few days she has had trouble putting any weight down on her right lower extremity. This pain has worsened as her sensation has improved and she reported to nursing today that she was unable to put any weight down or get out of bed because of her right ankle. X-rays were obtained and orthopedics was consulted after an ankle fracture was discovered. PAST MEDICAL HISTORY, PAST SURGICAL HISTORY, MEDICATIONS, ALLERGIES, SOCIAL HISTORY AND FAMILY HISTORY, 14-POINT REVIEW OF SYSTEMS: They are all reviewed in the chart. The patient did sign her own consent form for her vascular surgery of carotid endarterectomy scheduled for tomorrow. PHYSICAL EXAMINATION: GENERAL: She is a pleasant female resting in bed in no acute distress. NEUROLOGIC: Reveals her to have some difficulty finding words and very small amounts of garbled speech, but otherwise she is easy to understand. Mood and affect are appropriate. Right ankle exam reveals moderate amount of swelling over the medial and lateral aspects of the ankle. She is tender to palpation over both the medial and lateral malleolus. She has no tenderness proximally by her knee. She has a negative squeeze test. She is exquisitely tender over the syndesmosis. She has a globally decreased sensation to light touch below her right knee. She reports that she has never been told that she has peripheral neuropathy, although she does get checked for this once a year. This loss of sensation is asymmetric right compared to left and therefore is likely a result of her recent stroke. She is able to detect light touch only faintly on the right. She has a palpable dorsalis pedis and posterior tibial pulses. She fires EHL, FHL, tib ant, gastrocsoleus. No skin lesions. RESULTS: Reviewed. X-rays done earlier today, 3 views of the right ankle demonstrate a high oblique fibula fracture, Mann C variety with minimal displacement. She has a nondisplaced medial malleolus fracture. There does appear to be some subtle medial clear space widening seen on the mortise view. IMPRESSION: Right unstable ankle fracture in a 74-year-old female with a stroke 2 days ago with some residual right-sided numbness. PLAN: I reviewed the diagnosis with the patient. Surgical and nonsurgical options were discussed. I am recommending surgical management because cast immobilization would mean 6 weeks of nonweightbearing and carries a significant risk for cast related problems such as a skin ulcers due to her impaired sensation. With surgery we will more than likely be able to allow her to begin weightbearing 2 weeks after surgery as well as keep her in a removable boot which would allow us to do skin checks. She would, however, need to be nonweightbearing for at least 2 weeks after surgery. After reviewing all the risks and benefits of surgery, alternatives to surgery and expected outcome, she elected to proceed. All questions were answered. Informed consent was signed. I will speak with Dr. Sears about possibly following him in the operating room tomorrow. She is already n.p.o. after midnight tonight. Finally, I placed her into a well-padded posterior and U plaster slab splint. She will elevate her right foot overnight and is nonweightbearing on the right lower extremity. RAMSES
[2019-12-10 05:50] LABS: Basophils # (auto) 0.03 K/uL (0-0.2); Basophils % (auto) 0.3 %; Eosinophils # (auto) 0.16 K/uL (0-0.5); Eosinophils % (auto) 1.7 %; Hematocrit (blood only) 41.9 % (37-47); Hemoglobin 13.7 g/dL (12.0-16.0); Immature Granulocytes # (auto) 0.04 K/uL (0.00-0.02); Immature Granulocytes % (auto) 0.4 %; Lymphocytes # (auto) 1.63 K/uL (1.2-3.4); Lymphocytes % (auto) 17.5 %; Mean Corpuscular Hemoglobin 31.9 pg (25-34); Mean Corpuscular Hgb Conc 32.7 g/dL (32-36); Mean Corpuscular Volume 97.4 fL (80-100); Mean Platelet Volume 9.7 fL (7.4-10.4); Monocytes # (auto) 0.79 K/uL (0.11-0.59); Monocytes % (auto) 8.5 %; Neutrophils # (auto) 6.65 K/uL (1.4-6.5); Neutrophils % (auto) 71.6 %; Platelet Count 259 K/uL (130-400); RDW Coefficient of Variation 12.4 % (11.5-14.5); RDW Standard Deviation 43.8 fL (36.4-46.3)
[2019-12-10] MEDS ORDERED: CEFAZOLIN 2000MG 2,000 MG/15 ML SYR IV SCH (06:00)
[2019-12-10] MEDS: LEVOTHYROXINE SODIUM 150 MCG TABLET PO SCH (06:15)
[2019-12-10 06:24] LABS: BUN Creatinine Ratio 19.4 (10-20); Creatinine Clr Calc Pharmacy 35.4 ml/min; Est GFR (African American) 35.6; Est GFR (Non-African American) 30.7; Potassium 4.5 mmol/L (3.5-5.1)
[2019-12-10] MEDS: OXYBUTYNIN CHLORIDE XL 5 MG TABCR PO SCH (08:16)
[2019-12-10] MEDS: LETROZOLE 2.5 MG TAB PO SCH (08:16)
[2019-12-10] MEDS: FLUOXETINE HCL 20 MG CAP PO SCH (08:16)
[2019-12-10] MEDS: ATORVASTATIN 40 MG TAB PO SCH (08:17)
[2019-12-10] MEDS: CHOLECALCIFEROL 1,000 UNITS 25 MCG TAB PO SCH ×2 (08:18→20:50)
[2019-12-10] MEDS: TRAMADOL HCL 50 MG TABLET PO SCH ×2 (08:58→20:52)
--- NOTE | 2019-12-10 09:25 | History & Physical Bridge Note ---
Date of Service December 10, 2019 History & Physical Bridge Note Patient for a left carotid endarterectomy today. I have discussed the risks options and benefits of the procedure with the patient. The patient understands the risks options and benefits and agrees to the procedure. I have examined the patient, reviewed the History & Physical and in the interval since the performance of the History & Physical I have noted the following changes of clinical significance: no changes noted
[2019-12-10] MEDS: INSULIN GLARGINE SOLOSTAR 100 UNITS/ML 3 ML PEN SC SCH ×2 (11:27→21:05)
[2019-12-10] MEDS: ASPIRIN 81 MG ECTAB PO SCH (11:27)
[2019-12-10] MEDS: INSULIN ASPART 100 UNITS/ML 3 ML PEN SC SCH ×4 (11:27→21:05)
[2019-12-10] MEDS: CLOPIDOGREL BISULFATE 75 MG TAB PO SCH (11:27)
[2019-12-10] MEDS: PENTOXIFYLLINE 400MG EXT REL TAB PO SCH ×2 (11:28→20:48)
[2019-12-10] MEDS ORDERED: ROCURONIUM BROMIDE 10 MG/ML 5 ML VIAL IV ONE (12:23)
[2019-12-10] MEDS ORDERED: PROPOFOL IV EMULSION 10 MG/ML 20 ML VIAL IV ONE (12:23)
[2019-12-10] MEDS ORDERED: MIDAZOLAM HCL 1 MG/ML 2ML VIAL ONE (12:23)
[2019-12-10] MEDS ORDERED: fentaNYL citrate 100 MCG/2 ML VIAL ONE (12:23)
[2019-12-10] MEDS ORDERED: ONDANSETRON INJ 2 MG/ML 2 ML VIAL ONE (12:23)
[2019-12-10] MEDS ORDERED: LIDOCAINE HCL 2% 2 ML VIAL/AMP(20MG/ML) INFIL ONE (12:23)
[2019-12-10] MEDS ORDERED: HEPARIN (PORCINE) 1000 UNIT/ML 10 ML (CATH LAB USE ONLY) ONE (12:26)
[2019-12-10] MEDS ORDERED: THROMBIN FOR SOLN 20000 UNIT KIT ONE (12:27)
[2019-12-10] MEDS ORDERED: GELATIN SPONGE SZ 100 ONE (12:27)
[2019-12-10] MEDS ORDERED: CEFAZOLIN 250 MG/ML 1 GM VIAL ONE (12:27)
[2019-12-10] MEDS ORDERED: LIDOCAINE HCL 1% 20 ML VIAL ONE (12:27)
[2019-12-10] MEDS ORDERED: BUPIVACAINE 0.5 % 5 MG/1 ML MPF 30ML VIAL ONE (12:28)
[2019-12-10] MEDS ORDERED: EPINEPHrine INJ 1 MG/ML AMP ONE (12:28)
--- NOTE | 2019-12-10 12:39 | Orthopedic Progress Note ---
Date of Service December 10, 2019 Assessment & Plan (1) Fracture of ankle, bimalleolar, right, closed: Will plan for ORIF R ankle fracture Friday afternoon. Continue splint, NWB on RLE and elevation until then. NPO after midnight Friday. Present on Admission?: Yes Admission and Anticipated Discharge Date Admission Date: December 07, 2019 Subjective Patient reports the splint is fitting her well. Pain well controlled in her ankle. Was seen by Dr. Griffin from anesthesia this morning. His recommendation was to do the ankle surgery at a later date, and not after the carotid endarterectomy today. Physical Exam Physical Exam: General: improved aphasia today. R foot: splint fitting well. Toes w/wp. Wiggles toes. SILT over the toes, albeit diminished. Results & Data ([facility]) Vital Signs (Past 12 Hours) Vital Signs Temp Pulse Pulse Resp BP Pulse Ox 12/10/19 12:00 36.7 C 69 20 114/67 97 12/10/19 11:49 36.8 C 67 16 127/67 92 12/10/19 07:26 36.5 C 64 16 110/72 93 12/10/19 06:26 36.5 C 61 14 108/65 93 12/10/19 03:45 36.8 C 59 L 16 102/48 L 99
--- NOTE | 2019-12-10 14:52 | Operative Report ---
Post Operative Report Pre & Post Diagnosis Operation Date: 12/10/19 12:35 Pre-Op Diagnosis: left carotid stenosis, symptomatic Post-Op Diagnosis: left carotid stenosis, symptomatic Operation Date: 12/13/19 07:00 <No data on this case meets the specified criteria> I identified the patient and participated in the time-out.: Yes Procedure Operation Date: 12/10/19 12:35 Actual Procedures p Left Carotid Endarterectomy with bovine patch (Left) - Dev Sears MD Operation Date: 12/13/19 07:00 <No data on this case meets the specified criteria> Surgeon Dev Sears MD Baggagemaster Kenny,PAC Estimated Blood Loss 50 Findings Consistent with Post-Op Diagnosis Specimens Left carotid plaque Anesthesia Type General Complications none Disposition Accompanied Patient To Recovery: No Disposition: Recovery Room Indications This is a 74-year-old female who came in with a cerebrovascular accident involving her right hand and speech. She was found to have severe stenosis of the left internal carotid artery. Today she claims that her hand is normal and her speech is almost back to normal. Endarterectomy was recommended. I have discussed the risks options and benefits of the procedure with the patient. The patient understands the risks options and benefits and agrees to the procedure. Description of Procedure The patient was taken to the operating room and placed in supine position. After general anesthesia was accomplished the left side of the neck was prepped and draped in a sterile manner. The patient was identified and a timeout performed. A longitudinal neck incision was then made coursing along the medial border of the sternocleidomastoid muscle. The incision was taken down through the platysmal layer. The facial vein was identified, ligated, and divided. The common carotid artery was then seen. It was dissected free down to the omohyoid muscle. The dissection was carried upward until the external carotid artery and superior thyroid artery was seen. The superior thyroid artery was slung with a 2-0 silk suture. The external carotid was slung with a red rubber vessel loop. Next the dissection was carried up along the internal carotid artery. This was carried upward to beyond the area of narrowing. The hypoglossal nerve was seen and preserved. The patient was heparinized. After adequate heparinization was accomplished, the internal, external, and common carotid arteries were clamped. A longitudinal arteriotomy was started on the common carotid artery and extended upward along the internal carotid artery to a point beyond the area of narrowing. There was calcified plaque of the internal carotid artery origin causing approximately 85-90% narrowing with subacute hemorrhage and thrombus present. A Doppler shunt was then placed in the internal, followed by the common carotid artery and held in place with Maxi clamps. There was good back bleeding seen from the internal carotid artery. The endarterectomy was then started in the appropriate plane on the common carotid artery. This was carried upward and the external carotid was everted and endarterectomized. The endarterectomy was then carried up along the internal carotid artery till a nice feathering breakoff point was accomplished beyond the end of the plaque. The endarterectomy was then carried down further on the common carotid artery. At end of the arteriotomy, the plaque was then transected. Under loop magnification, all loose debris and flaps werer removed. There is no distal flap seen at the end of the endarterectomy site. The arteriotomy then closed using an Accuseal patch and a running CV 6 [place]armad suture. This was done in the usual vascular fashion. Prior to completing the closure, the doppler shunt was removed and the internal and common carotid arteries were reclamped. Backbleeding and forward bleeding was allowed to occur. The flow surface was irrigated with heparinized saline. The final few sutures were then placed and securely tied. Clamps were then removed off the external and common carotid arteries. The clamp was then removed the internal carotid artery. Good distal flow was seen. Adequate hemostasis was seen of the patch. The wound was inspected and adequate hemostasis was obtained. The wound was irrigated with antibiotic solution. It was then closed with a running 3-0 Vicryl suture for the platysmal layer and a 4-0 subcuticular Vicryl suture for the skin edges. Dermabond was used for dressing. The patient left the operation room in satisfactory condition and tolerated the procedure well. All needle and sponge counts were correct at the end of the procedure. Liliana Real Pac assisted due to lack of resident availability and was necessary for prepping, draping, retraction, wound closure defects, subQ and skin closure and was necessary for the case. I attest to the content of the Intraoperative Record and any orders documented therein. Any exceptions are noted below.
[2019-12-10] MEDS ORDERED: PHENYLEPHRINE HCL 10 MG/ML VIAL ONE (15:30)
[2019-12-10] MEDS ORDERED: NEOSTIGMINE METHYLSULFATE 5 MG/5 ML SYR ONE (15:30)
[2019-12-10] MEDS ORDERED: GLYCOPYRROLATE 0.2 MG/ML VIAL ONE (15:30)
[2019-12-10] MEDS ORDERED: ePHEDrine sulfate 50 MG/ML AMP ONE (15:33)
[2019-12-10] MEDS ORDERED: STAT IV Infusion **Titration per Protocol STA (16:16)
--- NOTE | 2019-12-10 16:19 | Hospitalist Progress Note ---
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 Sears transfer to ICU post op for management, close monitoring (2) Right upper extremity numbness: due to stroke, MRI brain shows left parietal and temporal lobe scattered strokes symptoms improved/resolved today consult PT/OT to work with patient (3) Type 2 diabetes mellitus: hold oral agents diabetic diet Novolog monitor for hypoglycemia, no episodes (4) Hyperlipidemia: increase Lipitor from 40mg to 80mg due to stroke and severe/critical stenosis (5) Hypertension: BP control with Lisinopril (6) Carotid artery stenosis: bilateral, left is severe/critical with 90% and stroke on left side right is moderate to severe, no need for intervention at this time s/p left CEA on 12/10/[address] Sears (7) Depression: on Prozac Prozac interacts with Plavix, decreases the effectiveness of the Plavix would recommend changing SSRI as outpatient, would require taper off of Prozac will defer to PCP, for now will continue mood is stable (8) Fracture of ankle, bimalleolar, right, closed: never c/o pain on day one, then had pain and swelling and could not walk on day 2 of admission ankle clearly swollen and tender with decreased ROM Right ankle x-ray shows minimally displaced distal fibula fracture and medial malleolus fracture place in splint, elevate, ice, non-weight bearing consult orthopedic surgery, plan for OR on Tuesday 12/12 for ORIF Admission and Anticipated Discharge Date Admission Date: December 07, 2019 Subjective patient with left CEA today with Dr. Sears, went well blood pressures a little soft after surgery, requiring some Neosynephrine, fluids discussed with ICU, she will be moved to ICU post op for assistance in management appreciate note from ortho, will plan for right ankle ORIF on Friday reviewed labs, Cr is 1.6, electrolytes stable Review of Systems Review of Systems: All systems reviewed & are unremarkable except as noted in HPI & below Physical Exam Constitutional: WD/WN, vitals as above + overweight Eyes: PERRL, conjunctivae normal, anicteric sclerae ENMT: external ear and nose normal, oropharynx normal Neck: trachea midline, no thyromegaly Respiratory: normal respiratory effort, lungs clear to auscultation Cardiovascular: RRR, no murmur, no edema Gastrointestinal (Abdomen): normal bowel sounds, soft, nontender, no hepatosplenomegaly Musculoskeletal: no cyanosis or clubbing, extremities motor strength 5/5 Ankle: + ankle abnormal to inspection (right ankle swollen, tender, decreased R OM), + effusion (right ankle) and + ecchymosis (right ankle) Skin: no rashes, warm and dry Neurologic: patellar DTR's 2+ bilat, sensation intact and PERRL, EOMI, accommodation nl, no face palsy, no dysarthria Psychiatric: A+Ox3, euthymic affect Lymphatic: no cervical or axillary lymphadenopathy Results & Data Results & Data ([facility]) Vital Signs (Past 12 Hours) Vital Signs Temp Pulse Pulse Pulse Resp BP BP 12/10/19 16:15 50 L 15 81/38 L 93/43 L 12/10/19 16:05 36.7 C 49 L 16 89/38 L 96/43 L 12/10/19 15:57 46 L 15 103/42 L 108/48 L 12/10/19 15:55 52 L 19 99/42 L 99/47 L 12/10/19 15:45 49 L 15 103/49 L 102/43 L 12/10/19 15:35 44 L 17 103/49 L 97/43 L 12/10/19 15:25 48 L 16 88/43 L 12/10/19 15:17 36.2 C L 48 L 14 100/56 L 12/10/19 12:00 36.7 C 69 20 114/67 12/10/19 11:49 36.8 C 67 16 127/67 12/10/19 07:26 36.5 C 64 16 110/72 12/10/19 06:26 36.5 C 61 14 108/65 Pulse Ox 12/10/19 16:15 96 12/10/19 16:05 96 12/10/19 15:57 97 12/10/19 15:55 97 12/10/19 15:45 97 12/10/19 15:35 99 12/10/19 15:25 99 12/10/19 15:17 100 12/10/19 12:00 97 12/10/19 11:49 92 12/10/19 07:26 93 12/10/19 06:26 93 Laboratory Results Laboratory Results - last 24 hr 12/09/19 12/09/19 12/09/19 05:47 05:47 16:22 WBC RBC Hgb Hct MCV MCH MCHC RDW Std Deviation RDW Coeff of Slim Plt Count MPV Immature Gran % (Auto) Neut % (Auto) Lymph % (Auto) Jackson % (Auto) Eos % (Auto) Baso % (Auto) Immature Gran # (Auto) Neut # (Auto) Lymph # (Auto) Jackson # (Auto) Eos # (Auto) Baso # (Auto) ESR 42 H Sodium Potassium Chloride Carbon Dioxide Anion Gap BUN Creatinine Est Cr Clr Drug Dosing Est GFR ( Amer) Est GFR (Non-Af Amer) BUN/Creatinine Ratio Glucose POC Glucose 176 H Uric Acid 6.6 Calcium 12/09/19 12/10/19 12/10/19 20:45 05:40 05:40 WBC 9.30 RBC 4.30 Hgb 13.7 Hct 41.9 MCV 97.4 MCH 31.9 MCHC 32.7 RDW Std Deviation 43.8 RDW Coeff of Slim 12.4 Plt Count 259 MPV 9.7 Immature Gran % (Auto) 0.4 Neut % (Auto) 71.6 Lymph % (Auto) 17.5 Jackson % (Auto) 8.5 Eos % (Auto) 1.7 Baso % (Auto) 0.3 Immature Gran # (Auto) 0.04 H Neut # (Auto) 6.65 H Lymph # (Auto) 1.63 Jackson # (Auto) 0.79 H Eos # (Auto) 0.16 Baso # (Auto) 0.03 ESR Sodium 137 Potassium 4.5 Chloride 106 Carbon Dioxide 25 Anion Gap 6.0 BUN 32 H Creatinine 1.64 H D Est Cr Clr Drug Dosing 35.4 Est GFR ( Amer) 35.6 Est GFR (Non-Af Amer) 30.7 BUN/Creatinine Ratio 19.4 Glucose 169 H POC Glucose 196 H Uric Acid Calcium 10.0 12/10/19 12/10/19 12/10/19 11:10 12:29 15:19 WBC RBC Hgb Hct MCV MCH MCHC RDW Std Deviation RDW Coeff of Slim Plt Count MPV Immature Gran % (Auto) Neut % (Auto) Lymph % (Auto) Jackson % (Auto) Eos % (Auto) Baso % (Auto) Immature Gran # (Auto) Neut # (Auto) Lymph # (Auto) Jackson # (Auto) Eos # (Auto) Baso # (Auto) ESR Sodium Potassium Chloride Carbon Dioxide Anion Gap BUN Creatinine Est Cr Clr Drug Dosing Est GFR ( Amer) Est GFR (Non-Af Amer) BUN/Creatinine Ratio Glucose POC Glucose 151 H 119 H 124 H Uric Acid Calcium Medications Administered Current Inpatient Medications Aspirin (Ecotrin Ectab) 81 [facility] Stop: 01/07/20 08:59 Last Admin: 12/10/19 11:27 Dose: Not Given Documented by: Atorvastatin Calcium (Lipitor) 80 mg PO [facility] Stop: 01/08/20 08:59 Last Admin: 12/10/19 08:17 Dose: 80 mg Documented by: Clopidogrel Bisulfate (Plavix) 75 mg PO [facility] Stop: 01/07/20 12:59 Last Admin: 12/10/19 11:27 Dose: Not Given Documented by: Cyanocobalamin (Vitamin B-12) 1,000 mcg PO [facility] Stop: 01/06/20 21:39 Last Admin: 12/09/19 20:18 Dose: 1,000 mcg Documented by: Dextrose (Dextrose 50%) 25 - 50 ml IV UD PRN; Protocol PRN Reason: Hypoglycemia Protocol Stop: 01/06/20 21:39 Enoxaparin Sodium (Lovenox) 40 mg SQ DAILY@2100 [facility] Stop: 01/07/20 20:59 Last Admin: 12/08/19 20:55 Dose: 40 mg Documented by: [facility]) [facility] [place]: 01/07/20 08:59 Last Admin: 12/10/19 08:16 Dose: 60 mg Documented by: Gadobutrol (Gadavist 65ml) 9 ml IV ONCE PRN PRN Reason: Interaction Checking Stop: 12/11/19 23:23 Last Admin: 12/07/19 23:24 Dose: 9 ml Documented by: Glucagon (Glucagen) 1 mg SQ UD PRN; Protocol PRN Reason: Hypoglycemia Protocol Stop: 01/06/20 21:39 Glucose (Dex4 Glucose) 4 - 8 tabs PO UD PRN; Protocol PRN Reason: Hypoglycemia Protocol Stop: 01/06/20 21:39 Glucose (Glucose 40%) 15 - 30 gm PO UD PRN; Protocol PRN Reason: Hypoglycemia Protocol Stop: 01/06/20 21:39 Cefazolin Sodium (Ancef 2000mg) 2,000 mg in 15 mls @ 3.75 mls/min IV PREOP ELISHA; Protocol Stop: 12/11/19 05:59 Last Admin: 12/10/19 12:53 Dose: 3.75 mls/min Documented by: Phenylephrine HCl 20 mg/ (Dextrose) 502 mls @ 72.815 mls/hr IV .Q6H54M [facility]; Protocol Stop: 01/09/20 16:29 Ibuprofen (Motrin) 600 mg PO Q6H PRN PRN Reason: Pain Stop: 01/08/20 15:59 Last Admin: 12/09/19 17:22 Dose: 600 mg Documented by: Insulin Aspart (Novolog Flexpen) 0 units SC ACHS [facility] Stop: 01/06/20 21:39 Last Admin: 12/10/19 11:58 Dose: Not Given Documented by: Insulin Glargine (Lantus Solostar Pen) 9 units SC BID [facility] Stop: 01/06/20 21:39 Last Admin: 12/10/19 11:27 Dose: Not Given Documented by: Ioversol (Optiray 320 125ml) 120 ml IV ONCE PRN PRN Reason: Interaction Checking Stop: 12/11/19 22:36 Last Admin: 12/07/19 22:37 Dose: 120 ml Documented by: Letrozole (Femara) [facility] [place]: 01/07/20 08:59 Last Admin: 12/10/19 08:16 Dose: 2.5 mg Documented by: [facility]othy[facility]ine [facility] ([facility]) [facility] Stop: 01/07/20 06:29 Last Admin: 12/10/19 06:15 Dose: 150 mcg Documented by: Lisinopril (Zestril) 2.5 [facility] [place]: 01/07/20 08:59 Last Admin: 12/10/19 08:17 Dose: 2.5 mg Documented by: Miscellaneous (Carbohydrates For Hypoglycemia) 15 - 30 gm PO UD PRN PRN Reason: Hypoglycemia Protocol Stop: 01/06/20 21:39 Oxybutynin Chloride (Ditropan Xl) 10 mg PO QAM [facility] Stop: 01/07/20 08:59 Last Admin: 12/10/19 08:16 Dose: 10 mg Documented by: Pentoxifylline (Trental) 400 mg PO BID [facility] Stop: 01/06/20 21:39 Last Admin: 12/10/19 11:28 Dose: Not Given Documented by: Tramadol HCl (Ultram) 50 mg PO BID [facility] Stop: 01/07/20 08:59 Last Admin: 12/10/19 08:58 Dose: 50 mg Documented by: Vitamin D (Vitamin D3) 4,000 units PO QAM [facility] Stop: 01/07/20 08:59 Last Admin: 12/10/19 08:18 Dose: 4,000 units Documented by: Vitamin D (Vitamin D3) 1,000 units PO QPM [facility] Stop: 01/06/20 21:39 Last Admin: 12/09/19 20:19 Dose: 1,000 units Documented by: PG Care Time/CCT Total # of Minutes Spent Total Time Spent with Patient: Total time spent is greater than 50% in coordination of care (as documented) at patient's floor/unit and/or counseling patient: Coding Level of Care Code 56647 Subseq Hosp Care Lvl 2 Diagnoses 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
[2019-12-10] MEDS: PHENYLEPHRINE HCL 20 MG in DEXTROSE 5% 500 ML IV SCH (16:32)
--- NOTE | 2019-12-10 17:01 | Critical Care Consultation ---
Date of Consultation December 10, 2019 Assessment & Plan (1) Admitted to intensive care unit: Reason Critically Ill: 74-year-old female who fell on 12/07/2019 and was admitted for acute CVA. She did not receive TPA. The patient was found to have an occlusive left carotid artery and underwent carotid endarterectomy today with Dr. Sears. Neuro - [facility]: Recent CVA with expressive aphasia which appears to be resolved. Patient alert and oriented x3 Aspirin 81 mg, atorvastatin 80 mg, clopidogrel 75 mg Cardiac - Patient with history of hypertension. Her medications include lisinopril 2.5 mg p.o. daily Patient somewhat hypotensive postoperatively Evaluate on arrival to ICU and manage appropriately Respiratory - Past medical history includes [id number] smoking history. Quit smoking in 2011 No shortness of breath, sputum production, hemoptysis Follow expectantly Supplemental O2 as needed to maintain SaO2 above 90% GI - Consider PPI for GI prophylaxis inasmuch as patient has significant stress with CVA, fracture, surgery RENAL/LYTES - Creatinine slightly elevated 1.64 Will gently hydrate with IV fluid inasmuch as patient has soft pressures postoperatively Follow serial labs - Rand catheter to gravity in place No ирина hematuria ENDO - Diabetes mellitus type 2 Hemoglobin A1c 7.9 Patient orally controlled at home Continue insulin while inpatient Follow BSG's before meals and at bedtime Hypothyroidism Continue levothyroxine HEME - Hemoglobin stable at 13.7 No evidence of acute blood loss Follow expectantly with serial labs ID - No elevation in white blood cells Afebrile No indication of infection LINES/IV ACCESS - Peripheral access No indication for central line Right radial arterial line is in place postoperatively DVT PROPHYLAXIS - Patient was receiving Lovenox 40 mg daily prior to today's carotid endarterectomy Patient with significant risk factors for DVT: Breast cancer on letrozole, right ankle fracture, vascular disease, decreased mobility Continue Lovenox if okay with Dr. Sears Thank you very much for including us in the care of this patient CCT: 45 minutes independent of any procedures Thank you for including us in the care of this patient. Please refer to Dr. Severino's addendum for further recommendations. (2) CVA (cerebral vascular accident): (3) Fall: (4) Type 2 diabetes mellitus: (5) Peripheral artery disease: (6) Fracture of ankle, bimalleolar, right, closed: (7) Hypertension: (8) Hyperlipidemia: Supervising Physician Co-Signing Physician Notes Patient seen and examined. Discussed with critical care CANDIDA and bedside ICU nilo shelton. Agree with assessment and plan as noted by critical care CANDIDA Patient minute to the ICU post carotid endarterectomy for critical carotid stenosis. Surgery was uneventful. Blood pressure was slightly soft postoperatively requiring intermittent Jamey-Synephrine which is currently being weaned to off. She is awake alert and conversant in no distress. Patient does have a right bimalleolar closed ankle fracture which will require ORIF on Friday. Given her fracture, immobilization, breast cancer she is at high risk for DVT and recommend aggressive DVT prophylaxis. Will defer to vascular surgery. We will observe in ICU overnight. Ultimate disposition per vascular surgery History of Present Illness Attending Physician: Alireza Chacon DO History of Present Illness Attending: Dr. Severino This is a 74-year-old female with a past medical history including hypertension, hyperlipidemia, TIA, dehydration, breast cancer, peripheral artery disease, type 2 diabetes mellitus. She has a [id number] history of cigarette smoking and quit in 2011. The patient was admitted on 12/07/2019 after having a fall. She reports that she was working from a seated position and dropped her mouse while working from her computer. She bent over to pick it up and realize she had fallen. She does not believe that she had any loss of consciousness. She noticed that her right arm was weak and she had clumsiness of the right hand. She also appeared to have some expressive aphasia based on report. An ambulance was dispatched to Mrs. Shah's home and she was transported to [facility] emergency department where she was evaluated and found to have a stroke. She was not found to be appropriate for TPA administration. Several small acute infarcts within the left centrum semiovale ovale and left parietal and temporal lobes were identified and MRI. No mass effect or hemorrhage. Severe stenosis of the proximal bilateral internal carotid arteries, more severe on the left. Approximate 90% stenosis of the proximal left internal carotid artery and 80% stenosis of the proximal right internal carotid artery. These were identified by CT angiography of the neck with contrast. She was taken to the operating theater today by Dr. Sears for left carotid endarterectomy. She did well during the procedure with no complications. In post op she was found to have some soft pressures and was receiving Jamey- Synephrine at the direction of the anesthesiologist. At the time my examination she denied any headache, chest pain, tightness, shortness of breath, lower extremity pain. She does feel like she has weakness in the right upper extremity and states that she feels like she does not have good control of the right upper arm. She has no difficulty with vision. There is no deviation of the tongue. She has no slurred speech. She has no other acute complaints. Allergies Allergy/AdvReac Type Severity Reaction Status Date / Time coffee (Coffea arabica) Allergy Severe TONGUE Verified 12/07/19 18:43 SWELLING,HIVES-COFFEE BEANS No Known Drug Allergies Allergy Unknown Verified 12/08/19 12:01 magnesium salicylate AdvReac Mild migraines-M Verified 12/07/19 18:43 SG lactose AdvReac Unknown INTOLERANT Verified 12/07/19 18:43 WITH MILK PRODUCTS Home Medications Home Medications Medication Instructions Recorded Confirmed Type aspirin 81 mg PO QAM 07/24/18 12/07/19 History atorvastatin 40 mg PO QAM 07/24/18 12/07/19 History cholecalciferol (vitamin D3) 4,000 unit PO QAM 07/24/18 12/07/19 History fluoxetine 60 mg PO QAM 07/24/18 12/07/19 History glipizide 2.5 mg PO QAM 07/24/18 12/07/19 History letrozole 2.5 mg PO QAM 07/24/18 12/07/19 History levothyroxine 150 mcg PO QAM 07/24/18 12/07/19 History lisinopril 2.5 mg PO QAM 07/24/18 12/07/19 History metformin 1,000 mg PO HS 07/24/18 12/07/19 History oxybutynin chloride 10 mg PO QAM 07/24/18 12/07/19 History pentoxifylline 1 tab PO BID 07/24/18 12/07/19 History empagliflozin 10 mg tablet 10 mg PO QAM 03/09/19 12/07/19 History Probiotic 3,000 mmu cells PO QAM 07/30/19 12/07/19 History cholecalciferol (vitamin D3) 25 mcg PO QPM 07/30/19 12/07/19 History [Vitamin D3] cyanocobalamin (vitamin B-12) 1,000 mcg PO 07/30/19 12/07/19 History ibuprofen [Motrin IB] 600 mg PO Q6H PRN 07/30/19 12/07/19 History tramadol 50 mg PO BID 12/07/19 12/07/19 History Patient History Medical History Arthritis LEFT HAND Breast cancer (Chronic 04/17/16) "Abnormal right breast mammogram 04/17/2016 Status post stereotactic guided biopsy of the right breast 05/27/2016 revealing microinvasive ductal carcinoma Status post right partial mastectomy and sentinel lymph node biopsy 06/21/2016 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 Status post completion of radiation therapy 08/02/2016 received 3850 cGy utilizing accelerated partial breast treatment" Breast cancer RIGHT-05/2016 Carotid artery stenosis Acute left hemispheric infarcts likely due to embolism from L ICA (90% proximal stenosis). CVA (cerebral vascular accident) Depression Hyperlipidemia Hypertension Hypothyroid Migraine HX Peripheral artery disease (Chronic) Right upper extremity numbness Thyroid nodule RADIATION TX Type 2 diabetes mellitus (Chronic) Surgical History History of cataract surgery R/L History of colonoscopy X MULTIPLE Hx of lumpectomy 2015 WITH NODE EXCISION-RADIATION/NO CHEMO Family History Mother Family hx of colon cancer Other Cancer Diabetes Lung disease Social History Preferred Language: [place] Leonean Communication Ability: Effective Driver Engineer Required: No Beliefs That Will Affect Care: None Current Living Situation: Alone Feels Safe at Home: Yes Smoking Status: Never smoker Second Hand Exposure: No ; Hx Alcohol Use: No Hx Substance Use: No Review of Systems Review of Systems: All systems reviewed & are unremarkable except as noted in HPI & below Physical Exam Physical Exam: GENERAL : No acute distress. Patient is pleasant. She is found in Trendelenburg in the PACU EYES: No icterus, gaze conjugate. Pupils are equal round and reactive to light NOSE: No evidence of epistaxis. Nasal cannula is in place MOUTH: No lesions or candidiasis. There is no deviation of the tongue. There is no evidence of facial droop. NECK: Supple. Surgical site of left carotid endarterectomy is closed with no bruising or bleeding LUNGS: CTA B/L, no wheezes, rales or rhonchi. HEART: Regular, rate controlled. ABDOMEN: Soft, NT, ND, BS Present. EXTREMITIES: No LE edema, pedal pulses intact and equal bilaterally. There is a plaster cast on the right lower extremity. Patient can wiggle her toes and has good sensation of all 5 toes to touch NEURO: A&OX3. Pupils equal round react to light. Strength appears equal with finger grasp with right and left hand. There is no facial droop. There is no deviation of the tongue. There is no slurred speech. Patient has command of all 4 extremities. Results & Data Results & Data ([facility]) Vital Signs (Past 12 Hours) Vital Signs Temp Pulse Pulse Pulse Resp BP BP 12/10/19 16:45 51 L 14 85/41 L 97/42 L 12/10/19 16:40 50 L 17 78/37 L 91/40 L 12/10/19 16:35 50 L 17 84/40 L 96/48 L 12/10/19 16:25 52 L 16 91/42 L 100/48 L 12/10/19 16:15 50 L 15 81/38 L 93/43 L 12/10/19 16:05 36.7 C 49 L 16 89/38 L 96/43 L 12/10/19 15:57 46 L 15 103/42 L 108/48 L 12/10/19 15:55 52 L 19 99/42 L 99/47 L 12/10/19 15:45 49 L 15 103/49 L 102/43 L 12/10/19 15:35 44 L 17 103/49 L 97/43 L 12/10/19 15:25 48 L 16 88/43 L 12/10/19 15:17 36.2 C L 48 L 14 100/56 L 12/10/19 12:00 36.7 C 69 20 114/67 12/10/19 11:49 36.8 C 67 16 127/67 12/10/19 07:26 36.5 C 64 16 110/72 12/10/19 06:26 36.5 C 61 14 108/65 Pulse Ox 12/10/19 16:45 97 12/10/19 16:40 97 12/10/19 16:35 97 12/10/19 16:25 97 12/10/19 16:15 96 12/10/19 16:05 96 12/10/19 15:57 97 12/10/19 15:55 97 12/10/19 15:45 97 12/10/19 15:35 99 12/10/19 15:25 99 12/10/19 15:17 100 12/10/19 12:00 97 12/10/19 11:49 92 12/10/19 07:26 93 12/10/19 06:26 93 Laboratory Results 12/10/19 05:40 12/10/19 05:40 INR 1.0 (0.9-1.1) 12/08/19 06:00 Diagnostic Findings MRI OF THE BRAIN WITHOUT AND WITH IV CONTRAST CLINICAL HISTORY: expressive aphasia, R upper extremity numbness COMPARISON STUDY: Head CT and CTA of the head December 07, 2019. TECHNIQUE: Utilizing a 1.5 Cookie magnet and dedicated coil, multiplanar, multiecho imaging of the brain was performed pre and postcontrast administration. IV administration of 9 mL of Gadavist contrast was uneventful. FINDINGS: There are several small foci of acute infarction within the left centrum semiovale ovale and left parietal and temporal lobes. There is no mass effect or hemorrhage. Ventricular system is unremarkable. The basilar cisterns are patent. There is no intracranial mass or pathologic enhancement. Calvarial signal is normal. An old infarct within left cerebellar hemisphere is noted. White matter T2 hyperintense foci suggest small vessel disease. Orbits are unremarkable. Note is made of moderate atrophy. IMPRESSION: Several small acute infarcts within the left centrum semiovale ovale and left p arietal and temporal lobes. No mass effect or hemorrhage. ACT 112: Negative or not required by law. Electronically signed by: Ismael Darling M.D. 12/08/2019 7:[address] ANGIOGRAPHY OF THE NECK WITH CONTRAST CLINICAL HISTORY: R upper extremity numbness, expressive aphasia COMPARISON STUDY: No previous studies for comparison. Technique: CT angiography of the carotid and vertebral arteries was obtained using [employer] 320 IV and 3D reconstruction on an independent workstation. NASCET criteria was utilized. Automated exposure control was utilized for the study. A dose lowering technique was utilized adhering to the principles of ALARA. CT DOSE: 591.72 mGy.cm Findings: Lung apices are clear. There is no cervical lymphadenopathy. There is no cervical spine fracture. No suspicious osseous lesions are noted. No mucosal lesions are identified by CT. Note is made of calcified and noncalcified plaque within the proximal left internal carotid artery which results in severe stenosis. The vessel caliber at site of narrowing is approximately 0.4 mm. The distal left internal carotid artery measures 3.3 mm in caliber. There is calcified plaque within the proximal right internal carotid artery which results in stenosis. Vessel measures 1.1 mm in caliber at site of stenosis and 3.6 mm distally. There is tortuosity of the cervical left internal carotid artery and proximal left vertebral artery. The vertebral arteries are patent. There is no dissection within the major vessels of the neck. Incidental note is made of a 1.2 cm right lobe thyroid nodule. IMPRESSION: 1. Severe stenosis of the proximal bilateral internal carotid arteries, more severe on the left. Approximate 90% stenosis of the proximal left internal carotid artery and 80% stenosis of the proximal right internal carotid artery. 2. No dissection. ACT 112: Negative or not required by law. Electronically signed by: Ismael Darling M.D. 12/08/2019 7:46 AM XR ankle RT min 3V routine CLINICAL HISTORY: Right ankle pain and swelling. Fall. COMPARISON: None FINDINGS: Note is made of an acute oblique minimally displaced fracture that extends from the distal shaft of the right fibula to the level the tibiotalar joint. This extends 6.3 cm proximally from the level of the tibiotalar joint. There is also an acute nondisplaced fracture of the medial malleolus. No posterior tibial fracture is noted. There is at most minimal widening of the medial ankle mortise. Ankle soft tissue swelling is present. IMPRESSION: 1. Acute oblique minimally displaced distal right fibular fracture and acute nondisplaced fracture of the medial malleolus. 2. Equivocal minimal medial ankle mortise widening. ACT 112: Negative or not required by law. Electronically signed by: Ismael Darling M.D. 12/09/2019 4:53 PM Coding Level of Care Code Critical Care 1st 30-74 mins Diagnoses Admitted to intensive care unit Z78.9 CVA (cerebral vascular accident) I63.9 Fall W19.XXXA Type 2 diabetes mellitus E11.9 Peripheral artery disease I73.9 Fracture of ankle, bimalleolar, right, closed S82.841A Hypertension I10 Hyperlipidemia E78.5
--- NOTE | 2019-12-10 17:14 | Anesthesiology Progress Note ---
Date of Service December 10, 2019 Anesthesia Post Procedure Vital Signs Vital Signs: Temp Pulse Pulse Pulse Resp BP BP 12/10/19 17:10 36.2 C L 59 L 18 110/47 L 12/10/19 17:00 53 L 19 89/43 L 79/40 L 12/10/19 16:55 52 L 16 96/47 L 93/45 L 12/10/19 16:50 53 L 18 102/45 L 88/42 L 12/10/19 16:45 51 L 14 85/41 L 97/42 L 12/10/19 16:40 50 L 17 78/37 L 91/40 L 12/10/19 16:35 50 L 17 84/40 L 96/48 L 12/10/19 16:25 52 L 16 100/48 L 91/42 L 12/10/19 16:15 50 L 15 100/48 L 82/38 L 12/10/19 16:05 36.7 C 49 L 16 96/43 L 89/38 L 12/10/19 15:57 46 L 15 108/48 L 103/42 L 12/10/19 15:55 52 L 19 99/42 L 99/47 L 12/10/19 15:45 49 L 15 107/47 L 102/43 L 12/10/19 15:35 44 L 17 103/49 L 97/43 L 12/10/19 15:25 48 L 16 88/43 L 12/10/19 15:17 36.2 C L 48 L 14 100/56 L 12/10/19 12:00 36.7 C 69 20 114/67 12/10/19 11:49 36.8 C 67 16 127/67 12/10/19 07:26 36.5 C 64 16 110/72 12/10/19 06:26 36.5 C 61 14 108/65 12/10/19 03:45 36.8 C 59 L 16 102/48 L 12/09/19 23:39 36.6 C 65 18 120/71 12/09/19 19:18 36.8 C 76 18 110/63 Pulse Ox 12/10/19 17:10 98 12/10/19 17:00 95 12/10/19 16:55 96 12/10/19 16:50 97 12/10/19 16:45 97 12/10/19 16:40 97 12/10/19 16:35 97 12/10/19 16:25 97 12/10/19 16:15 96 12/10/19 16:05 96 12/10/19 15:57 97 12/10/19 15:55 97 12/10/19 15:45 97 12/10/19 15:35 99 12/10/19 15:25 99 12/10/19 15:17 100 12/10/19 12:00 97 12/10/19 11:49 92 12/10/19 07:26 93 12/10/19 06:26 93 12/10/19 03:45 99 12/09/19 23:39 94 12/09/19 19:18 91 Pain Intensity Right Foot: Pain Intensity: 6 Transfer of Care Handoff Completed per policy Notes Mental Status: alert / awake / arousable Patient Amnestic to Procedure: Yes Nausea / Vomiting: adequately controlled Pain: adequately controlled Airway Patency, RR, SpO2: stable & adequate BP & HR: stable & adequate Hydration State: stable & adequate Anesthetic Complications: no major complications apparent
[2019-12-10] MEDS ORDERED: MoRPHine SULFATE 4 MG/ML 1 ML CARP\\VIAL IV PRN (17:55)
[2019-12-10] MEDS: LACTATED RINGER'S 1,000 ML IV SCH (18:01)
[2019-12-10] MEDS: CYANOCOBALAMIN 500 MCG TABLET (VITAMIN B-12) PO SCH (20:49)
[2019-12-11] MEDS: LACTATED RINGER'S 1,000 ML IV SCH (03:14)
[2019-12-11] MEDS: LEVOTHYROXINE SODIUM 150 MCG TABLET PO SCH (05:42)
[2019-12-11 08:19] LABS: Basophils # (auto) 0.02 K/uL (0-0.2); Basophils % (auto) 0.2 %; Eosinophils % (auto) 0.8 %; Hematocrit (blood only) 41.8 % (37-47); Hemoglobin 13.3 g/dL (12.0-16.0); Immature Granulocytes # (auto) 0.04 K/uL (0.00-0.02); Immature Granulocytes % (auto) 0.3 %; Lymphocytes # (auto) 1.64 K/uL (1.2-3.4); Lymphocytes % (auto) 13.1 %; Mean Corpuscular Hemoglobin 31.1 pg (25-34); Mean Corpuscular Hgb Conc 31.8 g/dL (32-36); Mean Corpuscular Volume 97.9 fL (80-100); Mean Platelet Volume 10.1 fL (7.4-10.4); Monocytes # (auto) 1.02 K/uL (0.11-0.59); Monocytes % (auto) 8.1 %; Neutrophils % (auto) 77.5 %; Platelet Count 308 K/uL (130-400); RDW Coefficient of Variation 12.6 % (11.5-14.5); RDW Standard Deviation 44.6 fL (36.4-46.3); Red Blood Count 4.27 M/uL (4.2-5.4); White Blood Count 12.52 K/uL (4.8-10.8)
[2019-12-11] MEDS: INSULIN ASPART 100 UNITS/ML 3 ML PEN SC SCH ×4 (08:27→20:51)
[2019-12-11] MEDS: CHOLECALCIFEROL 1,000 UNITS 25 MCG TAB PO SCH ×2 (08:28→20:48)
[2019-12-11] MEDS: OXYBUTYNIN CHLORIDE XL 5 MG TABCR PO SCH (08:28)
[2019-12-11] MEDS: PENTOXIFYLLINE 400MG EXT REL TAB PO SCH ×2 (08:28→20:47)
[2019-12-11] MEDS: FLUOXETINE HCL 20 MG CAP PO SCH (08:29)
[2019-12-11] MEDS: ATORVASTATIN 40 MG TAB PO SCH (08:29)
[2019-12-11] MEDS: LETROZOLE 2.5 MG TAB PO SCH (08:29)
[2019-12-11] MEDS: CLOPIDOGREL BISULFATE 75 MG TAB PO SCH (08:29)
[2019-12-11] MEDS: ASPIRIN 81 MG ECTAB PO SCH (08:29)
[2019-12-11] MEDS: INSULIN GLARGINE SOLOSTAR 100 UNITS/ML 3 ML PEN SC SCH ×2 (08:30→20:54)
[2019-12-11] MEDS: TRAMADOL HCL 50 MG TABLET PO SCH ×2 (08:42→20:46)
[2019-12-11 08:51] LABS: BUN Creatinine Ratio 21.2 (10-20); Calcium 9.7 mg/dl (8.5-10.1); Creatinine Clr Calc Pharmacy 42.6 ml/min; Est GFR (African American) 43.8; Est GFR (Non-African American) 37.8; Magnesium 1.9 mg/dl (1.8-2.4); Phosphorus 3.6 mg/dl (2.5-4.9); Potassium 4.3 mmol/L (3.5-5.1)
--- NOTE | 2019-12-11 09:20 | Surgery Progress Note ---
Date of Service December 11, 2019 Assessment & Plan (1) S/P carotid endarterectomy: Patient doing well. Will transfer back to PCU. Should be no problem going ahead with ortho surgery on Friday. Subjective No complaints. Speech markedly improved. Right upper extremity as pre op baseline per patient. No problems swallowing. Physical Exam Skin: + incision (dry and clean, no hematoma) Neurologic: Speech / Cognition: normal speech and no expressive aphasia Motor/Sensory: normal movement (slight right upper extremity weakness) Psychiatric: Orientation: alert and oriented x 3 Results & Data Vital Signs (Past 12 Hours) Vital Signs Temp Pulse Resp BP Pulse Ox 12/11/19 05:00 36.8 C 66 15 96 12/11/19 04:44 68 13 101/51 L 99 12/11/19 04:30 68 17 99 12/11/19 04:14 65 18 99/57 L 100 12/11/19 04:00 67 19 100 12/11/19 03:44 66 16 101/51 L 100 12/11/19 03:30 67 17 12/11/19 03:13 65 20 99/49 L 12/11/19 03:00 68 3 L 12/11/19 02:44 69 23 94/49 L 100 12/11/19 02:30 64 14 99 12/11/19 02:13 68 16 104/52 L 96 12/11/19 02:00 72 16 94 12/11/19 01:43 73 17 96/49 L 99 12/11/19 01:30 67 25 H 99 12/11/19 01:14 70 16 97/48 L 100 12/11/19 01:00 72 17 99 12/11/19 00:44 73 18 92/54 L 98 12/11/19 00:30 74 16 98 12/11/19 00:13 69 16 113/53 L 99 12/11/19 00:00 36.7 C 68 16 100 12/10/19 23:43 66 17 100/56 L 93 12/10/19 23:30 68 30 H 98 12/10/19 23:13 64 16 111/63 100 12/10/19 23:00 73 17 96 12/10/19 22:44 66 14 122/65 99 12/10/19 22:30 64 16 99 12/10/19 22:13 66 17 107/50 L 98 12/10/19 22:00 72 20 99 12/10/19 21:44 70 17 102/47 L 98 12/10/19 21:32 70 16 12/10/19 21:31 76 15 91/44 L 12/10/19 21:29 69 20 81/43 L 12/10/19 21:28 68 15
--- NOTE | 2019-12-11 09:39 | Hospitalist Progress Note ---
Date of Service December 11, 2019 Assessment & Plan (1) Stroke due to embolism of carotid artery: already on aspirin, will add Plavix 75mg daily increase Lipitor to 80mg daily symptoms of right arm tingling and weakness are resolved speech is much improved, back to normal, she is quite pleased appreciate neurology consultation appreciate vascular surgery consult performed Left CEA on 12/10/[address] Sears transfer to PCU this morning, doing great (2) Right upper extremity numbness: due to stroke, MRI brain shows left parietal and temporal lobe scattered strokes symptoms resolved today consult PT/OT to work with patient (3) Type 2 diabetes mellitus: hold oral agents diabetic diet Novolog SS monitor for hypoglycemia, no episodes resume Metformin, Glipizide on discharge (4) Hyperlipidemia: increase Lipitor from 40mg to 80mg due to stroke and severe/critical stenosis (5) Hypertension: BP control with Lisinopril (6) Carotid artery stenosis: bilateral, left is severe/critical with 90% and stroke on left side right is moderate to severe, no need for intervention at this time s/p left CEA on 12/10/[address] Sears (7) Depression: on Prozac Prozac interacts with Plavix, decreases the effectiveness of the Plavix would recommend changing SSRI as outpatient, would require taper off of Prozac will defer to PCP, for now will continue mood is stable (8) Fracture of ankle, bimalleolar, right, closed: never c/o pain on day one, then had pain and swelling and could not walk on day 2 of admission ankle clearly swollen and tender with decreased ROM Right ankle x-ray shows minimally displaced distal fibula fracture and medial malleolus fracture place in splint, elevate, ice, non-weight bearing consult orthopedic surgery, plan for OR on Tuesday 12/12 for ORIF Admission and Anticipated Discharge Date Admission Date: December 07, 2019 Subjective patient feeling well this morning, sitting up in chair her speech is excellent, it is clear, normal tone, normal reena, she is really pleased about this CEA went well, no longer on Neosynephrine Dr. Sears is okay with her going to PCU reviewed labs, WBC 12k, Hb 13, Cr down to 1.3, electrolytes stable pain is controlled in right ankle, plan for OR on Friday Review of Systems Review of Systems: All systems reviewed & are unremarkable except as noted in HPI & below Physical Exam Constitutional: WD/WN, vitals as above + overweight Eyes: PERRL, conjunctivae normal, anicteric sclerae ENMT: external ear and nose normal, oropharynx normal Neck: trachea midline, no thyromegaly Respiratory: normal respiratory effort, lungs clear to auscultation Cardiovascular: RRR, no murmur, no edema Gastrointestinal (Abdomen): normal bowel sounds, soft, nontender, no hepatosplenomegaly Musculoskeletal: no cyanosis or clubbing, extremities motor strength 5/5 Ankle: + ankle abnormal to inspection (right ankle swollen, tender, decreased ROM), + effusion (right ankle) and + ecchymosis (right ankle) Skin: no rashes, warm and dry Neurologic: patellar DTR's 2+ bilat, sensation intact and PERRL, EOMI, accommodation nl, no face palsy, no dysarthria Psychiatric: A+Ox3, euthymic affect Lymphatic: no cervical or axillary lymphadenopathy Results & Data Results & Data ([facility]) Vital Signs (Past 12 Hours) Vital Signs Temp Pulse Resp BP Pulse Ox 12/11/19 05:00 36.8 C 66 15 96 12/11/19 04:44 68 13 101/51 L 99 12/11/19 04:30 68 17 99 12/11/19 04:14 65 18 99/57 L 100 12/11/19 04:00 67 19 100 12/11/19 03:44 66 16 101/51 L 100 12/11/19 03:30 67 17 12/11/19 03:13 65 20 99/49 L 12/11/19 03:00 68 3 L 12/11/19 02:44 69 23 94/49 L 100 12/11/19 02:30 64 14 99 12/11/19 02:13 68 16 104/52 L 96 12/11/19 02:00 72 16 94 12/11/19 01:43 73 17 96/49 L 99 12/11/19 01:30 67 25 H 99 12/11/19 01:14 70 16 97/48 L 100 12/11/19 01:00 72 17 99 12/11/19 00:44 73 18 92/54 L 98 12/11/19 00:30 74 16 98 12/11/19 00:13 69 16 113/53 L 99 12/11/19 00:00 36.7 C 68 16 100 12/10/19 23:43 66 17 100/56 L 93 12/10/19 23:30 68 30 H 98 12/10/19 23:13 64 16 111/63 100 12/10/19 23:00 73 17 96 12/10/19 22:44 66 14 122/65 99 12/10/19 22:30 64 16 99 12/10/19 22:13 66 17 107/50 L 98 12/10/19 22:00 72 20 99 12/10/19 21:44 70 17 102/47 L 98 Laboratory Results Laboratory Results - last 24 hr 12/10/19 12/10/19 12/11/19 15:19 20:45 07:23 WBC RBC Hgb Hct MCV MCH MCHC RDW Std Deviation RDW Coeff of Slim Plt Count MPV Immature Gran % (Auto) Neut % (Auto) Lymph % (Auto) [place] % (Auto) Eos % (Auto) Baso % (Auto) Immature Gran # (Auto) Neut # (Auto) Lymph # (Auto) [place] # (Auto) Eos # (Auto) Baso # (Auto) Sodium Potassium Chloride Carbon Dioxide Anion Gap BUN Creatinine Est Cr Clr Drug Dosing Est GFR ( Amer) Est GFR (Non-Af Amer) BUN/Creatinine Ratio Glucose POC Glucose 124 H 198 H 178 H Calcium Phosphorus Magnesium 12/11/19 12/11/19 12/11/19 07:54 07:54 11:40 WBC 12.52 H RBC 4.27 Hgb 13.3 Hct 41.8 MCV 97.9 MCH 31.1 MCHC 31.8 L RDW Std Deviation 44.6 RDW Coeff of Slim 12.6 Plt Count 308 MPV 10.1 Immature Gran % (Auto) 0.3 Neut % (Auto) 77.5 Lymph % (Auto) 13.1 [place] % (Auto) 8.1 Eos % (Auto) 0.8 Baso % (Auto) 0.2 Immature Gran # (Auto) 0.04 H Neut # (Auto) 9.70 H Lymph # (Auto) 1.64 [place] # (Auto) 1.02 H Eos # (Auto) 0.10 Baso # (Auto) 0.02 Sodium 135 L Potassium 4.3 Chloride 103 Carbon Dioxide 24 Anion Gap 8.0 BUN 29 H Creatinine 1.38 H Est Cr Clr Drug Dosing 42.6 Est GFR ( Amer) 43.8 Est GFR (Non-Af Amer) 37.8 BUN/Creatinine Ratio 21.2 H Glucose 165 H POC Glucose 245 H Calcium 9.7 Phosphorus 3.6 Magnesium 1.9 Medications Administered Current Inpatient Medications Aspirin (Ecotrin Ectab) 81 mg PO [facility] Stop: 01/07/20 08:59 Last Admin: 12/11/19 08:29 Dose: 81 mg Documented by: Atorvastatin Calcium (Lipitor) 80 mg PO [facility] Stop: 01/08/20 08:59 Last Admin: 12/11/19 08:29 Dose: 80 mg Documented by: Clopidogrel Bisulfate (Plavix) 75 mg PO [facility] Stop: 01/07/20 12:59 Last Admin: 12/11/19 08:29 Dose: 75 mg Documented by: Cyanocobalamin (Vitamin B-12) 1,000 mcg PO [facility] Stop: 01/06/20 21:39 Last Admin: 12/10/19 20:49 Dose: 1,000 mcg Documented by: Dextrose (Dextrose 50%) 25 - 50 ml IV UD PRN; Protocol PRN Reason: Hypoglycemia Protocol Stop: 01/06/20 21:39 Enoxaparin Sodium (Lovenox) 40 mg SQ DAILY@2100 [facility] Stop: 01/07/20 20:59 Last Admin: 12/08/19 20:55 Dose: 40 mg Documented by: Fluoxetine HCl (Prozac) 60 mg PO [facility] Stop: 01/07/20 08:59 Last Admin: 12/11/19 08:29 Dose: 60 mg Documented by: Gadobutrol (Gadavist 65ml) 9 ml IV ONCE PRN PRN Reason: Interaction Checking Stop: 12/11/19 23:23 Last Admin: 12/07/19 23:24 Dose: 9 ml Documented by: Glucagon (Glucagen) 1 mg SQ UD PRN; Protocol PRN Reason: Hypoglycemia Protocol Stop: 01/06/20 21:39 Glucose (Dex4 Glucose) 4 - 8 tabs PO UD PRN; Protocol PRN Reason: Hypoglycemia Protocol Stop: 01/06/20 21:39 Glucose (Glucose 40%) 15 - 30 gm PO UD PRN; Protocol PRN Reason: Hypoglycemia Protocol Stop: 01/06/20 21:39 Phenylephrine HCl 20 mg/ (Dextrose) 502 mls @ 0 mls/hr IV .Q0M [facility]; Protocol Stop: 01/09/20 16:29 Last Titration: 12/11/19 10:32 Dose: Infused Documented by: Ibuprofen (Motrin) 600 mg PO Q6H PRN PRN Reason: Pain Stop: 01/08/20 15:59 Last Admin: 12/11/19 11:55 Dose: 600 mg Documented by: Insulin Aspart (Novolog Flexpen) 0 units SC ACHS [facility] Stop: 01/06/20 21:39 Last Admin: 12/11/19 11:55 Dose: 7 units Documented by: Insulin Glargine (Lantus Solostar Pen) 9 units SC BID [facility] Stop: 01/06/20 21:39 Last Admin: 12/11/19 08:30 Dose: 9 units Documented by: [facility] ([facility]) [facility] Stop: 01/07/20 08:59 Last Admin: 12/11/19 08:29 Dose: 2.5 mg Documented by: Levothyroxine Sodium (Synthroid) 150 mcg PO DAILYBB [facility] Stop: 01/07/20 06:29 Last Admin: 12/11/19 05:42 Dose: 150 mcg Documented by: Lisinopril (Zestril) [facility] Stop: 01/07/20 08:59 Last Admin: 12/11/19 08:29 Dose: 2.5 mg Documented by: Miscellaneous (Carbohydrates For Hypoglycemia) 15 - 30 gm PO UD PRN PRN Reason: Hypoglycemia Protocol Stop: 01/06/20 21:39 Oxybutynin Chloride (Ditropan Xl) 10 mg PO QAM [facility] Stop: 01/07/20 08:59 Last Admin: 12/11/19 08:28 Dose: 10 mg Documented by: Pentoxifylline (Trental) 400 mg PO BID [facility] Stop: 01/06/20 21:39 Last Admin: 12/11/19 08:28 Dose: 400 mg Documented by: Tramadol HCl (Ultram) 50 mg PO BID [facility] Stop: 01/07/20 08:59 Last Admin: 12/11/19 08:42 Dose: 50 mg Documented by: Vitamin D (Vitamin D3) 4,000 [facility] [place] Stop: 01/07/20 08:59 Last Admin: 12/11/19 08:28 Dose: 4,000 units Documented by: Vitamin D (Vitamin D3) 1,000 units PO QPM [facility] Stop: 01/06/20 21:39 Last Admin: 12/10/19 20:50 Dose: 1,000 units Documented by: PG Care Time/CCT Total # of Minutes Spent Total Time Spent with Patient: Total time spent is greater than 50% in coordination of care (as documented) at patient's floor/unit and/or counseling patient: Coding Level of Care Code 90232 Subseq Hosp Care Lvl 2 Diagnoses Stroke due to embolism of carotid artery I63.139 Right upper extremity numbness R20.0 Type 2 diabetes mellitus E11.9 Hyperlipidemia E78.5 Hypertension I10 Carotid artery stenosis I65.29 Depression F32.9 Fracture of ankle, bimalleolar, right, closed S82.840B
[2019-12-11] MEDS: PHENYLEPHRINE HCL 20 MG in DEXTROSE 5% 500 ML IV SCH (10:32)
[2019-12-11] MEDS: IBUPROFEN 600 MG TAB PO PRN (11:55)
[2019-12-11] MEDS: CYANOCOBALAMIN 500 MCG TABLET (VITAMIN B-12) PO SCH (20:46)
[2019-12-12] MEDS: LEVOTHYROXINE SODIUM 150 MCG TABLET PO SCH (06:14)
[2019-12-12] MEDS: INSULIN ASPART 100 UNITS/ML 3 ML PEN SC SCH ×4 (07:47→20:43)
[2019-12-12] MEDS: PENTOXIFYLLINE 400MG EXT REL TAB PO SCH ×2 (07:49→20:47)
[2019-12-12] MEDS: CHOLECALCIFEROL 1,000 UNITS 25 MCG TAB PO SCH ×2 (07:49→20:48)
[2019-12-12] MEDS: FLUOXETINE HCL 20 MG CAP PO SCH (07:49)
[2019-12-12] MEDS: ATORVASTATIN 40 MG TAB PO SCH (07:49)
[2019-12-12] MEDS: CLOPIDOGREL BISULFATE 75 MG TAB PO SCH (07:49)
[2019-12-12] MEDS: OXYBUTYNIN CHLORIDE XL 5 MG TABCR PO SCH (07:50)
[2019-12-12] MEDS: LETROZOLE 2.5 MG TAB PO SCH (07:50)
[2019-12-12] MEDS: INSULIN GLARGINE SOLOSTAR 100 UNITS/ML 3 ML PEN SC SCH ×2 (07:50→20:45)
[2019-12-12] MEDS: ASPIRIN 81 MG ECTAB PO SCH (07:50)
[2019-12-12] MEDS: TRAMADOL HCL 50 MG TABLET PO SCH ×2 (07:59→20:50)
[2019-12-12 08:33] LABS: Hematocrit (blood only) 38.6 % (37-47); Hemoglobin 12.8 g/dL (12.0-16.0); Mean Corpuscular Hemoglobin 31.9 pg (25-34); Mean Corpuscular Hgb Conc 33.2 g/dL (32-36); Mean Corpuscular Volume 96.3 fL (80-100); Mean Platelet Volume 9.9 fL (7.4-10.4); Platelet Count 279 K/uL (130-400); RDW Coefficient of Variation 12.6 % (11.5-14.5); RDW Standard Deviation 44.1 fL (36.4-46.3); Red Blood Count 4.01 M/uL (4.2-5.4); White Blood Count 10.49 K/uL (4.8-10.8)
[2019-12-12 09:07] LABS: BUN Creatinine Ratio 19.7 (10-20); Calcium 9.6 mg/dl (8.5-10.1); Creatinine Clr Calc Pharmacy 50.7 ml/min; Est GFR (African American) 54.7; Est GFR (Non-African American) 47.2; Potassium 4.8 mmol/L (3.5-5.1)
--- NOTE | 2019-12-12 11:32 | Hospitalist Progress Note ---
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 Sears doing great post op, stable on PCU use aspirin and Plavix combined until she can be transitioned off of Prozac, see below continue Lipitor 80mg daily plan for [facility], anticipate being ready on Wednesday 12/13 (2) Right upper extremity numbness: due to stroke, MRI brain shows left parietal and temporal lobe scattered strokes symptoms resolved today consult PT/OT to work with patient (3) Type 2 diabetes mellitus: hold oral agents diabetic diet Novolog SS monitor for hypoglycemia, no episodes resume Metformin, Glipizide on discharge (4) Hyperlipidemia: increase Lipitor from 40mg to 80mg due to stroke and severe/critical stenosis (5) Hypertension: BP control with Lisinopril (6) Carotid artery stenosis: bilateral, left is severe/critical with 90% and stroke on left side right is moderate to severe, no need for intervention at this time s/p left CEA on 12/10/[address] Sears treat with Lipitor 80mg daily aspirin 81mg and Plavix 75mg daily continue dual antiplatelets until PCP can change SSRI, see below once off Prozac then could just use Plavix (7) Depression: on Prozac Prozac interacts with Plavix, decreases the effectiveness of the Plavix would recommend changing SSRI as outpatient, would require taper off of Prozac will defer to PCP, for now will continue mood is stable (8) Fracture of ankle, bimalleolar, right, closed: never c/o pain on day one, then had pain and swelling and could not walk on day 2 of admission ankle clearly swollen and tender with decreased ROM Right ankle x-ray shows minimally displaced distal fibula fracture and medial malleolus fracture place in splint, elevate, ice, non-weight bearing consult orthopedic surgery, plan for OR on Tuesday 12/12 for ORIF Admission and Anticipated Discharge Date Admission Date: December 07, 2019 Anticipated date of discharge: 12/14/19 Subjective patient feeling great today her speech and writing are vastly improved, she wanted to show me that she was now writing normally she had PT with her right ankle cast, NWB she plans to go to [facility] after discharge plan for OR tomorrow for right ankle ORIF vitals stable, CBC and BMP today are normal Review of Systems Review of Systems: All systems reviewed & are unremarkable except as noted in HPI & below Musculoskeletal: + joint pain (right ankle) Physical Exam Constitutional: WD/WN, vitals as above + overweight Eyes: PERRL, conjunctivae normal, anicteric sclerae ENMT: external ear and nose normal, oropharynx normal Neck: trachea midline, no thyromegaly Respiratory: normal respiratory effort, lungs clear to auscultation Cardiovascular: RRR, no murmur, no edema Gastrointestinal (Abdomen): normal bowel sounds, soft, nontender, no hepatosplenomegaly Musculoskeletal: no cyanosis or clubbing, extremities motor strength 5/5 Ankle: + ankle abnormal to inspection (right ankle in cast) Skin: no rashes, warm and dry Neurologic: patellar DTR's 2+ bilat, sensation intact and PERRL, EOMI, accommodation nl, no face palsy, no dysarthria Psychiatric: A+Ox3, euthymic affect Lymphatic: no cervical or axillary lymphadenopathy Results & Data Results & Data ([facility]) Vital Signs (Past 12 Hours) Vital Signs Temp Pulse Pulse Resp BP Pulse Ox 12/12/19 07:07 36.8 C 72 18 120/62 94 12/12/19 04:00 37.0 C 71 18 124/72 95 12/12/19 00:00 75 12/11/19 23:36 37.1 C 74 18 113/55 L 95 Laboratory Results Laboratory Results - last 24 hr 12/11/19 12/11/19 12/12/19 16:20 20:24 07:31 WBC RBC Hgb Hct MCV MCH MCHC RDW Std Deviation RDW Coeff of Slim Plt Count MPV Sodium Potassium Chloride Carbon Dioxide Anion Gap BUN Creatinine Est Cr Clr Drug Dosing Est GFR ( Amer) Est GFR (Non-Af Amer) BUN/Creatinine Ratio Glucose POC Glucose 246 H 218 H 149 H Calcium 12/12/19 12/12/19 12/12/19 08:20 08:20 11:39 WBC 10.49 RBC 4.01 L Hgb 12.8 Hct 38.6 MCV 96.3 MCH 31.9 MCHC 33.2 RDW Std Deviation 44.1 RDW Coeff of Slim 12.6 Plt Count 279 MPV 9.9 Sodium 134 L Potassium 4.8 Chloride 105 Carbon Dioxide 23 Anion Gap 6.0 BUN 23 H Creatinine 1.15 Est Cr Clr Drug Dosing 50.7 Est GFR ( Amer) 54.7 Est GFR (Non-Af Amer) 47.2 BUN/Creatinine Ratio 19.7 Glucose 237 H POC Glucose 174 H Calcium 9.6 Medications Administered Current Inpatient Medications Aspirin (Ecotrin Ectab) 81 mg PO [facility] Stop: 01/07/20 08:59 Last Admin: 12/12/19 07:50 Dose: 81 mg Documented by: Atorvastatin Calcium (Lipitor) 80 mg PO [facility] Stop: 01/08/20 08:59 Last Admin: 12/12/19 07:49 Dose: 80 mg Documented by: Clopidogrel Bisulfate (Plavix) 75 mg PO [facility] Stop: 01/07/20 12:59 Last Admin: 12/12/19 07:49 Dose: 75 mg Documented by: Cyanocobalamin (Vitamin B-12) 1,000 mcg PO [facility] Stop: 01/06/20 21:39 Last Admin: 12/11/19 20:46 Dose: 1,000 mcg Documented by: Dextrose (Dextrose 50%) 25 - 50 ml IV UD PRN; Protocol PRN Reason: Hypoglycemia Protocol Stop: 01/06/20 21:39 Enoxaparin Sodium (Lovenox) 40 mg SQ DAILY@2100 [facility] Stop: 01/07/20 20:59 Last Admin: 12/08/19 20:55 Dose: 40 mg Documented by: Fluoxetine HCl (Prozac) 60 mg PO [facility] Stop: 01/07/20 08:59 Last Admin: 12/12/19 07:49 Dose: 60 mg Documented by: Glucagon (Glucagen) 1 mg SQ UD PRN; Protocol PRN Reason: Hypoglycemia Protocol Stop: 01/06/20 21:39 Glucose (Dex4 Glucose) 4 - 8 tabs PO UD PRN; Protocol PRN Reason: Hypoglycemia Protocol Stop: 01/06/20 21:39 Glucose (Glucose 40%) 15 - 30 gm PO UD PRN; Protocol PRN Reason: Hypoglycemia Protocol Stop: 01/06/20 21:39 Phenylephrine HCl 20 mg/ (Dextrose) 502 mls @ 0 mls/hr IV .Q0M [facility]; Protocol Stop: 01/09/20 16:29 Last Titration: 12/11/19 10:32 Dose: Infused Documented by: Ibuprofen (Motrin) 600 mg PO Q6H PRN PRN Reason: Pain Stop: 01/08/20 15:59 Last Admin: 12/11/19 11:55 Dose: 600 mg Documented by: Insulin Aspart (Novolog Flexpen) 0 units SC ACHS [facility] Stop: 01/06/20 21:39 Last Admin: 12/12/19 12:06 Dose: 3 units Documented by: Insulin Glargine (Lantus Solostar Pen) 9 units SC BID [facility] Stop: 01/06/20 21:39 Last Admin: 12/12/19 07:50 Dose: 9 units Documented by: Letrozole (Femara) [facility] [place] Stop: 01/07/20 08:59 Last Admin: 12/12/19 07:50 Dose: 2.5 mg Documented by: Levothyroxine Sodium (Synthroid) 150 mcg PO DAILYBB [facility] Stop: 01/07/20 06:29 Last Admin: 12/12/19 06:14 Dose: 150 mcg Documented by: Lisinopril (Zestril) 2.5 [facility] [place] Stop: 01/07/20 08:59 Last Admin: 12/12/19 07:50 Dose: 2.5 mg Documented by: Miscellaneous (Carbohydrates For Hypoglycemia) 15 - 30 gm PO UD PRN PRN Reason: Hypoglycemia Protocol Stop: 01/06/20 21:39 Oxybutynin Chloride (Ditropan Xl) 10 mg PO QAM [facility] Stop: 01/07/20 08:59 Last Admin: 12/12/19 07:50 Dose: 10 mg Documented by: Pentoxifylline (Trental) 400 mg PO BID [facility] Stop: 01/06/20 21:39 Last Admin: 12/12/19 07:49 Dose: 400 mg Documented by: Tramadol HCl (Ultram) 50 mg PO BID [facility] Stop: 01/07/20 08:59 Last Admin: 12/12/19 07:59 Dose: 50 mg Documented by: Vitamin D (Vitamin D3) 4,000 units PO QAM [facility] Stop: 01/07/20 08:59 Last Admin: 12/12/19 07:49 Dose: 4,000 units Documented by: Vitamin D (Vitamin D3) 1,000 units PO QPM [facility] Stop: 01/06/20 21:39 Last Admin: 12/11/19 20:48 Dose: 1,000 units Documented by: PG Care Time/CCT Total # of Minutes Spent Total Time Spent with Patient: Total time spent is greater than 50% in coordination of care (as documented) at patient's floor/unit and/or counseling patient: Coding Level of Care Code 09105 Subseq Hosp Care Lvl 3 Diagnoses Stroke due to embolism of carotid artery I63.139 Right upper extremity numbness R20.0 Type 2 diabetes mellitus E11.9 Hyperlipidemia E78.5 Hypertension I10 Carotid artery stenosis I65.29 Depression F32.9 Fracture of ankle, bimalleolar, right, closed S82.842R
[2019-12-12] MEDS: IBUPROFEN 600 MG TAB PO PRN (15:35)
[2019-12-12] MEDS: CYANOCOBALAMIN 500 MCG TABLET (VITAMIN B-12) PO SCH (20:48)
[2019-12-13] MEDS: LEVOTHYROXINE SODIUM 150 MCG TABLET PO SCH (05:25)
[2019-12-13] MEDS: INSULIN ASPART 100 UNITS/ML 3 ML PEN SC SCH ×4 (06:32→20:56)
[2019-12-13 07:47] LABS: Creatinine Clr Calc Pharmacy 50.9 ml/min; Est GFR (African American) 55.2; Est GFR (Non-African American) 47.7
[2019-12-13] MEDS: INSULIN GLARGINE SOLOSTAR 100 UNITS/ML 3 ML PEN SC SCH ×2 (09:40→20:55)
[2019-12-13] MEDS: OXYBUTYNIN CHLORIDE XL 5 MG TABCR PO SCH (11:00)
[2019-12-13] MEDS: ASPIRIN 81 MG ECTAB PO SCH (11:00)
[2019-12-13] MEDS: FLUOXETINE HCL 20 MG CAP PO SCH (11:01)
[2019-12-13] MEDS: CLOPIDOGREL BISULFATE 75 MG TAB PO SCH (11:01)
[2019-12-13] MEDS: ATORVASTATIN 40 MG TAB PO SCH (11:01)
[2019-12-13] MEDS: TRAMADOL HCL 50 MG TABLET PO SCH ×2 (11:01→20:59)
[2019-12-13] MEDS: PENTOXIFYLLINE 400MG EXT REL TAB PO SCH ×2 (11:01→20:53)
[2019-12-13] MEDS: LETROZOLE 2.5 MG TAB PO SCH (11:01)
[2019-12-13] MEDS: CHOLECALCIFEROL 1,000 UNITS 25 MCG TAB PO SCH ×2 (11:01→20:54)
[2019-12-13] MEDS ORDERED: fentaNYL citrate 100 MCG/2 ML VIAL ONE ×3 (11:50→16:26)
[2019-12-13] MEDS ORDERED: MIDAZOLAM HCL 1 MG/ML 2ML VIAL ONE (11:50)
[2019-12-13] MEDS ORDERED: PROPOFOL IV EMULSION 10 MG/ML 20 ML VIAL IV ONE ×2 (11:50→16:01)
[2019-12-13] MEDS ORDERED: CEFAZOLIN 2,000 MG/15 ML IV PUSH IV ONE (12:42)
[2019-12-13] MEDS ORDERED: fentaNYL citrate 100 MCG/2 ML VIAL IV PRN (13:19)
[2019-12-13] MEDS ORDERED: ATROPINE SULFATE 0.1 MG/ML 10ML SYR IV PRN (13:19)
[2019-12-13] MEDS ORDERED: ONDANSETRON INJ 2 MG/ML 2 ML VIAL IV PRN (13:19)
[2019-12-13] MEDS ORDERED: ePHEDrine sulfate 50 MG/ML AMP IV PRN (13:19)
[2019-12-13] MEDS ORDERED: HYDROmorphone INJ 2 MG/ML SYR/VIAL IV PRN (13:19)
--- NOTE | 2019-12-13 13:19 | Anesthesiology Consultation ---
Date of Service December 13, 2019 Assessment & Plan (1) Encounter for pre-operative examination: ASA ASA4 Proposed Anesthesia Anesthesia Type: General Risk / Benefits Reviewed With: PT / POA / Parent / Guardian, Accepts Plan and I nformed Consent Obtained History Surgery Operation Date: 12/10/19 12:35 Proposed Procedures p Left Carotid Endarterectomy - Dev Sears MD Operation Date: 12/13/19 07:00 Proposed Procedures p Right Ankle Open Reduction Internal Fixation - Christopher Garrett MD Height/Weight Height: 5 ft 6 in Weight: 94.4 kg Allergies Allergy/AdvReac Type Severity Reaction Status Date / Time coffee (Coffea arabica) Allergy Severe TONGUE Verified 12/07/19 18:43 SWELLING,HIVES-COFFEE BEANS No Known Drug Allergies Allergy Unknown Verified 12/08/19 12:01 magnesium salicylate AdvReac Mild migraines-M Verified 12/07/19 18:43 SG lactose AdvReac Unknown INTOLERANT Verified 12/07/19 18:43 WITH MILK PRODUCTS Medications Home Medications Medication Instructions Recorded Confirmed Last Taken aspirin 81 mg PO QAM 07/24/18 12/07/19 12/07/19 atorvastatin 40 mg PO QAM 07/24/18 12/07/19 12/07/19 cholecalciferol (vitamin D3) 4,000 unit PO QAM 07/24/18 12/07/19 12/07/19 fluoxetine 60 mg PO QAM 07/24/18 12/07/19 12/07/19 glipizide 2.5 mg PO QAM 07/24/18 12/07/19 12/07/19 letrozole 2.5 mg PO QAM 07/24/18 12/07/19 12/07/19 levothyroxine 150 mcg PO QAM 07/24/18 12/07/19 12/07/19 lisinopril 2.5 mg PO QAM 07/24/18 12/07/19 12/07/19 metformin 1,000 mg PO HS 07/24/18 12/07/19 12/07/19 oxybutynin chloride 10 mg PO QAM 07/24/18 12/07/19 12/07/19 pentoxifylline 1 tab PO BID 07/24/18 12/07/19 12/07/19 empagliflozin 10 mg tablet 10 mg PO QAM 03/09/19 12/07/19 12/07/19 Probiotic 3,000 mmu cells PO QAM 07/30/19 12/07/19 12/07/19 cholecalciferol (vitamin D3) 25 mcg PO QPM 07/30/19 12/07/19 12/07/19 [Vitamin D3] cyanocobalamin (vitamin B-12) 1,000 mcg PO HS 07/30/19 12/07/19 12/07/19 ibuprofen [Motrin IB] 600 mg PO Q6H PRN 07/30/19 12/07/19 12/07/19 tramadol 50 mg PO BID 12/07/19 12/07/19 12/07/19 Active Medications Generic Name Dose Route Start Last Admin Trade Name Freq PRN Reason Stop Dose Admin Aspirin 81 mg 12/08/19 09:00 12/13/19 11:00 Ecotrin Ectab PO 01/07/20 08:59 Not Given QAM [facility] Atorvastatin Calcium 80 mg 12/09/19 09:00 12/13/19 11:01 Lipitor PO 01/08/20 08:59 Not Given QAM ELISHA Clopidogrel Bisulfate 75 mg 12/08/19 13:00 12/13/19 11:01 Plavix PO 01/07/20 12:59 Not Given QAM [facility] Cyanocobalamin 1,000 mcg 12/07/19 21:40 12/12/19 20:48 Vitamin B-12 PO 01/06/20 21:39 1,000 mcg HS ELISHA Administration Enoxaparin Sodium 40 mg 12/08/19 21:00 12/08/19 20:55 Lovenox SQ 01/07/20 20:59 40 mg DAILY@2100 ELISHA Administration Fluoxetine HCl 60 mg 12/08/19 09:00 12/13/19 11:01 Prozac PO 01/07/20 08:59 Not Given QAM [facility] Phenylephrine HCl 20 mg/ 502 mls @ 0 mls/hr 12/10/19 16:30 12/11/19 10:32 Dextrose IV 01/09/20 16:29 Infused .Q0M [facility] Titration Protocol 0 MCG/KG/MIN Ibuprofen 600 mg 12/09/19 16:00 12/12/19 15:35 Motrin PO 01/08/20 15:59 600 mg Q6H PRN Administration Pain Insulin Aspart 0 units 12/07/19 21:40 12/13/19 12:07 Novolog Flexpen SC 01/06/20 21:39 Not Given ACHS ELISHA Insulin Glargine 9 units 12/07/19 21:40 12/13/19 09:40 Lantus Solostar Pen SC 01/06/20 21:39 9 units BID ELISHA Administration Letrozole 2.5 mg 12/08/19 09:00 12/13/19 11:01 Femara PO 01/07/20 08:59 Not Given QAM ELISHA Levothyroxine Sodium 150 mcg 12/08/19 06:30 12/13/19 05:25 Synthroid PO 01/07/20 06:29 Not Given DAILYBB ELISHA Lisinopril 2.5 mg 12/08/19 09:00 12/13/19 11:01 Zestril PO 01/07/20 08:59 Not Given QAM ELISHA Oxybutynin Chloride 10 mg 12/08/19 09:00 12/13/19 11:00 Ditropan Xl PO 01/07/20 08:59 Not Given QAM ELISHA Pentoxifylline 400 mg 12/07/19 21:40 12/13/19 11:01 Trental PO 01/06/20 21:39 Not Given BID ELISHA Tramadol HCl 50 mg 12/08/19 09:00 12/13/19 11:01 Ultram PO 01/07/20 08:59 Not Given BID ELISHA Vitamin D 4,000 units 12/08/19 09:00 12/13/19 11:01 Vitamin D3 PO 01/07/20 08:59 Not Given QAM ELISHA Vitamin D 1,000 units 12/07/19 21:40 12/12/19 20:48 Vitamin D3 PO 01/06/20 21:39 1,000 units QPM ELISHA Administration NPO Date Last Intake of Fluids: 12/09/19 Time Last Intake of Fluids: 22:00 Date Last Intake of Solids: 12/09/19 Time Last Intake of Solids: 17:30 Past Medical History Medical History Arthritis LEFT HAND Breast cancer (Chronic 04/17/16) "Abnormal right breast mammogram 04/17/2016 Status post stereotactic guided biopsy of the right breast 05/27/2016 revealing microinvasive ductal carcinoma Status post right partial mastectomy and sentinel lymph node biopsy 06/21/2016 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 Status post completion of radiation therapy 08/02/2016 received 3850 cGy utilizing accelerated partial breast treatment" Breast cancer RIGHT-05/2016 Carotid artery stenosis Acute left hemispheric infarcts likely due to embolism from L ICA (90% proximal stenosis). CVA (cerebral vascular accident) Depression Hyperlipidemia Hypertension Hypothyroid Migraine HX Peripheral artery disease (Chronic) Right upper extremity numbness Thyroid nodule RADIATION [place] Type 2 diabetes mellitus (Chronic) Exercise / Class Metabolic Activity II 4-5 Yardwork/Stairs/Walk up hill Past Family History Family History Mother Family hx of colon cancer Other Cancer Diabetes Lung disease Past Surgical History Surgical History History of cataract surgery R/L History of colonoscopy X MULTIPLE Hx of lumpectomy 2015 WITH NODE EXCISION-RADIATION/NO CHEMO Past Anesthesia History No Hx of Anesthesia Complications and No Family Hx of Anesthesia Complications History of PONV No Hx of PONV and No Hx of Motion Sickness Social History Smoking Status: Never smoker Do You Dip or Chew Tobacco: No Hx Alcohol Use: No Hx Substance Use: No Review of Systems denies fever/cough/ colds/ chest pain/ SOB/ DANIKA Constitutional: no fever and no chills Respiratory: no cough and no dyspnea denies DANIKA Cardiovascular: no chest pain and no dyspnea on exertion Physical Exam Vital Signs Last Vital Signs Temp 37.2 C 12/13/19 11:01 Pulse 71 12/13/19 13:13 Resp 18 12/13/19 13:13 BP 125/80 12/13/19 13:13 Pulse Ox 95 12/13/19 13:13 ENMT Mouth: no TMJ abnormality and no dentition abnormality Thyromental Distance: > or= 3.5 Finger Breadths Mallampati Class: II Neck neck extension not limited Respiratory normal respiratory effort; no respiratory distress Auscultation: lungs clear to auscultation bilaterally Cardiovascular Rate/Rhythm: regular rate and regular rhythm Neurologic moves all extremities Psychiatric Orientation: alert and oriented x 3 Testing Laboratory Results 12/12/19 08:20 12/13/19 06:53 PT 10.4 Seconds (9.0-12.0) 12/08/19 06:00 INR 1.0 (0.9-1.1) 12/08/19 06:00 Hemoglobin A1c 7.9 % (4.5-5.6) H 12/07/19 17:42 Urine Color Yellow 12/08/19 05:25 Urine Appearance Clear (Clear) 12/08/19 05:25 Urine pH 7.0 (4.5-7.5) 12/08/19 05:25 Ur Specific [place] 1.024 (1.000-1.030) 12/08/19 05:25 Urine Protein Negative (Negative) 12/08/19 05:25 Urine Glucose (UA) 3+ (Negative) H 12/08/19 05:25 Urine Ketones Negative (Negative) 12/08/19 05:25 Urine Nitrite Negative (Negative) 12/08/19 05:25 Ur Leukocyte Esterase Negative (Negative) 12/08/19 05:25 Blood Type O Positive 12/09/19 09:37 Antibody Screen NEGATIVE 12/09/19 09:37 12/13/19 12/13/19 12/13/19 11:45 07:32 06:31 POC Glucose 138 H 173 H 173 H Electrocardiogram Date: 12/07/19 Findings: + NSR @ (94) Poor data quality, interpretation may be adversely affected Normal sinus rhythm Left axis deviation Low voltage QRS Cannot rule out Anterior infarct , age undetermined Abnormal ECG When compared with ECG of 24-JUL-2018 20:33, Minimal criteria for Anterior infarct are now Present Confirmed by Phong Chen ([id number]) on 12/08/2019 10:09:14 PM Chest X-Ray Date: 12/07/19 XR chest 1V portable HISTORY: weakness COMPARISON: Chest 10 03/05/2006. FINDINGS: Patchy left basilar densities. The heart is mildly enlarged. There are low lung volumes. No evidence for pulmonary edema. No pleural effusions. No pneumothorax. IMPRESSION: Patchy left basilar densities. This may represent atelectasis or pneumonia. Echocardiogram Date: 12/08/19 Normal LV size and function. EF 60-65%. No RWMA. Mild LVH. No significant valvular abnormalities visualized. No ASD. Other Testing Brain MRI 12/07/2019: MRI OF THE BRAIN WITHOUT AND WITH IV CONTRAST CLINICAL HISTORY: expressive aphasia, R upper extremity numbness COMPARISON STUDY: Head CT and CTA of the head December 07, 2019. TECHNIQUE: Utilizing a 1.5 Cookie magnet and dedicated coil, multiplanar, multiecho imaging of the brain was performed pre and postcontrast administration. IV administration of 9 mL of Gadavist contrast was uneventful. FINDINGS: There are several small foci of acute infarction within the left centrum semiovale ovale and left parietal and temporal lobes. There is no mass effect or hemorrhage. Ventricular system is unremarkable. The basilar cisterns are patent. There is no intracranial mass or pathologic enhancement. Calvarial signal is normal. An old infarct within left cerebellar hemisphere is noted. White matter T2 hyperintense foci suggest small vessel disease. Orbits are unremarkable. Note is made of moderate atrophy. IMPRESSION: Several small acute infarcts within the left centrum semiovale ovale and left parietal and temporal lobes. No mass effect or hemorrhage.
[2019-12-13] MEDS ORDERED: ONDANSETRON INJ 2 MG/ML 2 ML VIAL ONE ×2 (13:28→16:01)
[2019-12-13] MEDS ORDERED: ROCURONIUM BROMIDE 10 MG/ML 5 ML VIAL IV ONE (13:28)
[2019-12-13] MEDS ORDERED: SUCCINYLCHOLINE CHLORIDE 20 MG/ML 10 ML VIAL IV ONE (13:28)
[2019-12-13] MEDS ORDERED: LIDOCAINE HCL 2% 2 ML VIAL/AMP(20MG/ML) INFIL ONE ×2 (13:28→16:01)
[2019-12-13] MEDS ORDERED: BUPIVACAINE 0.5 % 5 MG/1 ML MPF 30ML VIAL ONE (13:58)
[2019-12-13] MEDS ORDERED: EPINEPHrine INJ 1 MG/ML AMP ONE (13:58)
--- NOTE | 2019-12-13 14:36 | History & Physical Bridge Note ---
Date of Service December 13, 2019 History & Physical Bridge Note I have examined the patient, reviewed the History & Physical and in the interval since the performance of the History & Physical I have noted the following changes of clinical significance: underwent carotid entarterectomy Friday afternoon with no complications. Has been on Plavix. Neurologic symptoms continue to improve. Denies any numbness in her R lower leg at present.
[2019-12-13] MEDS: CEFAZOLIN 2000MG 2,000 MG/15 ML SYR IV ONE ×2 (15:29→19:38)
[2019-12-13] MEDS ORDERED: CEFAZOLIN 2000MG 2,000 MG/15 ML SYR IV ONE ×2 (15:42→20:00)
[2019-12-13] MEDS ORDERED: PHENYLEPHRINE 100MCG/ML 5ML SYR ONE (15:55)
[2019-12-13] MEDS ORDERED: ePHEDrine sulfate 50 MG/ML SYR ONE (15:55)
[2019-12-13] MEDS ORDERED: PHENYLEPHRINE HCL 10 MG/ML VIAL ONE (15:55)
--- NOTE | 2019-12-13 17:42 | Operative Report ---
Post Operative Report Pre & Post Diagnosis Operation Date: 12/10/19 12:35 Pre-Op Diagnosis: left carotid stenosis Post-Op Diagnosis: left carotid stenosis Operation Date: 12/13/19 07:00 Pre-Op Diagnosis: Right (closed) bimalleolar ankle fracture Post-Op Diagnosis: Right (closed) bimalleolar ankle fracture I identified the patient and participated in the time-out.: Yes Procedure Operation Date: 12/13/19 07:00 Actual Procedures p Open Reduction Internal Fixation Right Bimalleolar Ankle Fracture(Right) - Christopher Garrett MD Surgeon Christopher Garrett MD Manufacturing Management Associate Db Ramos MD and JUDITH Lantigua PA-C Estimated Blood Loss 10 Findings Consistent with Post-Op Diagnosis Specimens None Complications none Disposition Accompanied Patient To Recovery: No Indications 74-year-old female who sustained a stroke at home on Friday last week. She fell forward out of her chair and likely fractured her ankle at that time. However she had right-sided numbness and motor dysfunction which resulted in a delayed diagnosis. X-rays were obtained on last week after she complained of continued right ankle pain with weightbearing. These demonstrated a bimalleolar ankle fracture, Mann C pattern. There was minimal displacement of the fracture. Surgery was recommended to allow her early weightbearing as well as to stabilize this unstable fracture pattern. Patient underwent carotid endarterectomy on Friday last week and is on aspirin and Plavix. I had a long discussion with her about the risks and benefits of surgery alternatives to surgery and expected outcomes. After reviewing all these she elected to proceed with surgery. All questions were answered. Informed consent was signed. Description of Procedure Patient was identified in the preoperative holding area where her surgical site was confirmed and marked. She was brought back to the main operating room she was placed in the operating table and general anesthesia was administered. A bump was placed underneath the operative hip. Bone foam was used distally. She was prepped and draped in the normal sterile fashion. Prior to incision a multidisciplinary timeout was called. All in the room were in agreement. We began by exsanguinating the limb with an Esmarch bandage. Tourniquet inflated 250 mmHg. A 10 cm long incision was made directly overlying the fibula. We dissected down through subcutaneous tissues to the level of the fascia. The superficial peroneal nerve was encountered in the proximal aspect of the wound. We dissected this out and retracted it anteriorly protecting it throughout the case. We then incised through the periosteum and raised full- thickness subperiosteal flaps to expose the fracture as well as the fibula. The distal fibular fragment was externally rotated and shortened. The fracture site was cleaned and irrigated. We then reduced the fracture using a pointed tenaculum clamp. 2 lag screws were placed from back to front using 2.7 mm cortical screws. The countersink was used to reduce the prominence of the heads posteriorly. These were quite proximal above the peroneal tendons and are unlikely to cause any problems. We then removed a pointed tenaculum clamp and inspected our screw position and reduction which was anatomic. We then secured a 8 hole Arthrex distal fibula locking plate using BB tacks. We checked this in all 3 views. This allowed us to get 4 holes proximally above the fracture which we were happy with. We then placed a 2.7 mm cortical screw distally to pull the plate down onto the bone. Three 3.5 mm cortical screws were placed in the proximal aspect of the plate and bicortical fashion. The distal locking holes were then filled using unicortical locking screws. Each of these screws was drilled and placed under fluoroscopic guidance to ensure we did not penetrate the articular surface. At this point we turned our attention toward the medial malleolus fracture. A 4 cm long incision was made directly over the top of the medial malleolus centered over the tip of the malleolus. We dissected down through subcutaneous tissues. Small crossing veins were cauterized. Fracture site was identified and cleaned. We irrigated out the fracture site. The fracture was then reduced using a dental pick. The fracture was stabilized using 2 K wires. Fluoroscopy was brought in which confirmed the proper position of her K wires. This was a small fragment which was not going to allow us to get 2 screws in it without a risk of comminuting the fracture. Therefore we drilled for only 1 of the K wires that was centrally located. This was drilled in bicortical fashion to optimize her compression of the fracture. A 60 mm cortical partially-threaded screw was then placed. Excellent fixation was obtained. The second K wire was removed and again there was excellent stability. At this point we checked an external rotation stress test. There was no medial clear space gapping. A cotton test was also performed that showed no medial clear space gapping. I therefore elected to place 1 more 3.5 mm cortical screw distal to the fracture since we did not need this hole for a syndesmosis screw or a tight rope. Once this was complete our final fluoroscopic images were obtained. The tourniquet was let down and meticulous hemostasis was ensured. The wounds were irrigated out with copious amounts of normal saline. The fascia on the lateral aspect of the wound was closed over the top of the plate using 0 Vicryl suture. Again great care was taken to leave the superficial peroneal nerve undisturbed. The deep dermal layer was closed with 2-0 Vicryl sutures followed by 3-0 nylon sutures in horizontal mattress fashion for the skin. 2-0 Vicryl and 3-0 nylon were similarly used in the medial wound for closure. The patient was then placed into a well-padded posterior and U plaster slab splint with the ankle held in neutral. Patient was then awoke from anesthesia and transferred recovery room in stable condition. Postoperative course: Patient will be readmitted to the floor. She will be nonweightbearing for 2 weeks on the right lower extremity. At that point we will remove her splint check her wounds and allow her to begin weightbearing as tolerated in a walking boot. She will be on aspirin and Plavix for DVT prophylaxis as per vascular surgery. I attest to the content of the Intraoperative Record and any orders documented therein. Any exceptions are noted below.
[2019-12-13] MEDS ORDERED: NALOXONE HCL 0.4 MG/1 ML VIAL/CARP IV PRN (18:04)
--- NOTE | 2019-12-13 18:04 | Operative Report ---
Post Operative Report Pre & Post Diagnosis Operation Date: 12/10/19 12:35 Pre-Op Diagnosis: left carotid stenosis Post-Op Diagnosis: left carotid stenosis Operation Date: 12/13/19 07:00 Pre-Op Diagnosis: Right (closed) bimalleolar ankle fracture Post-Op Diagnosis: Right (closed) bimalleolar ankle fracture I identified the patient and participated in the time-out.: Yes Procedure Operation Date: 12/10/19 12:35 Actual Procedures p Left carotid endarterectomy with vein patch graft (Left) - Dev Sears MD Operation Date: 12/13/19 07:00 Actual Procedures p Open Reduction Internal Fixation Right Bimalleolar Ankle Fracture(Right) - Christopher Garrett MD Surgeon Christopher Garrett MD Tentmaker Db Ramos MD and JUDITH Lantigua PA-C Estimated Blood Loss 10 Findings Consistent with Post-Op Diagnosis Specimens none Complications none Disposition Accompanied Patient To Recovery: Yes Disposition: Recovery Room Description of Procedure I was present during the entire case assisting with retraction, wound closure, dressing and splint application. Please see Dr. Garrett procedure note for specifics. I attest to the content of the Intraoperative Record and any orders documented therein. Any exceptions are noted below.
[2019-12-13] MEDS ORDERED: IBUPROFEN 600 MG PO PRN (18:07)
--- NOTE | 2019-12-13 18:10 | Operative Report ---
Post Operative Report Pre & Post Diagnosis Operation Date: 12/10/19 12:35 Pre-Op Diagnosis: left carotid stenosis Post-Op Diagnosis: left carotid stenosis Operation Date: 12/13/19 07:00 Pre-Op Diagnosis: Right (closed) bimalleolar ankle fracture Post-Op Diagnosis: Right (closed) bimalleolar ankle fracture I identified the patient and participated in the time-out.: Yes Procedure Operation Date: 12/10/19 12:35 Actual Procedures p Left carotid endarterectomy with vein patch graft (Left) - Dev Sears MD Operation Date: 12/13/19 07:00 Actual Procedures p Open Reduction Internal Fixation Right Bimalleolar Ankle Fracture(Right) - Christopher Garrett MD Surgeon Christopher Garrett MD Shipping Receiving Manager Db Ramos MD and JUDITH Lantigua PA-C Estimated Blood Loss 10 Findings Consistent with Post-Op Diagnosis Specimens None Complications none Disposition Accompanied Patient To Recovery: Yes Disposition: Recovery Room Description of Procedure Supine, standard prep and drape, Time out, tourniquet Open Reduction Internal Fixation Right Bimalleolar Ankle Fracture Please see Dr Garrett's procedure notes for specific details I was present throughout the case, assisted for wound closure and transferred the patient to PACU in stable condition I attest to the content of the Intraoperative Record and any orders documented therein. Any exceptions are noted below.
--- NOTE | 2019-12-13 18:25 | Fluoroscopy Report ---
INTRAOPERATIVE RADIOGRAPHS CLINICAL HISTORY: Open reduction and internal fixation of the right ankle. Fluoroscopy time: 45 seconds. FINDINGS: 3 spot fluoroscopic views of the right ankle are correlated with radiographs dated 0. There has been buttress plate fixation of a distal fibular fracture with church of [place] alignment. Numerous cortical lag screws transfix the buttress plate. A single cortical lag struct ure transfixes a medial malleolar fracture. The orthopedic hardware appears intact. Overlying soft ti ssue edema is noted. IMPRESSION: Intraoperative images from open reduction and internal fixation of right ankle fractures as above. Electronically signed by: Moe Martinez M.D. 12/13/2019 6:24 PM
--- NOTE | 2019-12-13 18:25 | Fluoroscopy Report ---
INTRAOPERATIVE RADIOGRAPHS CLINICAL HISTORY: Open reduction and internal fixation of the right ankle. Fluoroscopy time: 45 seconds. FINDINGS: 3 spot fluoroscopic views of the right ankle are correlated with radiographs dated 0. There has been buttress plate fixation of a distal fibular fracture with jehovah's witness of [place] alignment. Numerous cortical lag screws transfix the buttress plate. A single cortical lag struct ure transfixes a medial malleolar fracture. The orthopedic hardware appears intact. Overlying soft ti ssue edema is noted. IMPRESSION: Intraoperative images from open reduction and internal fixation of right ankle fractures as above. Electronically signed by: Moe Martinez M.D. 12/13/2019 6:24 PM
--- NOTE | 2019-12-13 18:37 | Hospitalist Progress Note ---
Date of Service December 13, 2019 Assessment & Plan (1) Stroke due to embolism of carotid artery: Presented with difficulty with speech and right sided numbness and weakness -Was found to have several small acute infarcts within the left centrum semiovale and left parietal and temporal lobes CT angiogram of the head neck revealed severe stenosis of the proximal bilateral internal carotid arteries more severe on the left with 90% stenosis of the proximal left ICA and 80% stenosis of the proximal right ICA -Was already on aspirin, and added Plavix 75mg daily -Increased Lipitor to 80mg daily symptoms of right arm tingling and weakness are resolved speech is much improved, right-sided weakness is resolved Blood pressures are appropriate Echocardiogram with preserved EF, no regional wall motion abnormalities or valvular abnormalities, no ASD and no evidence of right to left interatrial shunt appreciate neurology consultation appreciate vascular surgery consult performed Left CEA on 12/10/[address] Sears doing great post op, stable on PCU -Plan to use aspirin and Plavix combined until she can be transitioned off of Prozac, see below plan for [facility], anticipate being ready on Wednesday 12/13 (2) Right upper extremity numbness: due to stroke, MRI brain shows left parietal and temporal lobe scattered strokes symptoms resolved PT/OT involved (3) Type 2 diabetes mellitus: Blood pressures are controlled here. Hemoglobin A1c here is 7.9%-could be with improved control for her age and comorbidities -Needs weight loss counseling -Continue to hold oral agents while inpatient -Continue diabetic diet Novolog monitor for hypoglycemia, no episodes -Resume Metformin, Glipizide, and empagliflozin on discharge (4) Hyperlipidemia: increase Lipitor from 40mg to 80mg due to stroke and severe/critical stenosis of the carotid arteries Lipid panel here with total cholesterol 124, LDL 54, HDL 29 (5) Hypertension: BP control with Lisinopril (6) Carotid artery stenosis: bilateral, left is severe/critical with 90% and stroke on left side right is moderate to severe, no need for intervention at this time s/p left CEA on 12/10/[address] Sears treat with Lipitor 80mg daily aspirin 81mg and Plavix 75mg daily continue dual antiplatelets until PCP can change SSRI, see below once off Prozac then could just use Plavix (7) Depression: on Prozac Prozac interacts with Plavix, decreases the effectiveness of the Plavix would recommend changing SSRI as outpatient, would require taper off of Prozac will defer to PCP, for now will continue mood is stable (8) Fracture of ankle, bimalleolar, right, closed: never c/o pain on day one, then had pain and swelling and could not walk on day 2 of admission ankle clearly swollen and tender with decreased ROM Right ankle x-ray shows minimally displaced distal fibula fracture and medial malleolus fracture place in splint, elevate, ice, non-weight bearing consult orthopedic surgery, now status post ORIF on 12/12 -Appreciate orthopedic follow-up recommendations -Pain control as needed (9) Hypothyroid: TSH normal here at 0.371 -Continue home dose of levothyroxine 150 mcg once daily (10) Breast cancer: Continue home letrozole (11) DVT prophylaxis: Lovenox 40 mg SQ once daily Disposition-improving, hopeful for discharge to acute rehab tomorrow Admission and Anticipated Discharge Date Admission Date: December 07, 2019 Subjective Patient was seen in the PACU today after her right ankle ORIF. She was awake and alert and doing very well. She said she had no pain. She had full strength in her right upper extremity. She was unable to tell me about the right lower extremity as she had just had surgery and could not move it except for wiggling her toes. She feels that her speech is completely back to normal. She denies any headache or chest pain or shortness of breath. No nausea or vomiting, no abdominal pains. Telemetry today with normal sinus rhythm, PACs with rates in the 60s-70s. Review of Systems Review of Systems: All systems reviewed & are unremarkable except as noted in HPI & below Physical Exam Constitutional: WD/WN, vitals as above + obese Eyes: + anicteric sclerae and EOM intact bilaterally ENMT: external ear and nose normal, oropharynx normal Neck: trachea midline, no thyromegaly + abnormal visual inspection (Left side of neck with surgical wound healing with Dermabond in place) Respiratory: normal respiratory effort, lungs clear to auscultation Cardiovascular: RRR, no murmur, no edema Chest (Breasts): Chest: normal inspection of chest Gastrointestinal (Abdomen): normal bowel sounds, soft, nontender, no hepatosplenomegaly Musculoskeletal: Extremities: no cyanosis and no clubbing Ankle: + ankle abnormal to inspection (Right leg and ankle and foot with splint and Mikey wrap in place, able to wiggle toes and sensation intact in the toes bilaterally) Skin: no rashes, warm and dry Neurologic: moves all extremities and awake; no focal motor deficits (Unable to assess ankle motion but is able to wiggle toes on the right, with full strength in the right upper extremity as well as everywhere else) Speech / Cognition: normal speech, no expressive aphasia and normal cognition Motor/Sensory: no sensory deficit Psychiatric: A+Ox3, euthymic affect Lymphatic: no lymphedema Results & Data Results & Data ([facility]) Vital Signs (Past 12 Hours) Vital Signs Temp Pulse Pulse Resp BP Pulse Ox 12/13/19 18:30 75 15 135/68 95 12/13/19 18:20 76 15 137/83 90 12/13/19 18:10 36.3 C L 85 18 152/66 H 92 12/13/19 13:51 72 18 145/72 H 96 12/13/19 13:13 71 18 125/80 95 12/13/19 11:01 37.2 C 73 18 153/76 H 96 12/13/19 10:15 64 12/13/19 07:13 36.7 C 65 19 156/74 H 95 Laboratory Results 12/13/19 12/13/19 12/13/19 Range/Units 19:18 18:11 11:45 Creatinine (0.6-1.2) mg/dl Est Cr Clr Drug Dosing ml/min Est GFR ( Amer) Est GFR (Non-Af Amer) POC Glucose 132 H 125 H 138 H (70-99) mg/dl 12/13/19 12/13/19 12/13/19 Range/Units 07:32 06:53 06:31 Creatinine 1.14 (0.6-1.2) mg/dl Est Cr Clr Drug Dosing 50.9 ml/min Est GFR ( Amer) 55.2 Est GFR (Non-Af Amer) 47.7 POC Glucose 173 H 173 H (70-99) mg/dl PG Care Time/CCT Total # of Minutes Spent Total Time Spent with Patient: Total time spent is greater than 50% in coordination of care (as documented) at patient's floor/unit and/or counseling patient: Coding Level of Care Code 96652 Subseq Hosp Care Lvl 3 Diagnoses Stroke due to embolism of carotid artery I63.139 Right upper extremity numbness R20.0 Type 2 diabetes mellitus E11.9 Hyperlipidemia E78.5 Hypertension I10 Carotid artery stenosis I65.29 Depression F32.9 Fracture of ankle, bimalleolar, right, closed S82.841A Hypothyroid E03.9 Breast cancer C50.511; Z17.0 Breast location: lower outer quadrant of breast Estrogen receptor status: positive Patient sex: female Laterality: right DVT prophylaxis Z29.9 (1) Breast cancer Breast location: lower outer quadrant of breast Estrogen receptor status: positive Patient sex: female Laterality: right Qualified Code(s): C50.511 - Malignant neoplasm of lower-outer quadrant of right female breast; Z17.0 - Estrogen receptor positive status [ER+]
--- NOTE | 2019-12-13 18:47 | Anesthesiology Progress Note ---
Date of Service December 13, 2019 Anesthesia Post Procedure Vital Signs Vital Signs: Temp Pulse Pulse Resp BP Pulse Ox 12/13/19 18:40 36.5 C 74 16 136/70 95 12/13/19 18:30 75 15 135/68 95 12/13/19 18:20 76 15 137/83 90 12/13/19 18:10 36.3 C L 85 18 152/66 H 92 12/13/19 13:51 72 18 145/72 H 96 12/13/19 13:13 71 18 125/80 95 12/13/19 11:01 37.2 C 73 18 153/76 H 96 12/13/19 10:15 64 12/13/19 07:13 36.7 C 65 19 156/74 H 95 12/13/19 02:52 36.6 C 65 17 127/72 98 12/13/19 00:00 70 12/12/19 23:44 36.6 C 69 18 114/67 96 12/12/19 19:20 36.7 C 67 18 132/76 95 Pain Intensity Right Foot: Pain Intensity: 0 Transfer of Care Handoff Completed per policy Notes Mental Status: alert / awake / arousable Patient Amnestic to Procedure: Yes Nausea / Vomiting: adequately controlled Pain: adequately controlled Airway Patency, RR, SpO2: stable & adequate BP & HR: stable & adequate Hydration State: stable & adequate Anesthetic Complications: no major complications apparent and Pt Satisfied with anesthetic care Notes: The patient did well during surgery. She is now awake and comfortable. She is moving all extremities and is able to move her tongue back and forth. Postop BSG was 125. Dr. Loredo saw the patient in PACU and will follow her on the floor.
[2019-12-13] MEDS ORDERED: CLOPIDOGREL BISULFATE 75 MG TAB PO ONE (19:10)
[2019-12-13] MEDS ORDERED: ASPIRIN 81 MG ECTAB PO ONE (19:11)
[2019-12-13] MEDS ORDERED: ATORVASTATIN 40 MG TAB PO ONE (19:12)
[2019-12-13] MEDS ORDERED: LEVOTHYROXINE SODIUM 150 MCG TABLET PO ONE (19:13)
--- NOTE | 2019-12-13 19:13 | XRay Report ---
RIGHT ANKLE 2 VIEWS CLINICAL HISTORY: Postoperative examination. FINDINGS: AP and lateral views of the right ankle are compared to study dated 12/09/2019. The examinat ion is performed through a splint, obscuring fine bony detail. There has been buttress plate fixation of a distal fibular fracture with synagogue of near-anatomic alignment. At least 9 cortical lag sc rews transfix the buttress plate. 2 additional cortical lag screws transfix the fracture fragments. A cortical lag screw also transfixes a medial malleolar fracture. The orthopedic hardware appears inta ct. The ankle mortise is intact. Soft tissue edema is present around the ankle joint. A plantar calca tanya enthesophyte is noted. IMPRESSION: Postoperative findings from open reduction and internal fixation of right ankle fractures as above. Electronically signed by: Moe Martinez M.D. 12/13/2019 7:12 PM
[2019-12-13] MEDS: CYANOCOBALAMIN 500 MCG TABLET (VITAMIN B-12) PO SCH (20:54)
[2019-12-13] MEDS ORDERED: TRAMADOL HCL 50 MG TABLET PO SCH (21:00)
[2019-12-13] MEDS ORDERED: METFORMIN HCL 500 MG TAB PO SCH (21:00)
[2019-12-13] MEDS: ENOXAPARIN INJ 40 MG/0.4 ML SYR SQ SCH (21:40)
[2019-12-13] MEDS: IBUPROFEN 600 MG TAB PO PRN (21:43)
[2019-12-14] MEDS: LEVOTHYROXINE SODIUM 150 MCG TABLET PO SCH (05:50)
[2019-12-14 06:21] LABS: Basophils # (auto) 0.02 K/uL (0-0.2); Basophils % (auto) 0.2 %; Eosinophils # (auto) 0.15 K/uL (0-0.5); Eosinophils % (auto) 1.4 %; Hematocrit (blood only) 36.7 % (37-47); Immature Granulocytes # (auto) 0.03 K/uL (0.00-0.02); Immature Granulocytes % (auto) 0.3 %; Lymphocytes # (auto) 1.79 K/uL (1.2-3.4); Lymphocytes % (auto) 16.9 %; Mean Corpuscular Hemoglobin 31.9 pg (25-34); Mean Corpuscular Hgb Conc 32.7 g/dL (32-36); Mean Corpuscular Volume 97.6 fL (80-100); Mean Platelet Volume 9.8 fL (7.4-10.4); Monocytes # (auto) 0.95 K/uL (0.11-0.59); Neutrophils # (auto) 7.66 K/uL (1.4-6.5); Neutrophils % (auto) 72.2 %; Platelet Count 292 K/uL (130-400); RDW Coefficient of Variation 12.3 % (11.5-14.5); RDW Standard Deviation 43.9 fL (36.4-46.3); Red Blood Count 3.76 M/uL (4.2-5.4)
[2019-12-14 06:55] LABS: Calcium 9.5 mg/dl (8.5-10.1); Creatinine Clr Calc Pharmacy 51.1 ml/min; Est GFR (African American) 55.2; Est GFR (Non-African American) 47.7; Potassium 4.4 mmol/L (3.5-5.1)
[2019-12-14] MEDS: IBUPROFEN 600 MG TAB PO PRN ×2 (08:11→13:39)
[2019-12-14] MEDS: INSULIN ASPART 100 UNITS/ML 3 ML PEN SC SCH ×4 (08:21→21:06)
[2019-12-14] MEDS: FLUOXETINE HCL 20 MG CAP PO SCH (08:22)
[2019-12-14] MEDS: ASPIRIN 81 MG ECTAB PO SCH (08:22)
[2019-12-14] MEDS: LACTOBACILLUS ACIDOPHILUS (FLORANEX) TAB PO SCH (08:23)
[2019-12-14] MEDS: CLOPIDOGREL BISULFATE 75 MG TAB PO SCH (08:23)
[2019-12-14] MEDS: LETROZOLE 2.5 MG TAB PO SCH (08:24)
[2019-12-14] MEDS: PENTOXIFYLLINE 400MG EXT REL TAB PO SCH ×2 (08:25→21:01)
[2019-12-14] MEDS: ATORVASTATIN 40 MG TAB PO SCH (08:25)
[2019-12-14] MEDS: CHOLECALCIFEROL 1,000 UNITS 25 MCG TAB PO SCH ×2 (08:25→21:02)
[2019-12-14] MEDS: INSULIN GLARGINE SOLOSTAR 100 UNITS/ML 3 ML PEN SC SCH ×2 (08:26→21:02)
[2019-12-14] MEDS: OXYBUTYNIN CHLORIDE XL 5 MG TABCR PO SCH (08:26)
[2019-12-14] MEDS ORDERED: GLIPIZIDE 2.5 MG PO SCH (09:00)
[2019-12-14] MEDS ORDERED: NON-FORMULARY MEDICATION (Empagliflozin [Jardiance] 10 MG) PO SCH (09:00)
[2019-12-14] MEDS: TRAMADOL HCL 50 MG TABLET PO SCH ×2 (09:25→21:01)
--- NOTE | 2019-12-14 10:22 | Orthopedic Progress Note ---
Date of Service December 14, 2019 Assessment & Plan (1) Status post ORIF of fracture of ankle: PT/OT in house DVT prophy with TEDs/SCD's, Aspirin and Plavix Pain control with PO meds Keep splint in place NWB on Right LE with walker assistance Ice with EZ wrap Elevation of Rt LE Spoke with Dr. Loredo regarding D/c of Lovenox Plan on discharge to [facility] for rehab later today or early tomorrow Follow up at [facility] with Yo Porras PA-C in 2 wks (12/28/19) With questions call Admission and Anticipated Discharge Date Admission Date: December 07, 2019 Anticipated date of discharge: 12/14/19 Subjective This 74 yo F is day 1 s/p ORIF of Right ankle bimalleolar fracture. She is currently sitting up in bed watching television. She complains of mild intermittent pain in her Right ankle area that is effectively alleviated with Tramadol. Patient states that she did well with PT this AM. She denies CP, SOB, nausea, vomiting, fever, chills, sweats, lethargy or numbness/tingling in her Right foot/ankle. Review of Systems Review of Systems: All systems reviewed & are unremarkable except as noted in Subjective Physical Exam Physical Exam: Right LE: Splint clean, dry and intact. Fitting well. Mild TTP over anterior ankle. Toes mobile. NV intact. Able to perform active SLRT. Knee ROM 0-90. Cap refill < 2 seconds. Results & Data ([facility]) Vital Signs (Past 12 Hours) Vital Signs Temp Pulse Pulse Pulse Resp BP Pulse Ox 12/14/19 07:49 36.8 C 74 19 145/81 H 94 12/14/19 03:39 36.4 C L 67 17 114/64 97 12/14/19 00:00 78 12/13/19 22:45 37.3 C 78 17 132/69 96 Laboratory Results 12/14/19 12/14/19 12/14/19 Range/Units 07:17 06:06 06:06 WBC 10.60 (4.8-10.8) K/uL RBC 3.76 L (4.2-5.4) M/uL Hgb 12.0 (12.0-16.0) g/dL Hct 36.7 L (37-47) % MCV 97.6 (80-100) fL MCH 31.9 (25-34) pg MCHC 32.7 (32-36) g/dL RDW Std Deviation 43.9 (36.4-46.3) fL RDW Coeff of Slim 12.3 (11.5-14.5) % Plt Count 292 (130-400) K/uL MPV 9.8 (7.4-10.4) fL Immature Gran % (Auto) 0.3 % Neut % (Auto) 72.2 % Lymph % (Auto) 16.9 % [place] % (Auto) 9.0 % Eos % (Auto) 1.4 % Baso % (Auto) 0.2 % Immature Gran # (Auto) 0.03 H (0.00-0.02) K/uL Neut # (Auto) 7.66 H (1.4-6.5) K/uL Lymph # (Auto) 1.79 (1.2-3.4) K/uL [place] # (Auto) 0.95 H (0.11-0.59) K/uL Eos # (Auto) 0.15 (0-0.5) K/uL Baso # (Auto) 0.02 (0-0.2) K/uL Sodium 137 (136-145) mmol/L Potassium 4.4 (3.5-5.1) mmol/L Chloride 105 (98-107) mmol/L Carbon Dioxide 26 (21-32) mmol/L Anion Gap 6.0 (3-11) BUN 24 H (7-18) mg/dl Creatinine 1.14 (0.6-1.2) mg/dl Est Cr Clr Drug Dosing 51.1 ml/min Est GFR ( Amer) 55.2 Est GFR (Non-Af Amer) 47.7 BUN/Creatinine Ratio 21.0 H (10-20) Glucose 176 H (70-99) mg/dl POC Glucose 190 H (70-99) mg/dl Calcium 9.5 (8.5-10.1) mg/dl 12/13/19 12/13/19 12/13/19 Range/Units 19:18 18:11 11:45 WBC (4.8-10.8) K/uL RBC (4.2-5.4) M/uL Hgb (12.0-16.0) g/dL Hct (37-47) % MCV (80-100) fL MCH (25-34) pg MCHC (32-36) g/dL RDW Std Deviation (36.4-46.3) fL RDW Coeff of Slim (11.5-14.5) % Plt Count (130-400) K/uL MPV (7.4-10.4) fL Immature Gran % (Auto) % Neut % (Auto) % Lymph % (Auto) % [place] % (Auto) % Eos % (Auto) % Baso % (Auto) % Immature Gran # (Auto) (0.00-0.02) K/uL Neut # (Auto) (1.4-6.5) K/uL Lymph # (Auto) (1.2-3.4) K/uL [place] # (Auto) (0.11-0.59) K/uL Eos # (Auto) (0-0.5) K/uL Baso # (Auto) (0-0.2) K/uL Sodium (136-145) mmol/L Potassium (3.5-5.1) mmol/L Chloride (98-107) mmol/L Carbon Dioxide (21-32) mmol/L Anion Gap (3-11) BUN (7-18) mg/dl Creatinine (0.6-1.2) mg/dl Est Cr Clr Drug Dosing ml/min Est GFR ( Amer) Est GFR (Non-Af Amer) BUN/Creatinine Ratio (10-20) Glucose (70-99) mg/dl POC Glucose 132 H 125 H 138 H (70-99) mg/dl Calcium (8.5-10.1) mg/dl
[2019-12-14] MEDS ORDERED: ACETAMINOPHEN 500 MG TAB PO PRN (16:43)
[2019-12-14] MEDS: POLYETHYLENE (MIRALAX) 17 GM PACK PO SCH (16:53)
--- NOTE | 2019-12-14 16:54 | Hospitalist Progress Note ---
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: Presented with difficulty with speech and right sided numbness and weakness -Was found to have several small acute infarcts within the left centrum semiovale and left parietal and temporal lobes CT angiogram of the head neck revealed severe stenosis of the proximal bilateral internal carotid arteries more severe on the left with 90% stenosis of the proximal left ICA and 80% stenosis of the proximal right ICA -Was already on aspirin, and added Plavix 75mg daily -Increased Lipitor to 80mg daily symptoms of right arm tingling and weakness are resolved speech is much improved, right-sided weakness is resolved Blood pressures are appropriate Echocardiogram with preserved EF, no regional wall motion abnormalities or valvular abnormalities, no ASD and no evidence of right to left interatrial shunt appreciate neurology consultation appreciate vascular surgery consult performed Left CEA on 12/10/[address] Sears doing great post op, stable on PCU -Plan to use aspirin and Plavix combined until she can be transitioned off of Prozac, see below plan for [facility]-awaiting insurance authorization (2) Right upper extremity numbness: due to stroke, MRI brain shows left parietal and temporal lobe scattered strokes symptoms resolved PT/OT involved (3) Type 2 diabetes mellitus: Blood sugars are somewhat elevated today. Hemoglobin A1c here is 7.9%-could be with improved control for her age and comorbidities -Needs weight loss counseling -Continue to hold oral agents while inpatient -Continue diabetic diet Novolog SS-change arranged to 100-140, lower correction factor to 1: 30 -Resume Metformin, Glipizide, and empagliflozin on discharge (4) Hyperlipidemia: increase Lipitor from 40mg to 80mg due to stroke and severe/critical stenosis of the carotid arteries Lipid panel here with total cholesterol 124, LDL 54, HDL 29 (5) Hypertension: BP is controlled with Lisinopril (6) Carotid artery stenosis: bilateral, left is severe/critical with 90% and stroke on left side right is moderate to severe, no need for intervention at this time s/p left CEA on 12/10/[address] Sears treat with Lipitor 80mg daily aspirin 81mg and Plavix 75mg daily continue dual antiplatelets until PCP can change SSRI, see below once off Prozac then could just use Plavix With some postoperative swelling Discussed case with vascular surgery-stable for discharge from their standpoint with follow-up in the office 2 weeks from the time of surgery -Will need continued surveillance of the right side as an outpatient (7) Depression: on Prozac Prozac interacts with Plavix, decreases the effectiveness of the Plavix would recommend changing SSRI as outpatient, would require taper off of Prozac will defer to PCP, for now will continue mood is stable (8) Fracture of ankle, bimalleolar, right, closed: never c/o pain on day one, then had pain and swelling and could not walk on day 2 of admission ankle clearly swollen and tender with decreased ROM Right ankle x-ray shows minimally displaced distal fibula fracture and medial malleolus fracture Consulted orthopedic surgery, now status post ORIF on 12/12 -Appreciate orthopedic follow-up recommendations -Pain control as needed-we will add on acetaminophen 1000 mg p.o. every 8 hours as needed pain Nonweightbearing on the right lower extremity x2 weeks as per orthopedic recommendations (9) Hypothyroid: TSH normal here at 0.371 -Continue home dose of levothyroxine 150 mcg once daily (10) Breast cancer: Continue home letrozole (11) Constipation: Add on MiraLAX daily -Added senna/docusate once daily -Continue to monitor (12) DVT prophylaxis: Orthopedics asked that she not be on Lovenox-discontinued Continue aspirin, Plavix, SCD to the left leg Disposition-medically stable for discharge at this time, awaiting insurance authorization for [facility] with [facility] as a backup SNF Admission and Anticipated Discharge Date Admission Date: December 07, 2019 Anticipated date of discharge: 12/15/19 Subjective Patient having some pain in the right ankle that is only minimally improved with ibuprofen. She has not moved her bowels in many days. She denies any chest pains or shortness of breath. I discussed the case with the orthopedic PA in the vascular surgery PA. Telemetry with normal sinus rhythm with rates in the 60s to 70s Review of Systems Review of Systems: All systems reviewed & are unremarkable except as noted in HPI & below Physical Exam Constitutional: WD/WN, vitals as above + obese Eyes: + anicteric sclerae and EOM intact bilaterally ENMT: external ear and nose normal, oropharynx normal Neck: trachea midline, no thyromegaly + abnormal visual inspection (Left side of neck with surgical wound healing with Dermabond in place, mild to moderate edema) Respiratory: normal respiratory effort, lungs clear to auscultation Cardiovascular: RRR, no murmur, no edema Chest (Breasts): Chest: normal inspection of chest Gastrointestinal (Abdomen): normal bowel sounds, soft, nontender, no hepatosplenomegaly Musculoskeletal: Extremities: no cyanosis and no clubbing Ankle: + ankle abnormal to inspection (Right leg and ankle and foot with splint and Mikey wrap in place, able to wiggle toes and sensation intact in the toes bilaterally) Skin: no rashes, warm and dry Neurologic: moves all extremities and awake; no focal motor deficits (Unable to assess ankle motion but is able to wiggle toes on the right, with full strength in the right upper extremity as well as everywhere else) Speech / Cognition: normal speech, no expressive aphasia and normal cognition Motor/ Sensory: no sensory deficit Psychiatric: A+Ox3, euthymic affect Lymphatic: no lymphedema Results & Data Results & Data ([facility]) Vital Signs (Past 12 Hours) Vital Signs Temp Pulse Pulse Resp BP Pulse Ox 12/14/19 15:20 37.0 C 76 19 118/70 95 12/14/19 13:44 96 12/14/19 11:31 36.9 C 83 18 91 12/14/19 08:00 66 12/14/19 07:49 36.8 C 74 19 145/81 H 94 Laboratory Results 12/14/19 12/14/19 12/14/19 Range/Units 16:35 11:17 07:17 WBC (4.8-10.8) K/uL RBC (4.2-5.4) M/uL Hgb (12.0-16.0) g/dL Hct (37-47) % MCV (80-100) fL MCH (25-34) pg MCHC (32-36) g/dL RDW Std Deviation (36.4-46.3) fL RDW Coeff of Slim (11.5-14.5) % Plt Count (130-400) K/uL MPV (7.4-10.4) fL Immature Gran % (Auto) % Neut % (Auto) % Lymph % (Auto) % [place] % (Auto) % Eos % (Auto) % Baso % (Auto) % Immature Gran # (Auto) (0.00-0.02) K/uL Neut # (Auto) (1.4-6.5) K/uL Lymph # (Auto) (1.2-3.4) K/uL [place] # (Auto) (0.11-0.59) K/uL Eos # (Auto) (0-0.5) K/uL Baso # (Auto) (0-0.2) K/uL Sodium (136-145) mmol/L Potassium (3.5-5.1) mmol/L Chloride (98-107) mmol/L Carbon Dioxide (21-32) mmol/L Anion Gap (3-11) BUN (7-18) mg/dl Creatinine (0.6-1.2) mg/dl Est Cr Clr Drug Dosing ml/min Est GFR ( Amer) Est GFR (Non-Af Amer) BUN/Creatinine Ratio (10-20) Glucose (70-99) mg/dl POC Glucose 232 H 284 H 190 H (70-99) mg/dl Calcium (8.5-10.1) mg/dl 12/14/19 12/14/19 12/13/19 Range/Units 06:06 06:06 19:18 WBC 10.60 (4.8-10.8) K/uL RBC 3.76 L (4.2-5.4) M/uL Hgb 12.0 (12.0-16.0) g/dL Hct 36.7 L (37-47) % MCV 97.6 (80-100) fL MCH 31.9 (25-34) pg MCHC 32.7 (32-36) g/dL RDW Std Deviation 43.9 (36.4-46.3) fL RDW Coeff of Slim 12.3 (11.5-14.5) % Plt Count 292 (130-400) K/uL MPV 9.8 (7.4-10.4) fL Immature Gran % (Auto) 0.3 % Neut % (Auto) 72.2 % Lymph % (Auto) 16.9 % [place] % (Auto) 9.0 % Eos % (Auto) 1.4 % Baso % (Auto) 0.2 % Immature Gran # (Auto) 0.03 H (0.00-0.02) K/uL Neut # (Auto) 7.66 H (1.4-6.5) K/uL Lymph # (Auto) 1.79 (1.2-3.4) K/uL [place] # (Auto) 0.95 H (0.11-0.59) K/uL Eos # (Auto) 0.15 (0-0.5) K/uL Baso # (Auto) 0.02 (0-0.2) K/uL Sodium 137 (136-145) mmol/L Potassium 4.4 (3.5-5.1) mmol/L Chloride 105 (98-107) mmol/L Carbon Dioxide 26 (21-32) mmol/L Anion Gap 6.0 (3-11) BUN 24 H (7-18) mg/dl Creatinine 1.14 (0.6-1.2) mg/dl Est Cr Clr Drug Dosing 51.1 ml/min Est GFR ( Amer) 55.2 Est GFR (Non-Af Amer) 47.7 BUN/Creatinine Ratio 21.0 H (10-20) Glucose 176 H (70-99) mg/dl POC Glucose 132 H (70-99) mg/dl Calcium 9.5 (8.5-10.1) mg/dl 12/13/19 Range/Units 18:11 WBC (4.8-10.8) K/uL RBC (4.2-5.4) M/uL Hgb (12.0-16.0) g/dL Hct (37-47) % MCV (80-100) fL MCH (25-34) pg MCHC (32-36) g/dL RDW Std Deviation (36.4-46.3) fL RDW Coeff of Slim (11.5-14.5) % Plt Count (130-400) K/uL MPV (7.4-10.4) fL Immature Gran % (Auto) % Neut % (Auto) % Lymph % (Auto) % [place] % (Auto) % Eos % (Auto) % Baso % (Auto) % Immature Gran # (Auto) (0.00-0.02) K/uL Neut # (Auto) (1.4-6.5) K/uL Lymph # (Auto) (1.2-3.4) K/uL [place] # (Auto) (0.11-0.59) K/uL Eos # (Auto) (0-0.5) K/uL Baso # (Auto) (0-0.2) K/uL Sodium (136-145) mmol/L Potassium (3.5-5.1) mmol/L Chloride (98-107) mmol/L Carbon Dioxide (21-32) mmol/L Anion Gap (3-11) BUN (7-18) mg/dl Creatinine (0.6-1.2) mg/dl Est Cr Clr Drug Dosing ml/min Est GFR ( Amer) Est GFR (Non-Af Amer) BUN/Creatinine Ratio (10-20) Glucose (70-99) mg/dl POC Glucose 125 H (70-99) mg/dl Calcium (8.5-10.1) mg/dl PG Care Time/CCT Total # of Minutes Spent Total Time Spent with Patient: Total time spent is greater than 50% in coordination of care (as documented) at patient's floor/unit and/or counseling patient: Coding Level of Care Code 99666 Subseq Hosp Care Lvl 3 Diagnoses Stroke due to embolism of carotid artery I63.139 Right upper extremity numbness R20.0 Type 2 diabetes mellitus E11.9 Hyperlipidemia E78.5 Hypertension I10 Carotid artery stenosis I65.29 Depression F32.9 Fracture of ankle, bimalleolar, right, closed S82.841A Hypothyroid E03.9 Breast cancer C50.511; Z17.0 Breast location: lower outer quadrant of breast Estrogen receptor status: positive Patient sex: female Laterality: right Constipation K59.00 DVT prophylaxis Z29.9 (1) Breast cancer Breast location: lower outer quadrant of breast Estrogen receptor status: positive Patient sex: female Laterality: right Qualified Code(s): C50.511 - Malignant neoplasm of lower-outer quadrant of right female breast; Z17.0 - Estrogen receptor positive status [ER+]
[2019-12-14] MEDS: CYANOCOBALAMIN 500 MCG TABLET (VITAMIN B-12) PO SCH (21:02)
[2019-12-15] MEDS: LEVOTHYROXINE SODIUM 150 MCG TABLET PO SCH (05:31)
[2019-12-15] MEDS: INSULIN ASPART 100 UNITS/ML 3 ML PEN SC SCH ×4 (08:21→20:56)
[2019-12-15] MEDS: ASPIRIN 81 MG ECTAB PO SCH (08:23)
[2019-12-15] MEDS: CLOPIDOGREL BISULFATE 75 MG TAB PO SCH (08:24)
[2019-12-15] MEDS: ATORVASTATIN 40 MG TAB PO SCH (08:24)
[2019-12-15] MEDS: FLUOXETINE HCL 20 MG CAP PO SCH (08:25)
[2019-12-15] MEDS: LETROZOLE 2.5 MG TAB PO SCH (08:26)
[2019-12-15] MEDS: OXYBUTYNIN CHLORIDE XL 5 MG TABCR PO SCH (08:27)
[2019-12-15] MEDS: CHOLECALCIFEROL 1,000 UNITS 25 MCG TAB PO SCH ×2 (08:28→20:55)
[2019-12-15] MEDS: LACTOBACILLUS ACIDOPHILUS (FLORANEX) TAB PO SCH (08:28)
[2019-12-15] MEDS: PENTOXIFYLLINE 400MG EXT REL TAB PO SCH ×2 (08:29→20:54)
[2019-12-15] MEDS: POLYETHYLENE (MIRALAX) 17 GM PACK PO SCH (08:29)
[2019-12-15] MEDS: TRAMADOL HCL 50 MG TABLET PO SCH ×2 (08:34→20:54)
[2019-12-15] MEDS: INSULIN GLARGINE SOLOSTAR 100 UNITS/ML 3 ML PEN SC SCH ×2 (08:35→20:56)
--- NOTE | 2019-12-15 11:58 | Discharge Summary ---
Date of Service December 16, 2019 Admission HPI Per Admitting Provider Mrs. Scott is a 74 yo F with a PMHx of type II diabetes mellitus, peripheral arterial disease, and a history of breast cancer, currently on an Aromatase inhibitor, who presented to the ED after falling from a seated position while at home today at 3:30 pm. She dropped her mouse while working on the computer, and when she bent over to pick it up, she realized she had fallen to the floor. When asked if she experienced a prodrome, she ambivalently endorses a feeling of lightheadedness. She does not believe she lost consciousness, although this event was unwitnessed. When she got herself up, she realized her R forearm was numb. Denies associated R arm weakness, but provides a description of R hand clumsiness. She phoned a friend for assistance after falling and reports her "words came out jumbled," when making the phone call. Her friend contacted her PCP, who sent an ambulance directly to Mrs. Scott's home. On the ride to the hospital, her blood glucose was recorded at 136. She reports that her expressive aphasia has persisted on arrival to the hospital, as she was unable to clearly state her PCP's name to ED staff even though she knew the answer. She also reports intermittent R hand clumsiness since arrival. While in the ED she became nauseous and vomited x2. Mrs. Shaffer diabetes seems to be well-controlled. She reports an A1c of 7.4 drawn two weeks ago. She manages it with Glipizide, Metformin and empagliflozin. Additional vascular risk factors include history a 20 pack year history of cigarette smoking, although she quit in 2011. No personal history of seizure disorder. Remote history of migraine headaches with aura, although none in past years. Prior to this episode, Mrs. Scott had been in her usual state of health, denies fever/chills, cough, SOB, general malaise. ED course: Non-contrast Head CT on admission showing no acute process. WBC elevated to 15 with neutrophil predominance; CBC otherwise normal. CMP WNL. Blood glucose at 145. CXR showing a patchy left basilar infiltrate. Patient was bolused with 1 liter of normal saline and given chewable Aspirin 324mg. She was placed on hall monitor. Principal Diagnosis Acute ischemic embolic stroke, Critical carotid artery stenosis s/p carotid endarterectomy, Right bimalleolar ankle fracture s/p ORIF Discharge Exam Constitutional WD/WN, vitals as above + obese Eyes + anicteric sclerae and EOM intact bilaterally ENMT external ear and nose normal, oropharynx normal Neck trachea midline, no thyromegaly + abnormal visual inspection (Left side of neck with surgical wound healing with Dermabond in place, mild to moderate edema) Respiratory normal respiratory effort, lungs clear to auscultation Cardiovascular RRR, no murmur, no edema Chest (Breasts) Chest: normal inspection of chest Gastrointestinal (Abdomen) normal bowel sounds, soft, nontender, no hepatosplenomegaly Musculoskeletal Extremities: no cyanosis and no clubbing Ankle: + ankle abnormal to inspection (Right leg and ankle and foot with splint and Mikey wrap in place, able to wiggle toes and sensation intact in the toes bilaterally) Skin no rashes, warm and dry Neurologic moves all extremities and awake; no focal motor deficits (Unable to assess ankle motion but is able to wiggle toes on the right, with full strength in the right upper extremity as well as everywhere else) Speech / Cognition: normal speech, no expressive aphasia and normal cognition Motor/Sensory: no sensory deficit Psychiatric A+Ox3, euthymic affect Lymphatic no lymphedema Discharge Data Allergies Allergy/AdvReac Type Severity Reaction Status Date / Time coffee (Coffea arabica) Allergy Severe TONGUE Verified 12/07/19 18:43 SWELLING,HIVES-COFFEE BEANS No Known Drug Allergies Allergy Unknown Verified 12/08/19 12:01 magnesium salicylate AdvReac Mild migraines-M Verified 12/07/19 18:43 SG lactose AdvReac Unknown INTOLERANT Verified 12/07/19 18:43 WITH MILK PRODUCTS Consultations 12/07/19 19:21 ED Decision to Admit Stat 12/07/19 21:40 Consult Case Management - Discharge Planning Routine Consult Neurology Routine 12/08/19 02:34 Consult Vascular Surgery Routine 12/09/19 17:25 Consult Orthopedic Surgery Routine 12/10/19 17:55 Consult Parts Department Supervisor Routine 12/13/19 18:04 Consult Case Management - Discharge Planning Routine Procedures Performed Operation Date: 12/10/19 12:35 Actual Procedures p Left carotid endarterectomy with vein patch graft (Left) - Dev Sears MD Operation Date: 12/13/19 07:00 Actual Procedures p Open Reduction Internal Fixation Right Bimalleolar Ankle Fracture(Right) - Christopher Garrett MD Ordered Studies 12/07/19 17:26 CT head/brain wo con Stat 12/07/19 21:40 CT angio head w con Routine CT angio neck with con Routine MR brain wo/w con Urgent 12/13/19 07:00 FL ankle RT min 3V RTN Routine FL fluoroscopy <1hr Routine CXR Ankle xray x 3 ECHO Hospital Course (1) Stroke due to embolism of carotid artery: Presented with difficulty with speech and right sided numbness and weakness -Was found to have several small acute infarcts within the left centrum semiovale and left parietal and temporal lobes CT angiogram of the head neck revealed severe stenosis of the proximal bilateral internal carotid arteries more severe on the left with 90% stenosis of the proximal left ICA and 80% stenosis of the proximal right ICA -Was already on aspirin, and added Plavix 75mg daily -Increased Lipitor to 80mg daily symptoms of right arm tingling and weakness are resolved speech is much improved, right-sided weakness is resolved Blood pressures are appropriate Echocardiogram with preserved EF, no regional wall motion abnormalities or valvular abnormalities, no ASD and no evidence of right to left interatrial shunt appreciate neurology consultation appreciate vascular surgery consult performed Left CEA on 12/10/[address] Sears doing great post op, stable on PCU -Plan to use aspirin and Plavix combined until she can be transitioned off of Prozac, see below Going to rehab today (2) Right upper extremity numbness: due to stroke, MRI brain shows left parietal and temporal lobe scattered strokes symptoms resolved PT/OT involved (3) Type 2 diabetes mellitus: Blood sugars are somewhat elevated here Hemoglobin A1c here is 7.9%-could be with improved control for her age and comorbidities -Needs weight loss counseling -held oral agents while inpatient but can restart upon discharge except dc glipizide -Continue diabetic diet -Resume Metformin, empagliflozin on discharge -start Lantus 12 units bid on discharge at rehab (4) Hyperlipidemia: increase Lipitor from 40mg to 80mg due to stroke and severe/critical stenosis of the carotid arteries Lipid panel here with total cholesterol 124, LDL 54, HDL 29 (5) Hypertension: BP is controlled with Lisinopril (6) Carotid artery stenosis: bilateral, left is severe/critical with 90% and stroke on left side right is moderate to severe, no need for intervention at this time s/p left CEA on 12/10/[address] Sears treat with Lipitor 80mg daily aspirin 81mg and Plavix 75mg daily continue dual antiplatelets until PCP can change SSRI, see below once off Prozac then could just use Plavix With some postoperative swelling Discussed case with vascular surgery-stable for discharge from their standpoint with follow-up in the office 2 weeks from the time of surgery -Will need continued surveillance of the right side as an outpatient (7) Depression: on Prozac Prozac interacts with Plavix, decreases the effectiveness of the Plavix would recommend changing SSRI as outpatient, would require taper off of Prozac will defer to PCP, for now will continue mood is stable (8) Fracture of ankle, bimalleolar, right, closed: never c/o pain on day one, then had pain and swelling and could not walk on day 2 of admission ankle clearly swollen and tender with decreased ROM Right ankle x-ray shows minimally displaced distal fibula fracture and medial malleolus fracture Consulted orthopedic surgery, now status post ORIF on 12/12 -Appreciate orthopedic follow-up recommendations -Pain control as needed-we will add on acetaminophen 1000 mg p.o. every 8 hours as needed pain Nonweightbearing on the right lower extremity x2 weeks as per orthopedic recommendations (9) Hypothyroid: TSH normal here at 0.371 -Continue home dose of levothyroxine 150 mcg once daily (10) Breast cancer: Continue home letrozole (11) Constipation: Added on MiraLAX daily -Added senna/docusate once daily Had BM on day of discharge (12) DVT prophylaxis: Orthopedics asked that she not be on Lovenox-discontinued Continue aspirin, Plavix, SCD to the left leg Disposition-medically stable for discharge at this time, awaiting insurance authorization for [facility] as a backup SNF-going to SNF today Total Time Total Time Spent Total Time Spent (In Minutes): >30 min Total Time Includes: Examination of the Patient, Discharge Planning and Medication Reconciliation Discharge Plan Discharge Items Patient Disposition: Transfer Group Home Fac Reason For Visit: FALL,LIMB NUMBNESS Discharge Diagnosis: Acute embolic CVA, severe carotid artery stenosis status post carotid endarterectomy, right ankle fracture status post ORIF Condition on Discharge: Good Activity: As commented below Bathing: Keep incision dry Driving/Machine Use: No driving Weightbearing: Right non-weightbearing Non-emergency contact: Primary Care Provider and Surgeon Call non-emergency contact if: you have any medication questions, your symptoms worsen, your pain is not controlled, your pain is worsening, your pain is unusual for you, your pain is concerning for you, you have a fever, your wound has increased redness, your wound has increased drainage and your wound pain has increased Follow-up/Referrals: Dev Sears MD [Physician] - 12/23/19 2:00 pm (Appt with Liliana Real at Dr. Sears's office.) Christopher Garrett MD [Physician] - (Follow-up within 2 weeks) PCPJENNYFER [Primary Care Provider] - Diet: Carb Consistent or DM2 and Heart Healthy Addtl Attending Provider Instructions: You were admitted after having a fall which resulted in a right ankle fracture and with right-sided weakness secondary to a stroke which was found on your brain MRI. You had severe narrowing of the carotid arteries in the left carotid artery had surgery to remove the plaque buildup. It is important to remain on the aspirin and Plavix for 4 weeks, and then take Plavix alone. Please taper down off your Prozac and onto a different SSRI at the discretion of your primary care physician as Prozac can inhibit Plavix from having its proper effectiveness. Please follow-up with orthopedic surgery within 2 weeks and remain nonweightbearing on the right lower extremity until that time. Risk Factors for Stroke: You can reduce your chances of stroke by working with your medical provider to adopt a healthy lifestyle. Some specific ways to lower your chance of stroke are: * If you are a smoker, now is the time to stop smoking cigarettes * If you are diabetic, improve the control of your blood sugars * Avoid excessive amounts of alcohol * Control high blood pressure * Lose weight if you are overweight * Be sure to lead an active lifestyle * Eat a healthy diet low in salt, cholesterol and fat You should know about other risk factors for stroke that you are unable to control. These include: * Age 55 years or older * Male gender * Certain racial groups: , or / * Family History of Stroke, Mini stroke or Heart Attack * Sickle Cell Disease Follow Up: It is important for you to keep your follow up appointments with your medical provider. Who to Call and When: Medical Emergencies: Call 911 immediately if you experience any of the following warning signs and symptoms of Stroke: * Sudden numbness or weakness of the face, arm or leg, especially on one side of the body * Sudden confusion, trouble speaking or understanding * Sudden trouble seeing in one or both eyes * Sudden trouble walking, dizziness, loss of balance or coordination * Sudden severe headache with no cause Do not delay calling 911 if you experience any warning signs or symptoms of a stroke. Delay in seeking medical attention may affect what treatments can be given to you. . Addtl Convolute Tube Winder Provider Instructions: SPECIAL CARE INSTRUCTIONS: Medications: * Continue to take Aspirin as directed. Incision Care: * You may shower, but do not rub incision. You may let the warm soapy water r un over it. Be sure to dry the incision well after bathing. * Do not shave directly over the incision until it is healed. * DO NOT IMMERSE THE INCISION IN A TUB/POOL/etc. UNTIL HEALED. Restrictions: * Do not drive for at least one week or if you are still taking any narcotic pain medication. * Do not lift anything heavier than a gallon of milk for one week after going home. Possible Complications: * Numbness - It is normal to have some numbness around the incision. Numbness can extend beyond the incision to areas of the neck, ear and face. The numbness is due to bruising of nerves during the surgery and will gradually improve over a period of months. * Hoarseness/Difficulty Speaking and Swallowing - The bruising of nerves in the neck can also cause a hoarse voice, difficulty speaking or swallowing. This may improve over time, HOWEVER, if it continues for more than a few days please contact our office ([phone]). * Excessive Swelling - There will be some swelling immediately after surgery which usually resolves within one week. If you notice that the swelling is getting worse, notify your surgeon ([phone]). * Drainage/Bleeding - If there is any drainage or bleeding, it should be a very small amount (less than a teaspoon per day). If you have excessive bleeding or drainage from the incision, call your surgeon ([phone]) right away. ACTIVATION OF EMERGENCY MEDICAL SYSTEM: Call 911, immediately, if you experience any of the following: Warning Signs and Symptoms of Stroke: * Sudden numbness or weakness of the face, arm or leg, especially on one side of the body * Sudden confusion, trouble speaking or understanding * Sudden trouble seeing in one or both eyes * Sudden trouble walking, dizziness, loss of balance or coordination * Sudden severe headache with no cause Do not delay calling 911 if you experience any warning signs or symptoms of a stroke. Delay in seeking medical attention may affect what treatments can be given to you. Risk Factors for Stroke: You can reduce your chances of stroke by working with your medical provider to adopt a healthy lifestyle. Some specific ways to lower your chance of stroke are: * If you are a smoker, now is the time to stop smoking cigarettes * If you are diabetic, improve the control of your blood sugars * Avoid excessive amounts of alcohol * Control high blood pressure * Lose weight if you are overweight * Be sure to lead an active lifestyle * Eat a healthy diet low in salt, cholesterol and fat You should know about other risk factors for stroke that you are unable to control. These include: * Age 55 years or older * Male gender * Certain racial groups: , or / * Family History of Stroke, Mini stroke or Heart Attack * Sickle Cell Disease You will be receiving a call from the Vascular Surgery Nurse after you are discharged. FOLLOW UP VISIT: It is important for you to keep your follow up appointments with your medical provider. Keep any scheduled doctor appointments. Call [phone] to schedule a follow up appointment if one not already scheduled. Pending Studies at Discharge: No Stand-Alone Forms: My [facility] Skilled Items Patient informed of condition?: Yes DNR: No Discharge Level of Care: Acute rehab Communicable Disease: No Discharge Prognosis: Improving Lines: None Urinary Catheter: No Medications and DC Order Prescriptions: New clopidogrel 75 mg Tablet 75 mg PO QAM Qty: 30 RF: 0 atorvastatin 80 mg tablet 80 mg PO DAILY Qty: 30 RF: 0 acetaminophen 500 mg Tablet 1,000 mg PO Q8 PRN (Reason: pain) Qty: 30 RF: 0 polyethylene glycol 3350 [Miralax] 17 gram Powder In Packet 17 g PO DAILY Qty: 30 RF: 0 Lantus Solostar U-100 Insulin 100 unit/mL (3 mL) Insulin Pen 12 unit SC BID Qty: 15 RF: 0 tramadol 50 mg tablet 50 mg PO BID Qty: 14 RF: 0 Continued Jardiance 10 mg tablet 10 mg PO QAM RF: 0 metformin 500 mg tablet 1,000 mg PO HS RF: 0 oxybutynin chloride 10 mg tablet extended release 24hr 10 mg PO QAM RF: 0 pentoxifylline 400 mg tablet extended release 1 tab PO BID RF: 0 fluoxetine 20 mg tablet 60 mg PO QAM RF: 0 levothyroxine 150 mcg tablet 150 mcg PO QAM RF: 0 letrozole 2.5 mg tablet 2.5 mg PO QAM RF: 0 lisinopril 2.5 mg tablet 2.5 mg PO QAM RF: 0 cholecalciferol (vitamin D3) 4,000 unit Capsule 4,000 unit PO QAM RF: 0 aspirin 81 mg Tablet,Delayed Release (Dr/Ec) 81 mg PO QAM Qty: 0 RF: 0 cholecalciferol (vitamin D3) [Vitamin D3] 25 mcg (1,000 unit) Capsule 25 mcg PO QPM RF: 0 Probiotic 3 billion cell Capsule 3,000 mmu cells PO QAM RF: 0 cyanocobalamin (vitamin B-12) 1,000 mcg Capsule 1,000 mcg PO HS RF: 0 Discontinued atorvastatin 40 mg tablet 40 mg PO QAM RF: 0 glipizide 5 mg tablet extended release 24hr 2.5 mg PO QAM RF: 0 ibuprofen [Motrin IB] 200 mg Capsule 600 mg PO Q6H PRN (Reason: Pain) RF: 0 Discharge Orders: Discharge Order (Routine); Ordered 12/16/19 Ordered By: Orquidea Bledsoe/Other Patient Handouts: Managing Type 2 Diabetes Admission Data Admit Date/Time: 12/07/19 20:52 Attending Provider: Orquidea Loredo Admit Provider: Patricia Hernández Primary Care Provider: PCP,NO Other Providers: [facility] ; Maribell Roa [facility] [place] ; Jose Patterson ; Zane Lorenz ; Dev Sears ; Kal Maza ; Moe Guaman ; Zane Boyd ; Glenn Cervantes ; Bj Richards ; Daniel Álvarez ; Ben Severnio ; Taruus Rodrigues Other Interventions: Discharge Summary Assessment (RN) Last Done: 12/16/19 14:21 DC Date/Time DO NOT enter until pt leaves facility: 12/16/19 15:28 Coding Level of Care Code D/C Day Management >30 mins Diagnoses Stroke due to embolism of carotid artery I63.139 Right upper extremity numbness R20.0 Type 2 diabetes mellitus E11.9 Hyperlipidemia E78.5 Hypertension I10 Carotid artery stenosis I65.29 Depression F32.9 Fracture of ankle, bimalleolar, right, closed S82.841A Hypothyroid E03.9 Breast cancer C50.511; Z17.0 Breast location: lower outer quadrant of breast Estrogen receptor status: positive Laterality: right Patient sex: female Constipation K59.00 DVT prophylaxis Z29.9
--- NOTE | 2019-12-15 16:32 | Hospitalist Progress Note ---
Date of Service December 15, 2019 Assessment & Plan (1) Stroke due to embolism of carotid artery: Presented with difficulty with speech and right sided numbness and weakness -Was found to have several small acute infarcts within the left centrum semiovale and left parietal and temporal lobes CT angiogram of the head neck revealed severe stenosis of the proximal bilateral internal carotid arteries more severe on the left with 90% stenosis of the proximal left ICA and 80% stenosis of the proximal right ICA -Was already on aspirin, and added Plavix 75mg daily -Increased Lipitor to 80mg daily symptoms of right arm tingling and weakness are resolved speech is much improved, right-sided weakness is resolved Blood pressures are appropriate Echocardiogram with preserved EF, no regional wall motion abnormalities or valvular abnormalities, no ASD and no evidence of right to left interatrial shunt appreciate neurology consultation appreciate vascular surgery consult performed Left CEA on 12/10/[address] Sears doing great post op, stable on PCU, some pain in left side of neck -Plan to use aspirin and Plavix combined until she can be transitioned off of Prozac, see below plan for rehab- insurance authorization denied at acute rehab despite peer to peer discussion by myself with Dr. Kalina Salgado at [facility]. (2) Right upper extremity numbness: due to stroke, MRI brain shows left parietal and temporal lobe scattered strokes symptoms resolved PT/OT involved (3) Type 2 diabetes mellitus: Blood sugars remain elevated today. Hemoglobin A1c here is 7.9%-could be with improved control for her age and comorbidities -Needs weight loss counseling -Continue to hold oral agents while inpatient -Continue diabetic diet Novolog SS-continue and continue Lantus -Resume Metformin, and empagliflozin on discharge along with Lantus and Novolog- would dc glipizide in favor of insulin if needed (4) Hyperlipidemia: increase Lipitor from 40mg to 80mg due to stroke and severe/critical stenosis of the carotid arteries Lipid panel here with total cholesterol 124, LDL 54, HDL 29 (5) Hypertension: BP is controlled with Lisinopril (6) Carotid artery stenosis: bilateral, left is severe/critical with 90% and stroke on left side right is moderate to severe, no need for intervention at this time s/p left CEA on 12/10/[address] Sears treat with Lipitor 80mg daily aspirin 81mg and Plavix 75mg daily continue dual antiplatelets until PCP can change SSRI, see below once off Prozac then could just use Plavix With some postoperative swelling Discussed case with vascular surgery-stable for discharge from their standpoint with follow-up in the office 2 weeks from the time of surgery -Will need continued surveillance of the right side as an outpatient (7) Depression: on Prozac Prozac interacts with Plavix, decreases the effectiveness of the Plavix would recommend changing SSRI as outpatient, would require taper off of Prozac will defer to PCP, for now will continue as pt reports she really would like to stay on Prozac mood is stable (8) Fracture of ankle, bimalleolar, right, closed: never c/o pain on day one, then had pain and swelling and could not walk on day 2 of admission ankle clearly swollen and tender with decreased ROM Right ankle x-ray shows minimally displaced distal fibula fracture and medial malleolus fracture Consulted orthopedic surgery, now status post ORIF on 12/12 -Appreciate orthopedic follow-up recommendations -Pain control as needed-with acetaminophen 1000 mg p.o. every 8 hours as needed for pain Nonweightbearing on the right lower extremity x2 weeks as per orthopedic recommendations (9) Hypothyroid: TSH normal here at 0.371 -Continue home dose of levothyroxine 150 mcg once daily (10) Breast cancer: Continue home letrozole (11) Constipation: continue on MiraLAX daily -continue senna/docusate once daily -Continue to monitor (12) DVT prophylaxis: Orthopedics asked that she not be on Lovenox-discontinued Continue aspirin, Plavix, SCD to the left leg Disposition-medically stable for discharge at this time, awaiting insurance authorization for rehab placement-denied at acute rehab, I did peer to peer with Dr. Sharon Salgado-denied but approved for SNF--> pt wants to do a family appeal Admission and Anticipated Discharge Date Admission Date: December 07, 2019 Subjective Pt feeling well today, less pain in left side of neck and right ankle pain is better controlled. Denies speech issues, no weakness, no CP or SOB, still no BM but has had 2 doses of Miralax Tele with sinus arrhythmia, rates 80-90s Review of Systems Review of Systems: All systems reviewed & are unremarkable except as noted in HPI & below Physical Exam Constitutional: WD/WN, vitals as above + obese Eyes: + anicteric sclerae and EOM intact bilaterally Neck: trachea midline, no thyromegaly + abnormal visual inspection (Left side of neck with surgical wound healing with Dermabond in place, mild to moderate edema) Respiratory: normal respiratory effort, lungs clear to auscultation Cardiovascular: RRR, no murmur, no edema Chest (Breasts): Chest: normal inspection of chest Gastrointestinal (Abdomen): normal bowel sounds, soft, nontender, no hepatosplenomegaly Musculoskeletal: Extremities: no cyanosis and no clubbing Ankle: + ankle abnormal to inspection (Right leg and ankle and foot with splint and Mikey wrap in place, able to wiggle toes and sensation intact in the toes bilaterally) Skin: no rashes, warm and dry Neurologic: moves all extremities and awake; no focal motor deficits (Unable to assess ankle motion but is able to wiggle toes on the right, with full strength in the right upper extremity as well as everywhere else) Speech / Cognition: normal speech, no expressive aphasia and normal cognition Motor/Sensory: no sensory deficit Psychiatric: A+Ox3, euthymic affect Lymphatic: no lymphedema Results & Data Results & Data ([facility]) Vital Signs (Past 12 Hours) Vital Signs Temp Pulse Resp BP Pulse Ox 12/15/19 15:47 37.7 C H 77 18 130/74 95 12/15/19 11:41 37.1 C 76 19 129/61 96 12/15/19 07:39 37.4 C 73 20 117/72 95 PG Care Time/CCT Total # of Minutes Spent Total Time Spent with Patient: Total time spent is greater than 50% in coordination of care (as documented) at patient's floor/unit and/or counseling patient: Coding Level of Care Code 88083 Subseq Hosp Care Lvl 2 Diagnoses Stroke due to embolism of carotid artery I63.139 Right upper extremity numbness R20.0 Type 2 diabetes mellitus E11.9 Hyperlipidemia E78.5 Hypertension I10 Carotid artery stenosis I65.29 Depression F32.9 Fracture of ankle, bimalleolar, right, closed S82.841A Hypothyroid E03.9 Breast cancer C50.511; Z17.0 Breast location: lower outer quadrant of breast Estrogen receptor status: positive Laterality: right Patient sex: female Constipation K59.00 DVT prophylaxis Z29.9 (1) Breast cancer Breast location: lower outer quadrant of breast Estrogen receptor status: positive Laterality: right Patient sex: female Qualified Code(s): C50.511 - Malignant neoplasm of lower-outer quadrant of right female breast; Z17.0 - Estrogen receptor positive status [ER+]
[2019-12-15] MEDS: IBUPROFEN 600 MG TAB PO PRN (18:28)
[2019-12-15] MEDS: CYANOCOBALAMIN 500 MCG TABLET (VITAMIN B-12) PO SCH (20:55)
[2019-12-16] MEDS: LEVOTHYROXINE SODIUM 150 MCG TABLET PO SCH (05:59)
[2019-12-16] MEDS: INSULIN GLARGINE SOLOSTAR 100 UNITS/ML 3 ML PEN SC SCH (08:01)
[2019-12-16] MEDS: INSULIN ASPART 100 UNITS/ML 3 ML PEN SC SCH ×2 (08:02→12:03)
[2019-12-16] MEDS: TRAMADOL HCL 50 MG TABLET PO SCH (08:04)
[2019-12-16] MEDS: LETROZOLE 2.5 MG TAB PO SCH (08:05)
[2019-12-16] MEDS: OXYBUTYNIN CHLORIDE XL 5 MG TABCR PO SCH (08:05)
[2019-12-16] MEDS: LACTOBACILLUS ACIDOPHILUS (FLORANEX) TAB PO SCH (08:06)
[2019-12-16] MEDS: CLOPIDOGREL BISULFATE 75 MG TAB PO SCH (08:06)
[2019-12-16] MEDS: ASPIRIN 81 MG ECTAB PO SCH (08:06)
[2019-12-16] MEDS: FLUOXETINE HCL 20 MG CAP PO SCH (08:07)
[2019-12-16] MEDS: POLYETHYLENE (MIRALAX) 17 GM PACK PO SCH (08:07)
[2019-12-16] MEDS: CHOLECALCIFEROL 1,000 UNITS 25 MCG TAB PO SCH (08:08)
[2019-12-16] MEDS: PENTOXIFYLLINE 400MG EXT REL TAB PO SCH (08:08)
[2019-12-16] MEDS: ATORVASTATIN 40 MG TAB PO SCH (08:08)
[2019-12-16 08:10] LABS: Creatinine Clr Calc Pharmacy 51.7 ml/min; Est GFR (African American) 56.4; Est GFR (Non-African American) 48.7
--- NOTE | 2019-12-16 12:30 | Orthopedic Progress Note ---
Date of Service December 16, 2019 Assessment & Plan (1) Status post ORIF of fracture of ankle: PT/OT DVT prophy with TEDs/SCD's, Aspirin and Plavix Pain control with PO meds Keep splint in place NWB on Right LE with walker assistance Ice with EZ wrap Elevation of Rt LE Follow up at [facility] with Yo Porras PA-C in 2 wks (12/28/19). Plan on starting WBAT in CAM boot at that visit pending x-ray evaluation With questions call Admission and Anticipated Discharge Date Admission Date: December 07, 2019 Anticipated date of discharge: 12/15/19 Subjective This 74 yo F is day 3 s/p ORIF of Right ankle bimalleolar fracture. She reports her pain is well controlled on oral medication - not having much pain at all, actually. Patient states that she is doing better with PT this AM. She denies CP, SOB, nausea, vomiting, fever, chills, sweats, lethargy or numbness/tingling in her Right foot/ankle. Physical Exam Physical Exam: General: resting comfortably in bed in NAD R foot: splint fitting well. Toes w/wp. Wiggles toes. SILT over the toes. Results & Data ([facility]) Vital Signs (Past 12 Hours) Vital Signs Temp Pulse Resp BP Pulse Ox 12/16/19 08:03 36.5 C 63 18 126/79 97 12/16/19 05:30 36.6 C 61 18 126/71 97
== END 2019-12-16 15:28 | DRG 39 ==
LOC: ED 17:09 → SUATTDRO 20:52 → 2S 20:52 → 1E 12-10 16:52 → 2S 12-11 09:10